=== PATIENT | female | born 1965 | race Caucasian/White ===

== ENCOUNTER 2023-03-30 17:30 | Outpatient (REF) | payer MEDICAID, SELFPAY ==
[2023-03-30 18:18] LABS: Appearance Urine Clear; Color Urine Yellow; Glucose Urine UA Negative (Negative); Leukocyte Esterase Urine Trace (Negative); Nitrite Urine Negative (Negative); PH 6.5 (5.0-9.0); UMIC TRIGGER UACC YES; Urine Blood Negative (Negative); Urine Ketones Negative (Negative); Urine Protein Negative (Neg-Trace)
[2023-03-30 18:23] LABS: Bacteria Urine None Seen (None Seen); Hyaline Casts Urine 0-2 /LPF (0-2); RBC Urine 0-2 /HPF (0-2); Squamous Epithelial Cell Urine 0-2 /HPF (0-2); WBC Urine 0-5 /HPF (0-5)
[2023-03-31 04:33] LABS: CT PCR NOT DETECTED (Not Detect.); NG PCR NOT DETECTED (Not Detect.)
[2023-03-31 15:41] LABS: BV Int Neg Control Negative (Negative); BV Int Pos Control Positive (Positive)
== END 2023-03-30 17:31 | disposition home or self-care (01) ==
LOC: HO.HHCLNP 17:30
PROVIDERS: Visit Provider Family Medicine
DX: R30.0 Dysuria (principal); N76.0 Acute vaginitis
CPT/HCPCS: 0353U; 81001; 87086; 87480; 87510; 87660

== ENCOUNTER 2023-07-07 13:52 | Outpatient (REF) | payer MEDICAID, SELFPAY ==
[2023-07-07 18:42] LABS: CT PCR NOT DETECTED (Not Detect.); NG PCR NOT DETECTED (Not Detect.)
[2023-07-09 14:30] LABS: BV Int Neg Control Negative (Negative); BV Int Pos Control Positive (Positive)
== END 2023-07-07 13:53 | disposition home or self-care (01) ==
LOC: HO.HHCLNP 13:52
PROVIDERS: Visit Provider Family Medicine
DX: N89.8 Other specified noninflammatory disorders of vagina (principal); Z11.3 Encounter for screening for infections with a predominantly sexual mode of transmission
CPT/HCPCS: 0353U; 87480; 87510; 87660

== ENCOUNTER 2023-09-28 17:53 | Outpatient (REF) | payer MEDICAID, SELFPAY ==
[2023-09-28 18:09] LABS: Appearance Urine Cloudy; Color Urine Yellow; Glucose Urine UA Negative (Negative); Leukocyte Esterase Urine Large (3+) (Negative); Nitrite Urine Negative (Negative); Specific Gravity - Urine 1.015 (1.005-1.025); UMIC TRIGGER UACC YES; Urine Blood Negative (Negative); Urine Ketones Negative (Negative); Urine Protein Negative (Neg-Trace)
[2023-09-28 18:15] LABS: Bacteria Urine 2+ (None Seen); Hyaline Casts Urine 0-2 /LPF (0-2); RBC Urine 0-2 /HPF (0-2); UACC Culture Trigger YES; WBC Urine 21-50 /HPF (0-5)
== END 2023-09-28 17:54 | disposition home or self-care (01) ==
LOC: HO.HHCLNP 17:53
PROVIDERS: Visit Provider Student in an Organized Health Care Education/Training Program
DX: R30.9 Painful micturition, unspecified (principal)
CPT/HCPCS: 81001; 87086

== ENCOUNTER 2024-03-28 17:50 | Outpatient (REF) | payer MEDICAID, SELFPAY ==
[2024-03-28 18:13] LABS: Appearance Urine Clear; Color Urine Yellow; Glucose Urine UA 250 mg/dL (Negative); Leukocyte Esterase Urine Small (1+) (Negative); Nitrite Urine Negative (Negative); UMIC TRIGGER UACC YES; Urine Blood Negative (Negative); Urine Ketones Negative (Negative); Urine Protein Negative (Neg-Trace)
[2024-03-28 18:40] LABS: Bacteria Urine Trace (None Seen); Hyaline Casts Urine 0-2 /LPF (0-2); RBC Urine 0-2 /HPF (0-2); UACC Culture Trigger YES; WBC Urine 0-5 /HPF (0-5)
== END 2024-03-28 17:51 | disposition home or self-care (01) ==
LOC: HO.HHCLNP 17:50
PROVIDERS: Visit Provider Student in an Organized Health Care Education/Training Program
DX: R30.0 Dysuria (principal)
CPT/HCPCS: 81001; 87086

== ENCOUNTER 2024-05-23 18:33 | Outpatient (REF) | payer MEDICAID, SELFPAY ==
[2024-05-24 09:19] LABS: Bacterial Vaginosis PCR NEGATIVE (Negative); Candida Group PCR NOT DETECTED (Not Detect); Candida glab krusei PCR NOT DETECTED (Not Detect); Trichomonas vaginalis PCR NOT DETECTED (Not Detect)
== END 2024-05-23 18:34 | disposition home or self-care (01) ==
LOC: HO.HHCLNP 18:33
PROVIDERS: Visit Provider Advanced Practice Midwife
DX: B37.31 Acute candidiasis of vulva and vagina (principal)
CPT/HCPCS: 0352U

== ENCOUNTER 2024-06-15 14:00 | Outpatient (REF) | payer MEDICAID, SELFPAY | END 2024-06-15 14:01 | disposition home or self-care (01) | LOC: HO.HHCLNP 14:00 | PROVIDERS: Visit Provider Family Medicine | DX: R30.0 Dysuria (principal); N30.00 Acute cystitis without hematuria | CPT/HCPCS: 87086; 87147 ==

== ENCOUNTER 2024-07-18 18:20 | Outpatient (REF) | payer MEDICAID, SELFPAY ==
[2024-07-18 18:49] LABS: Appearance Urine Cloudy; Color Urine Yellow; Glucose Urine UA Negative (Negative); Leukocyte Esterase Urine Large (3+) (Negative); Nitrite Urine Negative (Negative); UMIC TRIGGER UACC YES; Urine Blood Negative (Negative); Urine Ketones Negative (Negative); Urine Protein Negative (Neg-Trace)
[2024-07-18 18:54] LABS: Bacteria Urine Trace (None Seen); Hyaline Casts Urine 0-2 /LPF (0-2); RBC Urine 0-2 /HPF (0-2); UACC Culture Trigger YES; WBC Urine 21-50 /HPF (0-5)
[2024-07-19 13:16] LABS: Bacterial Vaginosis PCR NEGATIVE (Negative); Candida Group PCR NOT DETECTED (Not Detect); Candida glab krusei PCR NOT DETECTED (Not Detect); Trichomonas vaginalis PCR NOT DETECTED (Not Detect)
== END 2024-07-18 18:21 | disposition home or self-care (01) ==
LOC: HO.HHCLNP 18:20
PROVIDERS: Visit Provider Family Medicine
DX: B37.31 Acute candidiasis of vulva and vagina (principal)
CPT/HCPCS: 0352U; 81001; 87086; 87147

== ENCOUNTER 2024-08-10 14:13 | Outpatient (REF) | payer MEDICAID, SELFPAY ==
[2024-08-11 08:51] LABS: Adenovirus PCR Not Detected (Not Detect.); Bordetella parapertussis PCR Not Detected (Not Detect.); Bordetella pertussis PCR Not Detected (Not Detect.); Chlamydia pneumoniae PCR Not Detected (Not Detect.); Coronavirus 229E PCR Not Detected (Not Detect.); Coronavirus HKU1 PCR Not Detected (Not Detect.); Coronavirus NL63 PCR Not Detected (Not Detect.); Coronavirus OC43 PCR Not Detected (Not Detect.); Human metapneumovirus PCR Not Detected (Not Detect.); Influenza A PCR Not Detected (Not Detect.); Influenza B PCR Not Detected (Not Detect.); Mycoplasma pneumoniae PCR Not Detected (Not Detect.); Parainfluenza 1 PCR Not Detected (Not Detect.); Parainfluenza 2 PCR Not Detected (Not Detect.); Parainfluenza 3 PCR Not Detected (Not Detect.); Parainfluenza 4 PCR Not Detected (Not Detect.); RSV PCR Not Detected (Not Detect.); Rhino/Enterovirus PCR Not Detected (Not Detect.)
[2024-08-11 09:56] LABS: SARS-CoV-2 PCR Not Detected (Not Detect.)
== END 2024-08-10 14:14 | disposition home or self-care (01) ==
LOC: HO.HHCLNP 14:13
PROVIDERS: Visit Provider Family Medicine
DX: J06.9 Acute upper respiratory infection, unspecified (principal)
CPT/HCPCS: 87633

== ENCOUNTER 2024-09-05 14:32 | Outpatient (REF) | payer MEDICAID, SELFPAY ==
--- OUTSIDE RECORDS SUMMARY | 2024-09-05 18:28 | XMS_ITS | Encounter Summary ---
Author Organization [facility] Address [address] 7t [place] [address] Care Team Providers Care Business Area Manager Name Role Phone Rina Solorio MD Primary Care Provider [phone] Reason for Referral * Imaging (Routine) - Authorized Specialty Diagnoses / Procedures Referred By Contac t Referred To Contact Radiology Diagnoses Breast pain, left Procedures BI US Breast Limited Left Misty Krishna MD [address] [place] [address] Phone: tel: fax: [address] Phone: tel: fax: Referral ID Status Reason Start Date Expiration Date V isits Requested Visits Authorized [id number] Authorized 08/27/2024 08/27/2025 1 1 * Imaging (Routine) - Authorized Specialty Diagnoses / Procedures Referred By Contac t Referred To Contact Radiology Diagnoses Breast pain, left Procedures BI Mammogram Diagnostic Tomosynthesis added left Misty Krishna MD [address] [place] [address] Phone: tel: fax: [address] Phone: tel: fax: Referral ID Status Reason Start Date Expiration Date V isits Requested Visits Authorized [id number] Authorized 08/27/2024 08/27/2025 1 1 Encounter Details Date Type Department Care Team (Late st Contact Info) Description 08/27/2024 2:40 PM EST Office Visit [facility] [address] [place] [address] Misty Krishna MD [address], [place] [phone] Breast pain, left (Primary Dx) Social History Tobacco Use Types Packs/Day Years Used Date Smoking Tobacco: Never Passive Smoke Exposure: Never Smokeless Tobacco: Never Alcohol Use Standard Drinks/Week Comments Never 0 (1 standard drink = 0.6 oz pur e alcohol) Housing Stability Answer Date Recorded What is your housing situation today? I have moy marcum 03/06/[address] you li ve. Do you have problems with any of the following? None of the above 03/06/2024 Food Insecurity Answer Date Recorded Within the past 12 months, y ou worried that your food would run out before you got money to buy more: Never True 03/06/2024 Within the past 12 months,th e food you bought just didn't last and you didn't have enough money to get more: Never True Transportation Answer Date Recorded In the past 12 months, has l ack of transportation kept you from medical appts, meetings, work or from getting things needed for daily living? Yes, it has kept me from medical appointments or getting medications. 03/06/2024 Utilities Answer Date Recorded In the past 12 months, has t he electric, gas, oil or water company threatened to shut off services in your home? No 03/06/2024 Internet Access Answer Date Recorded Internet Access Q1 Yes 2024 Internet Access Q2 Not on file 2024 Comments No Sex and Gender Information Value Date Recorded Sex Assigned at Female 06/06/2022 10:22 AM EDT Legal Sex Female 10:22 AM EDT Gender Identity Female 06/06/2022 10:22 AM EDT Sexual Orientation Choose not to disclose 2021 10:22 AM EDT documented as of this encounter Last Filed Vital Signs Vital Sign Reading Time Taken Comments Blood Pressure 129/74 08/27/2024 2:17 PM EST Pulse 100 08/27/2024 2:17 PM EST Temperature 36.2 ??C (97.1 ??F) 08/27/2024 2:17 PM ES T Respiratory Rate 18 08/27/2024 2:17 PM EST Oxygen Saturation 99% 08/27/2024 2:17 PM EST Inhaled Oxygen Concentration - - Weight 62.6 kg (138 lb) 08/27/2024 2:17 PM EST Height 151.1 cm (4' 11.5 ) 08/27/2024 2:17 PM ES T Body Mass Index 27.41 08/27/2024 2:17 PM EST documented in this encounter Progress Notes * Lamin Zepeda - 08/27/2024 2:40 PM EST Subjective Patient ID: Yobany Lamar is a 59 y.o. female with PMHx of chronic cystitis and suprapubic tenderness who presents to walk in clinic for left arm and breast pain. Mammogram done 04/27/24, BIRADS - 1, negative. Pt had dental quaker done earlier today. No complications. She reports she has had pain across her left upper chest for the past 2 weeks. Pt notes pain is deep in her breast. She denies any associated symptoms, including dizziness, SOB, tingling in upper extremities or palpitations. She notes he is only due for her next mammogram in April 2025 as a routine check. Review of Systems Constitutional: Negative for fever and unexpected weight change. Respiratory: Negative for shortness of breath. Cardiovascular: Negative for chest pain. Gastrointestinal: Negative for abdominal pain. Genitourinary: Negative for difficulty urinating. Objective Visit Vitals BP 129/74 (BP Location: Right arm, Patient Position: Sitting, BP Cuff Size: Adult) Pulse 100 Temp 97.1 ??F (36.2 ??C) (Temporal) Resp 18 Body mass index is 27.41 kg/m??. Physical Exam Constitutional: Appearance: Normal appearance. Cardiovascular: Rate and Rhythm: Normal rate and regular rhythm. Heart sounds: Normal heart sounds. Pulmonary: Effort: Pulmonary effort is normal. Breath sounds: Normal breath sounds. Chest: Chest wall: No mass or tenderness. Breasts: Left: Tenderness present. No swelling, inverted nipple or mass. Abdominal: Tenderness: There is no abdominal tenderness. Musculoskeletal: Cervical back: Normal range of motion and neck supple. Lymphadenopathy: Cervical: No cervical adenopathy. Upper Body: Left upper body: No supraclavicular, axillary or pectoral adenopathy. Neurological: General: No focal deficit present. Mental Status: She is alert. Psychiatric: Behavior: Behavior normal. Problem List Items Addressed This Visit Breast pain, left - Primary Breast pain in left lateral breast x2 weeks. Normal mammogram in 04/2024. -ordered repeat mammogram 08/27/24 -ordered US of left breast tissue 08/27/24 Relevant Orders BI Mammogram Diagnostic Tomosynthesis added left BI US Breast Limited Left -No evidence of acute disease process. Suspect likely costochondritis.. Symptoms mild. -Will order imaging as specified in the plan for further evaluation of breast tissue. -ER precautions discussed. -Seek medical attention for worsening symptoms. I, Lamin Zepeda, am serving as a scribe to document services personally performed by Dr. Post, based on the patient's response to questions by provider and providers statements to me. documented in this encounter Miscellaneous Notes * Assessment & Plan Note - Lamin Zepeda - 08/27/2024 2:36 PM ESTAssociated Problem(s): Breast pain, left Breast pain in left lateral breast x2 weeks. Normal mammogram in 04/2024. -ordered repeat mammogram 08/27/24 -ordered US of left breast tissue 08/27/24 documented in this encounter Plan of Treatment Upcoming Encounters Date Type Department Care Team (Late st Contact Info) Description 09/06/2024 11:30 AM EST Office Visit [facility] [address] [place] [address] Aminta Chicas, JEFF [address] [place] [address] Scheduled Orders Name Type Priority Associated Diagnoses Orde r Schedule BI Mammogram Diagnostic Tomosynthesis added left Imaging Routine Breast pain, left Expected: 08/27/2024, Expires: 10/25/2025 BI US Breast Limited Left Imaging Routine Breast pain, left Expected: 08/27/2024, Expires: 10/25/2025 documented as of this encounter Visit Diagnoses Diagnosis Breast pain, left- Primary documented in this encounter Care Teams Business Area Manager Relationship Specialty Start Date End Date Rina Solorio MD [address] [place] [id number] PCP - General Family Medicine 12/15/15 documented as of this encounter
--- OUTSIDE RECORDS SUMMARY | 2024-09-05 18:28 | XMS_ITS | Encounter Summary ---
Author Organization [facility] Address [address] 7 [place] [address] Care Team Providers Care Veneer Sander Name Role Phone Rina Solorio MD Primary Care Provider [phone] Reason for Visit * Reason Comments Filling Encounter Details Date Type Department Care Team ([facility] Contact Info) Description 08/06/2024 8:00 AM EST Office Visit [facility] [address] [place], [place] [phone] Aminta Chicas DMD [address] [place], [place] [phone] Social History Tobacco Use Types Packs/Day Years [...] t he electric, gas, oil or water [employer] threatened to shut off services in your [...] Sign Reading Time Taken Comments Blood Pressure 120/80 08/06/2024 8:06 AM EST Pulse - - Temperature - - Respiratory Rate - - Oxygen Saturation - - Inhaled Oxygen Concentration - - Weight - - Height - - Body Mass Index - - documented in this encounter Progress Notes * Aminta Chicas DMD - 08/06/2024 8:00 AM EST Dental procedures in this visit [id number] - RESIN-BASED COMPOSITE - 2 SURFACES, POSTERIOR 31 DO (Completed) Service provider: Aminta Chicas DMD Billing provider: Gm Petersen DMD [id number] - CASE PRESENTATION, DETAILED AND EXTENSIVE TREATMENT PLANNING (Completed) Service provider: Aminta Chicas DMD Billing provider: Gm Petersen DMD Patient ID: Yobany Lamar is a 59 y.o. female. Time Out: Date: 08/06/2024 Location: [facility] Tooth: #31 Procedure: Yarsani Verified the above with patient, senior office assistant, and provider. Confirmed via patient's chart, intraorally and by radiographs. Directory Carrier: Yes. Language: German. Directory Carrier's Name: Ani Osman Composite religion done on #[address] Aminta Chicas DMD Risk, benefits, and alternatives discussed with the patient. CONSENT FORM INITIALED & SIGNED BY THE PATIENT AND COUNTERSIGNED BY Dr. Aminta Chicas DMD Medical history: Reviewed in EHR Vitals: Blood pressure 120/80. Allergies: Reviewed in EHR Medications: Reviewed in EHR ASA II - LA: 20% topical benzocaine; local infiltration with 1 carpule 2% lidocaine 1:100,000 epinephrine - Existing religion and recurrent decay removed - Matrix band used as needed - Desensitizer: GLUMA - Etching done using 37% phosphoric acid and rinsed. - revenue field agent applied and light cured. - Composite religion done using Filtek body and flowable composite, shade A3.5 - Anatomy and margins adjusted. - Occlusion checked with articulating paper. - Necessary reductions made. - Yarsani smoothed and polished. - Post op instructions given. - Patient made aware possible post op sensitivity. All patient questions answered. Patient comfortable upon dismissal. NV: Restorations Provider: Dr. Aminta Chicas DMD Repatcher: Ani Osman Supervising Dentist: Dr. Gm Petersen DMD * Gm Petersen DMD - 08/06/2024 8:00 AM EST I have reviewed the documentation and dental procedures made by the rendering provider, Aminta Chicas DMD, and approve their chart entries for this visit. Gm Petersen DMD documented in this encounter Plan of Treatment Upcoming Encounters Date Type Department Care Team (Late st Contact Info) Description 09/06/2024 11:30 AM EST Office Visit [facility] [address] [place] [address] Aminta Chicas DMD [address] [place] [address] documented as of this encounter Procedures Procedure Name Priority Date/Time Associated Diagnosis Comments 31 DO RESTORATIVE - RESIN-BASED COMPOSITE RESTORATIONS - DIRECT - RESIN-BASED COMPOSITE - TWO SURFACES, POSTERIOR Routine 08/06/2024 8:00 AM EST ADJUNCTIVE GENERAL SERVICES - PROFESSIONAL VISITS - CASE PRESENTATION, SUBSEQUENT TO DETAILED AND EXTENSIVE TREATMENT PLANNING Routine 08/06/2024 8:00 AM EST documented in this encounter Visit Diagnoses Not on filedocumented in this encounter Care Teams Veneer Sander Relationship Specialty Start Date End Date Rina Solorio MD [address] [place] [address] PCP - General Family Medicine 12/15/15 documented as of this encounter
--- OUTSIDE RECORDS SUMMARY | 2024-09-05 18:28 | XMS_ITS | Encounter Summary ---
Author Organization [facility] Address [address] 7 [place] [address] Care Team Providers Care Maintenance Planning Clerk Name Role Phone Rina Solorio MD Primary Care Provider [phone] Reason for Visit * Reason Comments Follow-up Dm Encounter Details Date Type Department Care Team ([facility] Contact Info) Description 09/05/2024 9:00 AM EST Office Visit [facility] [address] [place] [address] Rina Solorio MD [address] [place] [address] Atrophic vaginitis (Primary Dx); Type 2 diabetes mellitus without complication, without long-term current use of insulin ([facility]); Dietary counseling; Exercise counseling; Acute vaginitis; Insect sting allergy, current reaction, accidental or unintentional, initial encounter; Breast pain, left Social History Tobacco Use Types Packs/Day Years Used Date Smoking Tobacco: Never Passive Smoke Exposure: Never Smokeless Tobacco: Never Alcohol Use Standard Drinks/Week Comments Never 0 (1 standard drink = 0.6 oz pur e alcohol) Housing Stability Answer Date Recorded What is your housing situation today? I have moywong marcum 03/06/[address] you [...] Sign Reading Time Taken Comments Blood Pressure 130/80 09/05/2024 9:19 AM EST Pulse 92 09/05/2024 9:03 AM EST Temperature 36.4 ??C (97.6 ??F) 09/05/2024 9:03 AM ES T Respiratory Rate 20 09/05/2024 9:03 AM EST Oxygen Saturation 99% 09/05/2024 9:03 AM EST Inhaled Oxygen Concentration - - Weight 62.1 kg (137 lb) 09/05/2024 9:03 AM EST Height 151.1 cm (4' 11.5 ) 09/05/2024 9:03 AM ES T Body Mass Index 27.21 09/05/2024 9:03 AM EST documented in this encounter Progress Notes * Rina Solorio MD - 09/05/2024 9:00 AM EST Subjective Patient ID: Yobany Lamar is a 59 y.o. female who presents for follow-up. Yobany is a 59-year-old postmenopausal patient of mine here for diabetes follow- up. A1c has increased to 6.3 today. Admits her diet has slacked recently. And has gained a few pounds. Complains of occasional discomfort during intercourse with but also admits not using estrogen vaginal cream weekly for atrophic vaginitis. Her SALES PROMOTION OFFICER exam and Pap smear are up-to-date. She was seen recently by Dr. Krishna for left breast pain, breast mammogram and ultrasound were ordered but per patient she has not been called with these appointments yet. History provided by: Patient glazier supervisor used: No Diabetes She presents for her follow-up diabetic visit. She has type 2 diabetes mellitus. There are no hypoglycemic associated symptoms. Pertinent negatives for hypoglycemia include no dizziness, headaches ornervousness/anxiousness. There are no diabetic associated symptoms. Pertinent negatives for diabetes include no chest pain, no polydipsia and no polyuria. Risk factors for coronary artery disease include post-menopausal, obesity and diabetes mellitus. Current diabetic treatment includes diet. She is compliant with treatment most of the time. Review of Systems Constitutional: Negative for activity change, chills, fever and unexpected weight change. Respiratory: Negative for cough, shortness of breath and wheezing. Cardiovascular: Negative for chest pain, palpitations and leg swelling. Gastrointestinal: Negative for abdominal pain and blood in stool. Endocrine: Negative for polydipsia and polyuria. Genitourinary: Negative for decreased urine volume, difficulty urinating, dysuria, hematuria, vaginal discharge and vaginal pain. Musculoskeletal: Negative for arthralgias and gait problem. Skin: Negative for color change and rash. Neurological: Negative for dizziness and headaches. Hematological: Negative for adenopathy. Psychiatric/Behavioral: Negative for dysphoric mood, hallucinations, sleep disturbance and suicidalideas. The patient is not nervous/anxious. Objective BP 130/80 Pulse 92 Temp 97.6 ??F (36.4 ??C) (Oral) Resp 20 Ht 4' 11.5 (1.511 m) Wt 137 lb (62.1 kg) SpO2 99% BMI 27.21 kg/m?? Physical Exam Vitals reviewed. Constitutional: General: She is not in acute distress. Appearance: Normal appearance. She is not ill-appearing. HENT: Head: Normocephalic. Right Ear: Tympanic membrane and ear canal normal. Left Ear: Tympanic membrane and ear canal normal. Nose: Nose normal. Mouth/Throat: Mouth: Mucous membranes are moist. Pharynx: No oropharyngeal exudate or posterior oropharyngeal erythema. Eyes: Extraocular Movements: Extraocular movements intact. Conjunctiva/sclera: Conjunctivae normal. Pupils: Pupils are equal, round, and reactive to light. Cardiovascular: Rate and Rhythm: Normal rate and regular rhythm. Pulses: Normal pulses. Heart sounds: Normal heart sounds. Pulmonary: Effort: Pulmonary effort is normal. No respiratory distress. Breath sounds: Normal breath sounds. Abdominal: Palpations: Abdomen is soft. Musculoskeletal: General: Normal range of motion. Cervical back: Normal range of motion. Skin: General: Skin is warm. Capillary Refill: Capillary refill takes less than 2 seconds. Neurological: General: No focal deficit present. Mental Status: She is alert and oriented to person, place, and time. Psychiatric: Mood and Affect: Mood normal. Behavior: Behavior normal. Thought Content: Thought content normal. Judgment: Judgment normal. Assessment/Plan Diagnoses and all orders for this visit: Atrophic vaginitis Comments: Patient has vaginal estrogen cream at home but admits to not using it with good compliance. UA was negative today vaginitis symptoms for which a swab was done Orders: - Lipid Panel, Standard; Future - Basic Metabolic Panel, Fasting; Future - CBC auto differential; Future - Hepatic Function Panel; Future - Vitamin D, 25-Hydroxy, Total, Immunoassay; Future - TSH W/Reflex to FT4; Future Type 2 diabetes mellitus without complication, without long-term current use of insulin ([facility]) Comments: A1c is increasing since last one now at 6.3.On diet only which has slacked lately.Plans to watch her diet more closely as before and start exercising again. Labs ordered and drawn today, she will be called with results. Return to clinic in 3 months with me. Eye exam is up-to-date. Orders: - POCT A1C - POCT glucose manually resulted - Lipid Panel, Standard; Future - Basic Metabolic Panel, Fasting; Future - CBC auto differential; Future - Hepatic Function Panel; Future - Vitamin D, 25-Hydroxy, Total, Immunoassay; Future - TSH W/Reflex to FT4; Future Dietary counseling - Lipid Panel, Standard; Future - Basic Metabolic Panel, Fasting; Future - CBC auto differential; Future - Hepatic Function Panel; Future - Vitamin D, 25-Hydroxy, Total, Immunoassay; Future - TSH W/Reflex to FT4; Future Exercise counseling - Lipid Panel, Standard; Future - Basic Metabolic Panel, Fasting; Future - CBC auto differential; Future - Hepatic Function Panel; Future - Vitamin D, 25-Hydroxy, Total, Immunoassay; Future - TSH W/Reflex to FT4; Future Acute vaginitis Check for BV and call if if needed treatment. Use of water lubricant prior intercourse recommended,use of estrogen vaginal cream weekly as well. - Lipid Panel, Standard; Future - Basic Metabolic Panel, Fasting; Future - CBC auto differential; Future - Hepatic Function Panel; Future - Vitamin D, 25-Hydroxy, Total, Immunoassay; Future - TSH W/Reflex to FT4; Future - Bacterial Vaginosis Panel - POCT Urinalysis Insect sting allergy, current reaction, accidental or unintentional, initial encounter - EPINEPHrine (EpiPen 2-Kenny) 0.3 MG/0.3ML injection syringe; Inject 0.3 mL (0.3 mg) as directed 1 (one) time if needed for anaphylaxis for up to 1 dose. Inject into upper leg. Call 911 after use. Breast pain, left Comments: Patient was seen by another provider and days ago due to left breast pain. Ultrasound and mammogramwere ordered for her but never scheduled by [facility]. [facility]. Appointments handed to the patient. documented in this encounter Plan of Treatment Upcoming Encounters Date Type Department Care Team (Late st Contact Info) Description 09/06/2024 11:30 AM EST Office Visit [facility] [address] [place] [address] Aminta Chicas, DMD [address] [place] [address] Scheduled Orders Name Type Priority Associated Diagnoses Orde r Schedule Lipid Panel, Standard Lab Routine Type 2 diabetes mellitus without complication, without long-term current use of insulin ([facility]) Dietary counseling Exercise counseling Atrophic vaginitis Acute vaginitis Expected: 09/05/2024 (Approximate), Expires: 09/05/2025 Basic Metabolic Panel, Fasting Lab Routine Type 2 diabetes mellitus without complication, without long-term current use of insulin ([facility]) Dietary counseling Exercise counseling Atrophic vaginitis Acute vaginitis Expected: 09/05/2024 (Approximate), Expires: 09/05/2025 CBC auto differential Lab Routine Type 2 diabetes mellitus without complication, without long-term current use of insulin ([facility]) Dietary counseling Exercise counseling Atrophic vaginitis Acute vaginitis Expected: 09/05/2024 (Approximate), Expires: 09/05/2025 Hepatic Function Panel Lab Routine Type 2 diabetes mellitus without complication, without long-term current use of insulin ([facility]) Dietary counseling Exercise counseling Atrophic vaginitis Acute vaginitis Expected: 09/05/2024 (Approximate), Expires: 09/05/2025 Vitamin D, 25-Hydroxy, Total, Immunoassay Lab Routine Type 2 diabetes mellitus without complication, without long-term current use of insulin ([facility]) Dietary counseling Exercise counseling Atrophic vaginitis Acute vaginitis Expected: 09/05/2024 (Approximate), Expires: 09/05/2025 TSH W/Reflex to FT4 Lab Routine Type 2 diabetes mellitus without complication, without long-term current use of insulin ([facility]) Dietary counseling Exercise counseling Atrophic vaginitis Acute vaginitis Expected: 09/05/2024 (Approximate), Expires: 09/05/2025 Bacterial Vaginosis Panel Microbiology Routine Acute vaginitis Ordered: 09/05/2024 documented as of this encounter Procedures Procedure Name Priority Date/Time Associated Diagnosis Comments POCT GLYCATED HEMOGLOBIN, TOTAL Routine 09/05/2024 10:12 AM EST Type 2 diabetes mellitus without complication, without long-term current use of insulin ([facility]) POCT URINALYSIS DIPSTICK Routine 09/05/2024 10:11 AM EST Acute vaginitis POCT GLUCOSE Routine 09/05/2024 9:04 AM EST Type 2 diabetes mellitus without complication, without long-term current use of insulin ([facility]) documented in this encounter Results * (ABNORMAL) POCT A1C (09/05/2024 10:12 AM EST) Hemoglobin A1C 6.3(A) 4.0 - 6.0 % QC Media Lot # [id number] Lot# Expiration Date 8,126 Blood 09/05/2024 10:1 2 AM EST Rina Solorio MD POINT OF CARE TEST ENTER/EDIT ORDERABLES Final Result * POCT Urinalysis (09/05/2024 10:11 AM EST) Color, UA Yellow Clarity, UA Clear Glucose, UA Negative Bilirubin, UA Negative Ketones, UA Negative Spec Grav, UA 1.015 Blood, UA Negative Negative, None Detected pH, UA 7.0 Protein, UA Negative Urobilinogen, UA 0.2 Leukocytes, UA Trace Negative, Rare, Trace Comment:small Nitrite, UA Negative Negative, None Detected Appearance, UA clear QC Media Lot # [id number] Lot# Expiration Date 33,125 Urine 09/05/2024 10:1 1 AM EST Result [facility] Rina Solorio MD POINT OF CARE TEST ENTER/EDIT ORDERABLES Final Result * POCT glucose manually resulted (09/05/2024 9:04 AM EST) Glucose Blood, POC 121 60 - 200 mg/dL QC Media Lot # Comment:[id number] Lot# Expiration Date Comment:11/12/2024 Blood Capillary blood specimen / Unknown 09/05/2024 9:04 AM EST Result [facility] Rina Solorio MD POINT OF CARE TEST ENTER/EDIT ORDERABLES Final Result documented in this encounter Visit Diagnoses Diagnosis Atrophic vaginitis- Primary Postmenopausal atrophic vaginitis Type 2 diabetes mellitus without complication, without long-term current use of insulin ([facility]) Dietary counseling Dietary surveillance and counseling Exercise counseling Acute vaginitis Unspecified vaginitis and vulvovaginitis Insect sting allergy, current reaction, accidental or unintentional, initial encounter Breast pain, left documented in this encounter Care Teams Maintenance Planning Clerk Relationship Specialty Start Date End Date Rina Solorio MD [address] [place] [address] PCP - General Family Medicine 12/15/15 documented as of this encounter
--- OUTSIDE RECORDS SUMMARY | 2024-09-05 18:28 | XMS_ITS | Encounter Summary ---
Author Organization [employer] Address 75 [facility] 7 [place] [address] Care Team Providers Care Mash Preparatory Operator Name Role Phone Rina Solorio MD Primary Care Provider [phone] Reason for Visit * Reason Onset Date Comments Chart Prep 09/04/2024 Encounter Details Date Type Department Care Team ([facility] Contact Info) Description 09/04/2024 Telephone [facility] CHC MED & PEDS [address] [place], [place] [phone] Rina Solorio MD [address] [place] [address] Chart Prep Social History Tobacco Use Types Packs/Day Years Used Date Smoking Tobacco: Never Passive Smoke Exposure: Never Smokeless Tobacco: Never Alcohol Use Standard Drinks/Week Comments Never 0 (1 standard drink = 0.6 oz pur e alcohol) Housing Stability Answer Date Recorded What is your housing situation today? I have moy [place] 03/06/[address] you li [...] AM EDT documented as of this encounter Miscellaneous Notes * Telephone Encounter - Kiki Rubio [place] - 09/04/2024 10:31 AM EST Chart Prep Labs: done Images: pending Vaccines due: yes Referrals: pending appt Screenings: eye exam , Foot Exam, STI screening Overdue care gaps: A1C, Glucose documented in this encounter Plan of Treatment Upcoming Encounters Date Type Department Care Team (Late st Contact Info) Description 09/06/2024 11:30 AM EST Office Visit [facility] CHC ADULT DENTAL [address] [place] [address] Aminta Chicas, JEFF [address] [place] [address] documented as of this encounter Visit Diagnoses Not on filedocumented in this encounter Care Teams Mash Preparatory Operator Relationship Specialty Start Date End Date Rina Solorio MD [address] [place] [address] PCP - General Family Medicine 12/15/15 documented as of this encounter
--- OUTSIDE RECORDS SUMMARY | 2024-09-05 18:28 | XMS_ITS | Encounter Summary ---
Author Organization [employer] Address 75 [facility] 7t [place] [address] Care Team Providers Care Receiving Dock Checker Name Role Phone Rina Solorio MD Primary Care Provider [phone] Encounter Details Date Type Department Care Team (Late st Contact Info) Description 08/10/2024 12:20 PM EST Office Visit [facility] [address] [place] [phone] Modesto Adrian MD [address] [place] [address] [phone] Viral URI Social History Tobacco Use Types Packs/Day Years [...] Sign Reading Time Taken Comments Blood Pressure 128/90 08/10/2024 10:36 AM EST Pulse 83 08/10/2024 10:36 AM EST Temperature 36.7 ??C (98.1 ??F) 08/10/2024 10:[address] Respiratory Rate 20 08/10/2024 10:36 AM EST Oxygen Saturation 99% 08/10/2024 10:36 AM EST Inhaled Oxygen Concentration - - Weight 62.6 kg (138 lb) 08/10/2024 10:36 AM EST Height 151.1 cm (4' 11.5 ) 08/10/2024 10:[address] Body Mass Index 27.41 08/10/2024 10:36 AM EST documented in this encounter Progress Notes * Modesto Adrian MD - 08/10/2024 12:20 PM EST Subjective History was provided by the patient. Yobany Lamar is a 59 y.o. female who presents for evaluation of symptoms of a URI. Symptoms include fever, runny nose, chills, congestion, sore throat, and headache . Onset of symptoms was 3days ago, unchanged since that time. Associated negative symptoms include nausea, vomiting, diarrhea, ear pain, and rash. Evaluation to date: none. Treatment to date: none Daughter here with similar symptoms. Objective Vitals: 08/10/24 1036 BP: 128/90 BP Location: Left arm Patient Position: Sitting BP Cuff Size: Adult Pulse: 83 Resp: 20 Temp: 98.1 ??F (36.7 ??C) TempSrc: Oral SpO2: 99% Weight: 138 lb (62.6 kg) Height: 4' 11.5 (1.511 m) Physical Exam Vitals reviewed. Constitutional: Appearance: Normal appearance. She is normal weight. HENT: Head: Normocephalic and atraumatic. Right Ear: Tympanic membrane, ear canal and external ear normal. Left Ear: Tympanic membrane, ear canal and external ear normal. Nose: Nose normal. No congestion or rhinorrhea. Mouth/Throat: Mouth: Mucous membranes are moist. Pharynx: Oropharynx is clear. Posterior oropharyngeal erythema present. No oropharyngeal exudate. Eyes: Extraocular Movements: Extraocular movements intact. Conjunctiva/sclera: Conjunctivae normal. Pupils: Pupils are equal, round, and reactive to light. Cardiovascular: Rate and Rhythm: Normal rate and regular rhythm. Heart sounds: Normal heart sounds. Pulmonary: Effort: Pulmonary effort is normal. Breath sounds: Normal breath sounds. Musculoskeletal: General: Normal range of motion. Cervical back: Normal range of motion and neck supple. Lymphadenopathy: Cervical: No cervical adenopathy. Skin: General: Skin is warm and dry. Neurological: General: No focal deficit present. Mental Status: She is alert and oriented to person, place, and time. Mental status is at baseline. Psychiatric: Mood and Affect: Mood normal. Behavior: Behavior normal. Thought Content: Thought content normal. Judgment: Judgment normal. Diagnoses and all orders for this visit: Viral URI - POCT Rapid Influenza B ANDERSON ID NOW - POCT Rapid Strep A ANDERSON ID NOW - POCT Rapid Influenza A ANDERSON ID NOW - POCT Rapid Covid-19 ANDERSON ID NOW - Respiratory Viral Panel PCR; Future Patient with a clinical presentation of viral URI Normal pulmonary exam and no respiratory distress O2 sat reassuring Rapid COVID-19, Influenza A/B, and Strep tests all negative Check Respiratory Panel send out Discussed supportive care with ample hydration, sleep position and rest OTC supportive medications reviewed Droplet precautions discussed Advised to contact the clinic if no improvement of symptoms Indications for UC/ER use reviewed documented in this encounter Plan of Treatment Upcoming Encounters Date Type Department Care Team ([facility] st Contact Info) Description 09/06/2024 11:30 AM EST Office Visit [facility] ADULT DENTAL [address] [place] [address] Aminta Chicas DMD [address] [place] [address] documented as of this encounter Procedures Procedure Name Priority Date/Time Associated Diagnosis Comments POCT COVID-19 AG ANDERSON ID NOW Routine 08/10/2024 10:50 AM EST Viral URI POCT INFLUENZA A (ID NOW RAPID MOLECULAR) Routine 08/10/2024 10:49 AM EST Viral URI POC ANDERSON ID NOW STREP A Routine 08/10/2024 10:49 AM EST Viral URI POCT INFLUENZA B (ID NOW RAPID MOLECULAR) Routine 08/10/2024 10:48 AM EST Viral URI RESPIRATORY VIRAL PANEL PCR Routine 08/10/2024 10:00 AM EST Viral URI documented in this encounter Results * POCT Rapid Covid-19 ANDERSON ID NOW (08/10/2024 10:50 AM EST) Coronavirus Antigen PCR Negative Negative, Indeterminate, None Detected, Invalid, Specimen unsatisfactory for evaluation, Weakly Positive QC Media Lot # [id number] Lot# Expiration Date Swab 08/10/2024 10:5 0 AM EST us Modesto Adrian MD POINT OF CARE TEST ENTER/EDIT OR DERABLES Final Result * POCT Rapid Influenza A ANDERSON ID NOW (08/10/2024 10:49 AM EST) Influenza A Negative Negative, Indeterminate [facility] QC Media Lot # [id number] [facility] Lot# Expiration Date [facility] Swab 08/10/2024 10:4 9 AM EST us Modesto Adrian MD POINT OF CARE TEST ENTER/EDIT OR DERABLES Final Result [facility] [address] [place] [phone] * POCT Rapid Strep A ANDERSON ID NOW (08/10/2024 10:49 AM EST) [facility] Rapid Strep A Screen Negative Negative, None Detected QC Media Lot # [id number] Lot# Expiration Date 9141,026 Swab 08/10/2024 10:4 9 AM EST Modesto Adrian MD POINT OF CARE TEST ENTER/EDIT OR DERABLES Final Result * POCT Rapid Influenza B ANDERSON ID NOW (08/10/2024 10:48 AM EST) [facility] Influenza B Negative Negative, Indeterminate [facility] QC Media Lot # [id number] [facility] Lot# Expiration Date , [facility] Swab 08/10/2024 10:4 8 AM EST Modesto Adrian MD POINT OF CARE TEST ENTER/EDIT OR DERABLES Final Result [facility] [address] [place] [phone] * Respiratory Viral Panel PCR (08/10/2024 10:00 AM EST) [facility] Adenovirus PCR Not Detected Not Detect. [facility] Bordetella pertussis PCR Not Detected Not Detect. [facility] Comment:Interpret results wi th caution. If B. pertussis isspecifically suspected, additional testing using analternate method is recommended. Bordetella parapertussis PCR Not Detected Not Detect. [facility] Chlamydia pneumoniae PCR Not Detected Not Detect. [facility] Coronavirus 229E PCR Not Detected Not Detect. [facility] Coronavirus HKU1 PCR Not Detected Not Detect. [facility] Coronavirus NL63 PCR Not Detected Not Detect. [facility] Coronavirus OC43 PCR Not Detected Not Detect. [facility] SARS-CoV-2 PCR Not Detected Not Detect. [facility] Comment:SARS-CoV-2 not detec eun by real-time RT-PCR.Note: If clinical suspicion for Sars-CoV-2 is high, continueto maintain precautions and consider repeat testing.Test results should be interpreted in the context ofclinical findings and other laboratory data.Rare polymorphisms exist that could lead to false-negativeor false-positive results. If results do not match theclinical findings, additional testing should be considered.Results reported to MARISSA TRISTAN.This test has been authorized by the FDA under the EmergencyUse Authorization (EUA) for use by authorized laboratories. Influenza A PCR Not Detected Not Detect. [facility] Influenza B PCR Not Detected Not Detect. [facility] Human metapneumovirus PCR Not Detected Not Detect. [facility] Rhino/Enterovirus PCR Not Detected Not Detect. [facility] Mycoplasma pneumoniae PCR Not Detected Not Detect. [facility] Parainfluenza 1 PCR Not Detected Not Detect. [facility] Parainfluenza 2 PCR Not Detected Not Detect. [facility] Parainfluenza 3 PCR Not Detected Not Detect. [facility] Parainfluenza 4 PCR Not Detected Not Detect. [facility] RSV PCR Not Detected Not Detect. [facility] Resp Panel NA Note See Note [facility] Comment:All results must be correlated with clinical findings.Negative results should not be used as the sole basis fordiagnosis, treatment, or other management decisions.A negative result does not exclude the possibility of viralor bacterial infection. Negative results may occur from thepresence of sequence variants in the region targeted by theassay, the presence of inhibitors, an infection caused by anorganism not detected by the panel, or lower respiratorytract infections that are not detected by a nasopharyngealswab specimen. Test results may also be affected byconcurrent antiviral/antibacterial therapy or levels oforganism in the specimen that are below the limit ofdetection for this test.This assay is performed by Multiplexed PCR, utilizing [employer]. 08/10/2024 10:0 0 AM EST 08/10/2024 2:14 PM EST us Modesto Adrian MD LAB BLOOD ORDERABLES Final Resul t [facility] [address] [place] [phone] [phone] documented in this encounter Visit Diagnoses Diagnosis Viral URI Acute upper respiratory infections of unspecified site documented in this encounter Care Teams Receiving Dock Checker Relationship Specialty Start Date End Date Rina Solorio MD [address] [place] [phone] PCP - General Family Medicine 12/15/15 documented as of this encounter
--- OUTSIDE RECORDS SUMMARY | 2024-09-05 18:28 | XMS_ITS | Encounter Summary ---
Author Organization [employer] Address 75 [facility] 7t [place] [address] Care Team Providers Care Textile Conversion Manager Name Role Phone Rina Solorio MD Primary Care Provider [phone] Encounter Details Date Type Department Care Team (Latest Contact Info) Description 09/05/2024 Travel Social History Tobacco Use Types Packs/Day Years [...] AM EDT documented as of this encounter Plan of Treatment Upcoming Encounters Date Type Department Care Team ([facility] st Contact Info) Description 09/06/2024 11:30 AM EST Office Visit [facility] ADULT DENTAL [address] [place] [address] Aminta Chicas, DMD [address] [place] [address] documented as of this encounter Visit Diagnoses Not on filedocumented in this encounter Care Teams Textile Conversion Manager Relationship Specialty Start Date End Date Rina Solorio MD [address] [place] [address] PCP - General Family Medicine 12/15/15 documented as of this encounter
--- OUTSIDE RECORDS SUMMARY | 2024-09-05 18:28 | XMS_ITS | Encounter Summary ---
Author Organization [employer] Address 75 [facility] 7 [place] [address] Care Team Providers Care Metal Moulder'S Assistant Name Role Phone Rina Solorio MD Primary Care Provider [phone] Reason for Visit * Reason Comments Filling Encounter Details Date Type Department Care Team ([facility] st Contact Info) Description 08/27/2024 9:00 AM EST Office Visit [facility] ADULT DENTAL [address] [place], [place] [phone] Aminta Chicas DMD [address] [place], [place] [phone] Social History Tobacco Use Types Packs/Day Years [...] t he electric, gas, oil or water [employer] threatened to shut off services in your [...] AM EDT documented as of this encounter Progress Notes * Aminta Chicas DMD - 08/27/2024 9:00 AM EST Dental procedures in this visit D2392 - RESTORATIVE - RESIN-BASED COMPOSITE RESTORATIONS - DIRECT - RESIN-BASED COMPOSITE - TWO SURFACES, POSTERIOR 2 DO (Completed) Service provider: Aminta Chicas DMD Billing provider: Ailyn Rodriguez DDS [id number] - ADJUNCTIVE GENERAL SERVICES - PROFESSIONAL VISITS - CASE PRESENTATION, SUBSEQUENT TO DETAILED AND EXTENSIVE TREATMENT PLANNING (Completed) Service provider: Aminta Chicas DMD Billing provider: Ailyn Rodriguez DDS Patient ID: Yobany Lamar is a 59 y.o. female. Time Out: Date: 08/27/2024 Location: [facility] Tooth: #2 Procedure: Orthodox Verified the above with patient, office assistant receptionist, and provider. Confirmed via patient's chart, intraorally and by radiographs. Soil Engineer: Yes. Language: Swiss. Soil Engineer's Name: Ani Osman Composite episcopal done on #[address] Aminta Chicas DMD Risk, benefits, and alternatives discussed with the patient. CONSENT FORM INITIALED & SIGNED BY THE PATIENT AND COUNTERSIGNED BY Dr. Aminta Chicas DMD Medical history: Reviewed in EHR Vitals: There were no vitals taken for this visit. Allergies: Reviewed in EHR Medications: Reviewed in EHR ASA II - LA: 20% topical benzocaine; local infiltration with 1 carpule 2% lidocaine 1:100,000 epinephrine - Existing episcopal and recurrent decay removed - Matrix band and wedge used as needed - Desensitizer: GLUMA - Etching done using 37% phosphoric acid and rinsed. - dramatic agent applied and light cured. - Composite episcopal done using Ionofill and Filtek body and flowable composite, shade A3.5 - Anatomy and margins adjusted. - Proximal contact confirmed with floss. - Occlusion checked with articulating paper. - Necessary reductions made. - Orthodox smoothed and polished. - Post op instructions given. - Patient made aware possible post op sensitivity. - Post op BW taken. Explained to patient the importance of flossing between those teeth. Due to the bone loss in that area and supraeruption of tooth #2 recommended use of interproximal brushes to clean between teeth. Patient interested in lower RPD to replace missing mandibular teeth. Patient states she had one in the past but has not had one for some time now. All patient questions answered. Patient comfortable upon dismissal. NV: RPD Impressions Provider: Dr. Aminta Chicas DMD Cdc Associate: Ani Osman Supervising Dentist: Dr. Ailyn Rodriguez DDS * Ailyn Rodriguez DDS - 08/27/2024 9:00 AM EST I have reviewed the documentation and dental procedures completed by the rendering provider, Aminta Chicas DMD, and approve their chart entries for this visit. LOPEZ Woodson DDS documented in this encounter Plan of Treatment Upcoming Encounters Date Type Department Care Team (Late st Contact Info) Description 09/06/2024 11:30 AM EST Office Visit [facility] ADULT DENTAL [address] [place] [address] Aminta Chicas DMD [address] [place] [address] Scheduled Orders Name Type Priority Associated Diagnoses Orde r Schedule 30,19,18 30,19,18 MANDIBULAR PARTIAL DENTURE - RESIN BASE (INCLUDING, RETENTIVE/CLASPING MATERIALS, RESTS, AND TEETH) Dental Routine [address] arting 08/27/2024 DENTURE IMPRESSION Dental Routine 1 Occu rrences starting 08/27/2024 documented as of this encounter Procedures Procedure Name Priority Date/Time Associated Diagnosis Comments 2 DO RESTORATIVE - RESIN-BASED COMPOSITE RESTORATIONS - DIRECT - RESIN-BASED COMPOSITE - TWO SURFACES, POSTERIOR Routine 08/27/2024 9:00 AM EST ADJUNCTIVE GENERAL SERVICES - PROFESSIONAL VISITS - CASE PRESENTATION, SUBSEQUENT TO DETAILED AND EXTENSIVE TREATMENT PLANNING Routine 08/27/2024 9:00 AM EST BITEWING - SINGLE RADIOGRAPHIC IMAGE Routine 08/27/2024 9:00 AM EST documented in this encounter Visit Diagnoses Not on filedocumented in this encounter Care Teams Metal Moulder'S Assistant Relationship Specialty Start Date End Date Rina Solorio MD [address] [place] [address] PCP - General Family Medicine 12/15/15 documented as of this encounter
--- OUTSIDE RECORDS SUMMARY | 2024-09-05 18:29 | XMS_ITS | Encounter Summary ---
Author Organization [facility] Address 75 [facility] 7 [place] [address] Care Team Providers Care Paleontology Teacher Name Role Phone Rina Solorio MD Primary Care Provider [phone] Encounter Details Date Type Department Care Team (Latest Contact Info) Description 12/28/2021 Abstract [facility] CONVERSIONS Dental, Provider, DDS Social History Tobacco Use Types Packs/Day Years Used Date Smoking Tobacco: Never Assessed Comments Unknown Sex and Gender Information Value Date Recorded [...] Description 09/06/2024 11:30 AM EST Office Visit [facility] ADULT DENTAL [address] [place] [address] Aminta Chicas DMD [address] [place] [address] documented as of this encounter Visit Diagnoses Not on filedocumented in this encounter Care Teams Paleontology Teacher Relationship Specialty Start Date End Date Rina Solorio MD [address] [place] [address] PCP - General Family Medicine 12/15/15 documented as of this encounter
--- OUTSIDE RECORDS SUMMARY | 2024-09-05 18:29 | XMS_ITS | Encounter Summary ---
Author Organization [employer] Address 75 [facility] 7 [place] [address] Care Team Providers Care Comic Book Designer Name Role Phone Rina Solorio MD Primary Care Provider [phone] Reason for Visit * Reason Onset Date Comments Appointment Request 08/30/2022 Encounter Details Date Type Department Care Team ([facility] st Contact Info) Description 08/30/2022 Telephone [facility] CHC MED & PEDS [address] [place], [place] [phone] Rina Solorio MD [address] [place] [address] Appointment Request Social History Tobacco Use Types Packs/Day Years Used Date Smoking Tobacco: Never Passive Smoke Exposure: Never Smokeless Tobacco: Never Alcohol Use Standard Drinks/Week Comments Never 0 (1 standard drink = 0.6 oz pur e alcohol) Comments Unknown Sex and Gender Information Value Date Recorded Sex Assigned at Female 06/06/2022 10:22 AM EDT Legal Sex Female 10:22 AM EDT Gender Identity Female 06/06/2022 10:22 AM EDT Sexual Orientation Choose not to disclose 2021 10:22 AM EDT COVID-19 Exposure Response Date Recorded In the last 10 days, have yo u been in contact with someone who was confirmed or suspected to have Coronavirus/COVID-19? No / Unsure 08/25/2022 1:27 PM EST documented as of this encounter Miscellaneous Notes * Telephone Encounter - Peter Perez RN - 08/30/2022 11:32 AM EST Please see message below and follow up with pt. Thank you. * Telephone Encounter - Evgeny Mattson - 08/30/2022 10:36 AM EST Tc from pt requesting a status on the appt for her BI Mammogram Diagnostic Bilateral and BI US Breast Complete Left If any concerns please contact [phone] Croatian Speaker documented in this encounter Plan of Treatment Upcoming Encounters Date Type Department Care Team (Late st Contact Info) Description 09/06/2024 11:30 AM EST Office Visit [facility] ADULT DENTAL [address] [place], [place] [phone] Aminta Chicas DMD [address] [place] [address] documented as of this encounter Visit Diagnoses Not on filedocumented in this encounter Care Teams Comic Book Designer Relationship Specialty Start Date End Date Rina Solorio MD [address] [place] [address] PCP - General Family Medicine 12/15/15 documented as of this encounter
--- OUTSIDE RECORDS SUMMARY | 2024-09-05 18:29 | XMS_ITS | Clinical Summary ---
Author Organization [facility] it Address [address] [place] [id number] Care Team Providers Care Medicinal Chemist Name Role Phone Jadiel Daly MD Primary Care Provider [phone] Surgical History Surgery Date Site/Laterality Comments SECTION PROCEDURE: [place] DELIVERY ONLY; COMMENT: x 5 OTHER SURGICAL HISTORY PROCEDURE: [place] UNLISTED LAPAROSCOPY PROCEDURE UTERUS Medical History Medical History Date Comments Pap smear abnormality of cervix 08/26/2014 DX:Pap smear abnormality of cervix Family History Medical History Relation Name Comments Diabetes Father Diabetes Sister 1 Relation Name Status Comments Brother 1 Alive Brother 2 Alive Brother 3 Alive Daughter 1 Tara Alive Daughter 2 Coralise Alive Daughter 3 Isarereles Alive Father (Age 63) Maternal Grandfather Maternal Grandmother Mother (Age 73) Brain canc er Paternal Grandfather Paternal Grandmother Alive Sister 1 Sister 2 Alive Sister 3 Alive Son Charanjit Alive Social History Tobacco Use Types Packs/Day Years Used Date Smoking Tobacco: Never Smokeless Tobacco: Never Alcohol Use Standard Drinks/Week Comments No 0 (1 standard drink = 0.6 oz pur e alcohol) Sex and Gender Information Value Date Recorded Sex Assigned at Not on file Gender Identity Not on file Sexual Orientation Not on file Obstetrics History Last Filed Vital Signs Vital Sign Reading Time Taken Comments Blood Pressure 110/60 05/09/2023 1:05 PM EDT Sit ting L Arm Pulse 68 05/09/2023 1:05 PM EDT Temperature - - Respiratory Rate - - Oxygen Saturation - - Inhaled Oxygen Concentration - - Weight 63 kg (139 lb) 05/09/2023 1:05 PM EDT Height 149.9 cm (4' 11 ) 05/09/2023 1:05 PM EDT Body Mass Index 28.07 05/09/2023 1:05 PM EDT Plan of Treatment Upcoming Encounters Date Type Department Care Team (Late st Contact Info) Description 09/20/2024 1:00 PM EST Appointment [facility] Ultrasound [address] [place] [address] Health Maintenance Due Date Last Done Comments Hepatitis B Vaccines (1 of 3 - 19+ 3-dose series) 1984 Cervical Cancer Screening: HPV 1986 Zoster Vaccines (1 of 2) 2015 Colorectal Cancer Screening: Colonoscopy 07/10/2022 Depression Screening 07/10/2022 HIV Screening 07/10/2022 Hepatitis C Screening 07/10/2022 Social Influencers of Health Screening 07/10/2022 COVID-19 Vaccine ( - season) 2024 Influenza Vaccine (#1) 2024 10/14/2016, 2006 DTaP,Tdap,and Td Vaccines (2 - Td or Tdap) 08/26/2024 08/26/2014 Breast Cancer Screening 04/29/2026 04/29/20 24, 04/24/2023, 04/20/2022, Additional history exists RSV Immunization Patients 60+ Years Old (1 - 1-dose 75+ series) 2040 HIB Vaccines Aged Out No longer eligi ble based on patient's age to complete this topic HPV Vaccines Aged Out No longer eligi ble based on patient's age to complete this topic Hepatitis A Vaccines Aged Out No long er eligible based on patient's age to complete this topic IPV Vaccines Aged Out No longer eligi ble based on patient's age to complete this topic MMR Vaccines Aged Out No longer eligi ble based on patient's age to complete this topic Meningococcal ACWY Vaccine Aged Out N o longer eligible based on patient's age to complete this topic Pneumococcal Vaccine: Pediatrics (0 to 5 Years) and At-Risk Patients (6 to 64 Years) Aged Out No longer eligible based on patient's age to complete this topic RSV Immunization Patients Under 20 months Aged Out No longer eligible based on patient's age to complete this topic Varicella Vaccines Aged Out No longer eligible based on patient's age to complete this topic Procedures Procedure Name Priority Date/Time Associated Diagnosis Comments LEXY SCREENING DIGITAL Routine 04/29/2024 9:43 AM EDT Encounter for screening mammogram for malignant neoplasm of breast from Last 3 Months or Most Recently Relevant to Health Maintenance Results * [facility] SCREENING DIGITAL (04/29/2024 9:43 AM EDT) Anatomical Region Laterality Modality Mammography 04/25/2024 1:25 PM EDT Narrative 04/29/2024 9:43 AM EDT [facility] Diagnostic Imaging Department [address] [place] [id number] Patient: ??YOBANY AUSTIN ?/Age/Sex: 1965 - 59 - F Unit#: ??[id number] ? Location/Status: ??SPDIMAM/REG CLI ? Mnemonic/Ordering Site: ??DIGSC/SPMAM Ordering Physician: ??ALEISHA SOLORIO [facility] Screening Digital - 04/27/[address]20 Report Status:Signed EXAM: [facility] Screening Digital EXAM DATE AND TIME: 04/27/2024 9:22 AM HISTORY: ??Screening. COMPARISON: ??04/24/23, 04/20/22, 04/14/21 TECHNIQUE: Bilateral digital breast tomosynthesis was performed in the CC and MLO projections. Computer aided detection with iCAD Vaimicom 3D 3.1 was employed. TISSUE DENSITY: b. There are scattered areas of fibroglandular density. FINDINGS: No suspicious masses, grouped microcalcifications, or areas of architectural distortion are seen. The skin and vascularity are unremarkable. IMPRESSION: Stable mammographic appearance of the breasts. ??No evidence of malignancy is seen. A negative mammogram in the presence of a clinically suspicious palpable abnormality does not preclude the possibility of malignancy or alter the indications for biopsy. BI-RADS: ??Category 1: Negative RECOMMENDATION(S): 1: Routine screening mammogram BILATERAL in 1 year. M[facility] performed at [facility] [address] [place] [address] Dictating Physician: ??ERYN GRAJEDA MD Electronically Signed by: ??ERYN GRAJEDA MD Dic Date/Time: ??04/29/24941 Sign date/Time: ??04/29/24942 Procedure Note Eryn Grajeda MD - 05/22/2024 [facility] Diagnostic Imaging Department [address] [place] [address] Patient: YOBANY AUSTIN./Age/Sex: 1965 - 59 - F Unit#: [id number] [facility]: [facility] Mnemonic/Ordering Site: [facility] Ordering Physician: ALEISHA SOLORIO [facility] Screening Digital - 04/27/24 - 920 Report Status:Signed EXAM: [facility] Screening Digital EXAM DATE AND TIME: 04/27/2024 9:22 AM HISTORY: Screening. COMPARISON: 04/24/23, 04/20/22, 04/14/21 TECHNIQUE: Bilateral digital breast tomosynthesis was performed in the CCand MLO projections. Computer aided detection with iCAD Vaimicom 3D 3.1was employed. TISSUE DENSITY: b. There are scattered areas of fibroglandular density. FINDINGS: No suspicious masses, grouped microcalcifications, or areas ofarchitectural distortion are seen. The skin and vascularity are unremarkable. IMPRESSION: Stable mammographic appearance of the breasts. No evidence of malignancyis seen. A negative mammogram in the presence of a clinically suspicious palpable abnormality does not preclude the possibility of malignancy or alter the indications for biopsy. BI-RADS: Category 1: Negative RECOMMENDATION(S): 1: Routine screening mammogram BILATERAL in 1 year. Mammogram performed at [facility] [place] [address] Dictating Physician: ERYN GRAJEDA MD Electronically Signed by: ERYN GRAJEDA MD Dic Date/Time: 04/29/24941 Sign date/Time: 04/29/24942 Aleisha Solorio MD IMG BI PROCEDURES from Last 3 Months or Most Recently Relevant to Health Maintenance Advance Directives Documents on File Type Date Recorded Patient District Loss Prevention Manager Expl anation Health Care Decision (hx) 02/27/2013 AD BRAND DIRECTIVE Health Care Decision (hx) 02/27/2013 AD BRAND DIRECTIVE Health Care Decision (hx) 02/27/2013 AD BRAND DIRECTIVE Health Care Decision (hx) 02/27/2013 AD BRAND DIRECTIVE Health Care Decision (hx) 02/27/2013 AD BRAND DIRECTIVE Health Care Decision (hx) 02/27/2013 AD BRAND DIRECTIVE Health Care Decision (hx) 02/27/2013 AD BARND DIRECTIVE Health Care Decision (hx) 02/27/2013 AD BRAND DIRECTIVE Health Care Decision (hx) 02/27/2013 AD BRAND DIRECTIVE Health Care Decision (hx) 02/27/2013 AD BRAND DIRECTIVE Health Care Decision (hx) 02/27/2013 AD BRAND DIRECTIVE Health Care Decision (hx) 02/27/2013 AD BRAND DIRECTIVE Health Care Decision (hx) 02/20/2013 AD BRAND DIRECTIVE Health Care Decision (hx) 02/20/2013 AD BRAND DIRECTIVE Health Care Decision (hx) 02/20/2013 AD BRAND DIRECTIVE Health Care Decision (hx) 02/20/2013 AD BRAND DIRECTIVE Health Care Decision (hx) 02/20/2013 AD BRAND DIRECTIVE Health Care Decision (hx) 02/20/2013 AD BRAND DIRECTIVE Health Care Decision (hx) 02/20/2013 AD BRAND DIRECTIVE Health Care Decision (hx) 02/20/2013 AD BRAND DIRECTIVE Health Care Decision (hx) 02/20/2013 AD BRAND DIRECTIVE Health Care Decision (hx) 02/20/2013 AD BRAND DIRECTIVE Health Care Decision (hx) 02/20/2013 AD BRAND DIRECTIVE Health Care Decision (hx) 02/20/2013 AD BRAND DIRECTIVE Care Teams Medicinal Chemist Relationship Specialty Start Date End Date Jadiel Daly MD [address] [place] [address] PCP - General Internal Medicine 03/09/13
--- OUTSIDE RECORDS SUMMARY | 2024-09-05 18:29 | XMS_ITS | Encounter Summary ---
Author Organization [id number] [facility] Address [address] [facility] [address] [place] [address] Care Team Providers Care Veterinary Assistant Name Role Phone Rina Solorio MD Primary Care Provider [phone] Reason for Visit * Reason Comments Med Refill Encounter Details Date Type Department Care Team ([facility] Contact Info) Description 12/06/2022 Refill [facility] [address], [place] [phone] Rina Solorio MD [address] [place] [address] Social History Tobacco Use Types Packs/Day Years [...] Encounters Date Type Department Care Team (Late Contact Info) Description 09/06/2024 11:30 AM EST Office Visit [facility] ADULT DENTAL [address], [place] [phone] Aminta Chicas DMD [address] [place] [address] documented as of this encounter Visit Diagnoses Not on filedocumented in this encounter Care Teams Veterinary Assistant Relationship Specialty Start Date End Date Rina Solorio MD [address] [place] [id number] PCP - General Family Medicine 12/15/15 documented as of this encounter
--- OUTSIDE RECORDS SUMMARY | 2024-09-05 18:29 | XMS_ITS | Encounter Summary ---
Author Organization [employer] [facility] Address [address] [facility] [address] [address] [place] [address] Care Team Providers Care Software Engineering Supervisor Name Role Phone Rina Solorio MD Primary Care Provider [phone] Encounter Details Date Type Department Care Team (Late Contact Info) Description 12/06/2022 Orders Only [facility] [address] [place] [address] Izabella Anaya LPN Social History Tobacco Use Types Packs/Day Years [...] Visit [facility] [address] [place] [address] Aminta Chicas DMD [address] [place] [address] documented as of this encounter Visit Diagnoses Not on filedocumented in this encounter Care Teams Software Engineering Supervisor Relationship Specialty Start Date End Date Rina Solorio MD [address] [place] [address] PCP - General Family Medicine 12/15/15 documented as of this encounter
--- OUTSIDE RECORDS SUMMARY | 2024-09-05 18:29 | XMS_ITS | Clinical Summary ---
Author Organization [employer] Address [address] [place] [address] Care Team Providers Care Crumb Packer Name Role Phone Rina Solorio MD Primary Care Provider [phone] Allergies Active Allergy Reactions Criticality Noted Date Comments Ondansetron Hives 10/19/2016 Piperacillin 01/05/2013 Hx that pt took cephalosporin in the past with no problem Piperacillin-Tazobactam In Dex 02/02/2023 Other reaction(s): throat swelling Shellfish Allergy Itching Low 07/27/2022 Other reaction(s): throat swells Medications Alcohol Swabs (SM Alcohol Prep) 70 % pads USE EVERY DAY 06/17/20 22 Active lidocaine-pril ocaine (Emla) 2.5-2.5 % cream Apply topically at bed time. 07/10/20 20 Active simethicone (Mylicon,Gas-X ) 180 MG capsule take one capsule up to every 6 hours PRN 04/07/20 22 Active FREESTYLE LITE test strip TEST BLOOD SUGAR TWICE DAILY 50 strip 11 12/07/19 23 Active TRUEplus Lancets 33G misc TEST BLOOD SUGAR TWICE DAILY 100 each 11 12/07/19 23 Active TRUEplus Lancets 33G misc TEST BLOOD SUGAR TWICE DAILY 11/12/19 23 Active metFORMIN, OSM, (Fortamet) 500 MG 24 hr tablet Take 1 tablet (500 mg) by mouth with evening meal. Do not crush, chew, or split. 30 tablet 3 05/01/20 23 Active cholecalcifero l (Vitamin D-3) 50 MCG (2000 UT) tablet Take 2,000 Units by mouth in the morning. 90 tablet 5 05/01/20 23 Active estradiol (Estrace) 0.1 MG/GM vaginal cream insert 1 g vaginally twice a week 42.5 g 3 05/23/20 23 Active Ferrous Sulfate (iron) 325 (65 Fe) MG tabletIndicati ons:Vitamin D deficiency,Iro n deficiency anemia due to chronic blood loss TAKE ONE TABLET TWICE DAILY 60 tablet 5 12/29/19 24 Active Ascorbic Acid (vitamin C) 250 MG tabletIndicati ons:Vitamin D deficiency,Iro n deficiency anemia due to chronic blood loss TAKE ONE TABLET DAILY 30 tablet 5 12/29/19 24 Active cetirizine (ZyrTEC) 5 MG tablet Take 5 mg by mouth Once per day. Active ibuprofen 400 MG tablet TAKE 1 TO 2 TABLETS BY MOUTH EVERY 8 HOURS WITH FOOD NEEDED FOR SORE THROAT 01/08/20 24 Active fluconazole (Diflucan) 150 MG tablet TAKE 1 TABLET BY MOUTH ONCE FOR 1 DOSE. MAY REPEAT IN 3 DAYS IF NEEDED 05/23/20 24 Active neomycin-polym yxin-dexAMETHa sone (Maxitrol) 3.5-91712-7.1 ophthalmic suspension INSTILL 1 DROP IN THE LEFT EYE THREE TIMES DAILY FOR ONE WEEK, THEN STOP. 06/24/20 24 Active clotrimazole (Lotrimin) 1 % vaginal creamIndicatio ns:Vulvovagina l Candidiasis Insert one applicator per vagina at bedtime for 7 nights 45 g 07/18/20 24 Active Additional Information Patient not taking.Reported on 07/22/2024 EPINEPHrine (EpiPen 2-Kenny) 0.3 MG/0.3ML injection syringeIndicat ions:Insect sting allergy, current reaction, accidental or unintentional, initial encounter Inject 0.3 mL (0.3 mg) as directed 1 (one) time if needed for anaphylaxis for up to 1 dose. Inject into upper leg. Call 911 after use. 1 each 09/05/19 25 Active EPINEPHrine (EpiPen 2-Kenny) 0.3 MG/0.3ML injection syringeIndicat ions:Insect bite of forearm, unspecified laterality, initial encounter,Inse ct sting allergy, current reaction, accidental or unintentional, initial encounter Inject 0.3 mL (0.3 mg) as directed 1 (one) time if needed for anaphylaxis for up to 1 dose. Inject into upper leg. Call 911 after use. 1 each 10/06/19 23 025 Discontinued(R eorder (will not trigger notification to Pharmacy)) Active Problems Problem Noted Date Diagnosed Date Breast pain, left 08/27/2024 Assessment & Plan (08/27/2024 2:36 PM EST): Breast pain in left lateral breast x2 weeks. Normal mammogram in 04/2024. -ordered repeat mammogram 08/27/24 -ordered US of left breast tissue 08/27/24 Vaginal candidiasis 07/18/2024 Assessment & Plan (07/18/2024 9:33 AM EST): -Wet prep with DAVID significant for budding yeast. -Candidiasis prevention discussed. -Sent UA and culture. -Sent BV panel. -ER precautions discussed. -prescribed Clortrimazole cream. Glaucoma suspect 03/06/2024 Musculoskeletal pain 01/08/2024 Assessment & Plan (01/08/2024 10:55 AM EDT): -likely muscle strain -start cyclobenzaprine 5 mg TID and ibuprofen 600 mg QID as needed -advised gentle massage with bengay and daily stretching -follow-up PCP if symptoms worsen or no improvement despite intervention Preseptal cellulitis 12/07/2023 Assessment & Plan (12/07/2023 4:16 PM EDT): There is concern for possible preseptal cellulitis, no concern for orbital infection. Hx of zozyn allergy ? But took cephalosporins in the past w no problems -px today cefuroxime 500 mg BID and Doxy x 7 days -warm compresses in eye ,states using cold in eye but not helping -alarm signs and symptoms discussed w pt and if no improvement in 72 h to return to [facility] or ED Elevated blood pressure reading 12/07/2023 Assessment & Plan (12/07/2023 4:16 PM EDT): Noted mild elevated BP today ,possible reactive to current infection -f BP w PCP in 6 weeks Gastroesophageal reflux disease 03/30/2023 Pelvic pain in female 03/30/2023 Straining during bowel movements 03/30/2023 Epigastric pain 03/30/2023 Dysuria 07/29/2022 Assessment & Plan (09/30/2023 8:10 PM EST): Urine dipstick today LE large nitrates neg Will hold using nitrofurantoin, med used mx times in recent months -UA w reflex to cx -px cephalexin 500 mg Q 12 h x 5 days ( pt has PNC allergy hx but confirmed today w her px that took in the past cephalosporins,pt denies problems w ATB ) -alarm signs and symptoms -tylenol -holding pyriudm w possible reaction w zosyn allergy per interaction message in system -if Ucx is neg may need to be consider for urologist eval for recurrent symptoms of dysuria to eval for non infectious cystitis -has apt w PCP this month Assessment & Plan (07/29/2022 8:56 AM EST): + suprapubic pain and symptoms, will treat w/ nitrofuratoin and f/u culture results Acute vaginitis 07/27/2022 Assessment & Plan (03/30/2023 9:13 AM EDT): Acute on chronic symptoms. Evidence of atrophy on exam. There are a few budding yeast on wet mount. Pt is pre-diabetic. Will treat with clotrimazole. Restart vaginal estrogen. Will send UA, BV swabs, and GC chlamydia. Assessment & Plan (07/29/2022 8:56 AM EST): Patient reports she has a lot of itchiness similar to past episodes of fungal infection, will send treatment per her request, but followup with sureswab results. Cystitis 07/27/2022 Assessment & Plan (03/28/2024 9:46 AM EDT): Seems likely symptoms are are associated to possible interstitial cystitis as mx neg ucx in the past -hb1AC 02/2024 5.9 -Ucx 09/2023 > 100,000 Urine Culture Mixed bacterial jesus characteristic of Urine Culture urogenital contamination. -mx neg urine cx in the past -Urine dipstick today : Gl 250, nitrates neg, LE trace -holding pyriudm w possible reaction w zosyn allergy per interaction message in system -send for UA w reflex cx -will call pt w results -tylenol prn -hydration -Advised pt to use E2 cream, D mannose 500 mg cap daily and vit C --to get D mannose at [employer] or [employer] -confirmed w px they dont have it ,if no better advised pt to f up w urologist for chronic cystitis Increased frequency of urination 07/27/2022 Knee pain 01/09/2018 Moderate anxiety 10/19/2016 Vitamin D deficiency 03/14/2016 Encounters Date Type Department Care Team Description 09/05/2024 9:00 AM EST Office Visit [facility] [address] [place] [address] Rina Solorio MD Atrophic vaginitis (Primary Dx); Type 2 diabetes mellitus without complication, without long-term current use of insulin ([facility]); Dietary counseling; Exercise counseling; Acute vaginitis; Insect sting allergy, current reaction, accidental or unintentional, initial encounter; Breast pain, left 09/05/2024 Travel 09/04/2024 Telephone [facility] [address] [place] [address] Rina Solorio MD Chart Prep 08/27/2024 2:40 PM EST Office Visit [facility] [address] [place] [phone] Misty Krishna MD Breast pain, left (Primary Dx) 08/27/2024 9:00 AM EST Office Visit [facility] [address] [place] [address] Aminta Chicas, JEFF 08/10/2024 12:20 PM EST Office Visit [facility] [address] [place] [phone] Modesto Adrian MD Viral URI 08/06/2024 8:00 AM EST Office Visit [facility] [address] [place] [address] Aminta Chicas, JEFF 07/22/2024 8:00 AM EST Office Visit [facility] [address] [place] [address] Kayley Ortiz 07/19/2024 Telephone [facility] [address] [place] [phone] Delmi Villa RN Results 07/19/2024 Orders Only [facility] [address] [place] [phone] Misty Krishna MD Dysuria (Primary Dx) 07/18/2024 8:40 AM EST Office Visit [facility] [address] [place] [phone] Misty Krishna MD Vaginal candidiasis (Primary Dx) 07/18/2024 Orders Only [facility] [address] [place] [phone] Misty Krishna MD 07/01/2024 8:40 AM EST Office Visit [facility] [address] [address] Marilu Farmer MD Preseptal cellulitis of left eye (Primary Dx) 06/15/2024 11:20 AM EST Office Visit [facility] [address] [address] Modesto Adrian MD Acute cystitis without hematuria from Last 3 Months Immunizations Name Administration Dates Next Due Influenza injectable quadriv alent IIV4 with preservative 05/09/2018 Influenza injectable quadriv alent preservative free 06/17/2021,06/17/2021,05/14/2020 Influenza, IIV3, injectable 07/17/2007 Influenza, seasonal, injecta ble, preservative free 10/14/2016 Moderna Covid-19 Vaccine 12+ 10/19/2020 Tdap 08/26/2014 Zoster, Recombinant 06/02/2020,04/02/2020 Family History Medical History Relation Name Comments Throat cancer Mother's Sister Relation Name Status Comments Mother's Sister Social History Tobacco Use Types Packs/Day Years Used Date Smoking Tobacco: Never Passive Smoke Exposure: Never Smokeless Tobacco: Never Tobacco Cessation:Counseling Given: Not Answered Alcohol Use Standard Drinks/Week Comments Never 0 [...] not to disclose 2021 10:22 AM EDT Last Filed Vital Signs Vital Sign Reading [...] Mass Index 27.21 09/05/2024 9:03 AM EST Plan of Treatment Upcoming Encounters Date Type Department Care Team (Late st Contact Info) Description 09/06/2024 11:30 AM EST Office Visit [facility] [address] [place], [place] [phone] Aminta Chicas, DMD [address] [facility] [place] [address] Health Maintenance Due Date Last Done Comments CT Colonography 1965 Depression Screening 1965 FIT DNA/Cologuard 1965 FIT 1965 FOBT 1965 Sigmoidoscopy 1965 Diabetes: Foot Exam 1975 Eye Exam 1975 Alcohol/Substance Use Screening 1977 Hepatitis B Vaccines (1 of 3 - 19+ 3-dose series) 1984 Pneumococcal Vaccine: 50+ Years (1 of 2 - PCV) 1984 Diabetes: Urine Protein Screening 04/02/2021 04/02/2020, 10/03/2019 Lipid Panel 08/11/2021 08/11/2020, 10/0 04/2020, 04/02/2020 COVID-19 Vaccine ( season) 2024 11/17/2021, 06/17/2021, 11/16/2020, Additional history exists Influenza Vaccine (#1) 2024 , 06/17/2021, 05/14/2020, Additional history exists DTaP/Tdap/Td Vaccines (2 - Td or Tdap) 08/26/2024 08/26/2014 Dental Oral Exam 01/21/2025 07/22/2024, , 09/11/2018, Additional history exists Dental Prophylaxis 01/21/2025 07/22/2024, 0 12/28/2021, 04/18/2019, Additional history exists Pap Smear 03/01/2025 03/01/2022 Diabetes: Hemoglobin A1C 03/05/2025 025, 03/06/2024, 10/05/2023, Additional history exists SDOH Screening 03/06/2025 03/06/2024 Tobacco Screening 08/27/2025 08/27/2024 Dental X-Ray: Bitewings 08/28/2025 08/27/19 25, 07/22/2024, 12/28/2021, Additional history exists Colonoscopy 12/16/2025 12/17/2015 Colorectal Cancer Screening 12/16/2025 Mammogram 04/27/2026 04/27/2024 Cervical Cancer Screening 03/01/2027 HPV/Cotest 03/01/2027 03/01/2022 Dental X-Ray: Full Mouth 07/23/2027 024, 09/11/2018, 06/10/2015 RSV Patients and Patients Aged 60 years or older (1 - 1-dose 75+ series) 2040 HIV Screening Completed 10/03/2019 Hepatitis C Screening Completed 10/03/2019 Zoster Vaccines Completed 06/02/2020, 04/02/2020 HIB Vaccines Aged Out No longer eligi [...] patient's age to complete this topic Meningococcal Vaccine Aged Out No valentino roland eligible based on patient's age to complete this topic RSV under 20 months Aged Out No longe r eligible based on patient's age to complete this topic Rotavirus Vaccines Aged Out No longer eligible based on patient's age to complete this topic Procedures Procedure Name Priority Date/Time Associated Diagnosis Comments POCT GLYCATED HEMOGLOBIN, TOTAL Routine 09/05/2024 10:12 AM EST Type 2 diabetes mellitus without complication, without long-term current use of insulin (CMS/HCC) POCT URINALYSIS DIPSTICK Routine 09/05/2024 10:11 AM EST Acute vaginitis POCT GLUCOSE Routine 09/05/2024 9:04 AM EST Type 2 diabetes mellitus without complication, without long-term current use of insulin (CMS/HCC) BITEWING - SINGLE RADIOGRAPHIC IMAGE Routine 08/27/2024 9:00 AM EST ADJUNCTIVE GENERAL SERVICES - PROFESSIONAL VISITS - CASE PRESENTATION, SUBSEQUENT TO DETAILED AND EXTENSIVE TREATMENT PLANNING Routine 08/27/2024 9:00 AM EST 2 DO RESTORATIVE - RESIN-BASED COMPOSITE RESTORATIONS - DIRECT - RESIN-BASED COMPOSITE - TWO SURFACES, POSTERIOR Routine 08/27/2024 9:00 AM EST POCT COVID-19 AG ANDERSON ID NOW Routine [...] Routine 08/10/2024 10:00 AM EST Viral URI ADJUNCTIVE GENERAL SERVICES - PROFESSIONAL VISITS - CASE PRESENTATION, SUBSEQUENT TO DETAILED AND EXTENSIVE TREATMENT PLANNING Routine 08/06/2024 8:00 AM EST 31 DO RESTORATIVE - RESIN-BASED COMPOSITE RESTORATIONS - DIRECT - RESIN-BASED COMPOSITE - TWO SURFACES, POSTERIOR Routine 08/06/2024 8:00 AM EST COMPREHENSIVE ORAL EVALUATION - NEW OR ESTABLISHED PATIENT Routine 07/22/2024 8:00 AM EST DIAGNOSTIC - DIAGNOSTIC IMAGING - INTRAORAL - COMPREHENSIVE SERIES OF RADIOGRAPHIC IMAGES Routine 07/22/2024 8:00 AM EST ORAL HYGIENE INSTRUCTIONS Routine 07/22/2024 8:00 AM EST ADJUNCTIVE GENERAL SERVICES - PROFESSIONAL VISITS - CASE PRESENTATION, SUBSEQUENT TO DETAILED AND EXTENSIVE TREATMENT PLANNING Routine 07/22/2024 8:00 AM EST PROPHYLAXIS - ADULT Routine 07/22/2024 8 :00 AM EST POCT URINALYSIS DIPSTICK Routine 07/18/2024 9:47 AM EST Vaginal candidiasis URINALYSIS, COMPLETE, WITH REFLEX TO CULTURE Routine 07/18/2024 9:33 AM EST Vaginal candidiasis CULTURE, URINE, ROUTINE Routine 07/18/2024 9:33 AM EST BACTERIAL VAGINOSIS PANEL Routine 07/18/2024 9:33 AM EST Vaginal candidiasis POCT URINALYSIS DIPSTICK Routine 06/15/2024 10:38 AM EST Acute cystitis without hematuria CULTURE, URINE, ROUTINE Routine 06/15/2024 12:00 AM EST Acute cystitis without hematuria MAMMOGRAPHY Routine 04/27/2024 4:21 PM EDT THINPREP IMAGING PAP AND HPV MRNA E6/E7 WITH REFLEX TO HPV 16,18/45 Routine 03/01/2022 11:03 AM EDT LIPID PANEL, STANDARD Routine 08/11/2020 8:07 AM EST ALBUMIN, RANDOM URINE W/CREATININE Routine 04/02/2020 8:42 AM EDT [facility] HISTORICAL HEPATITIS C ANTIBODY RFLX Routine 10/03/2019 10:32 AM EST [facility] HISTORICAL HIV AB/AG Routine 10/03/2019 10:32 AM EST COLONOSCOPY Routine 12/17/2015 from Last 3 Months or Most Recently Relevant to Health Maintenance Results * (ABNORMAL) POCT A1C (09/05/2024 10:12 AM EST) Hemoglobin A1C 6.3(A) 4.0 - 6.0 % QC Media Lot # [id number] Lot# Expiration Date [id number] Blood 09/05/2024 10:1 2 AM EST Rina Solorio MD POINT OF CARE TEST ENTER/EDIT ORDERABLES Final Result * POCT Urinalysis (09/05/2024 10:11 AM EST) Only the most recent of3 resultswithin the time period is included. Color, UA Yellow Clarity, UA Clear Glucose, [...] 33,125 Urine 09/05/2024 10:1 1 AM EST Rina Solorio MD POINT OF CARE TEST ENTER/EDIT ORDERABLES Final Result * POCT glucose manually resulted (09/05/2024 9:04 AM EST) Glucose Blood, POC 121 60 - 200 mg/dL QC Media Lot # Comment:[id number] Lot# Expiration Date Comment:11/12/2024 Blood Capillary blood specimen / Unknown 09/05/2024 9:04 AM EST Rina Solorio MD POINT OF CARE TEST ENTER/EDIT ORDERABLES Final Result * POCT Rapid Covid-19 ANDERSON ID NOW (08/10/2024 10:50 AM EST) Coronavirus Antigen PCR Negative Negative, Indeterminate, None Detected, Invalid, Specimen unsatisfactory for evaluation, Weakly Positive QC Media Lot # [id number] Lot# Expiration Date [id number] Swab 08/10/2024 10:5 0 AM EST Modesto Adrian MD POINT OF CARE TEST ENTER/EDIT OR DERABLES Final Result * POCT Rapid Influenza A ANDERSON ID NOW (08/10/2024 10:49 AM EST) Influenza A Negative Negative, Indeterminate [facility] QC Media Lot # [id number] [facility] Lot# Expiration Date [id number] [facility] Swab 08/10/2024 10:4 9 AM EST Modesto Adrian MD POINT OF CARE TEST ENTER/EDIT OR DERABLES Final Result [facility] [address] [place] [phone] * POCT Rapid Strep A ANDERSON ID NOW (08/10/2024 10:49 AM EST) [facility] Rapid Strep A Screen Negative Negative, None Detected QC Media Lot # [id number] Lot# Expiration Date ,026 Swab 08/10/2024 10:4 9 AM EST Modesto Adrian MD POINT OF CARE TEST ENTER/EDIT OR DERABLES Final Result * POCT Rapid Influenza B ANDERSON ID NOW (08/10/2024 10:48 AM EST) [facility] Influenza B Negative Negative, Indeterminate [facility] QC Media Lot # [id number] [facility] Lot# Expiration Date , [facility] Swab 08/10/2024 10:4 8 AM EST Modesto Adrian MD POINT OF CARE TEST ENTER/EDIT OR DERABLES Final Result [facility] [address] [place] [phone] * Respiratory Viral Panel PCR (08/10/2024 10:00 AM EST) [facility] Adenovirus PCR Not Detected Not Detect. [facility] Bordetella pertussis PCR Not Detected Not Detect. [facility] Comment:Interpret results wi th caution. If B. pertussis isspecifically suspected, additional testing using analternate method is recommended. Bordetella parapertussis PCR Not Detected Not Detect. [facility] Chlamydia pneumoniae PCR Not Detected Not Detect. [facility] Coronavirus 229E PCR Not Detected Not Detect. [facility] Coronavirus HKU1 PCR Not Detected Not Detect. [facility] Coronavirus NL63 PCR Not Detected Not Detect. [facility] Coronavirus OC43 PCR Not Detected Not Detect. [facility] SARS-CoV-2 PCR Not Detected Not Detect. [facility] Comment:SARS-CoV-2 not detec eun by real-time RT-PCR.Note: If clinical suspicion for Sars-CoV-2 is high, continueto maintain precautions and consider repeat testing.Test results should be interpreted in the context ofclinical findings and other laboratory data.Rare polymorphisms exist that could lead to false-negativeor false-positive results. If results do not match theclinical findings, additional testing should be considered.Results reported to [facility].This test has been authorized by the FDA under the EmergencyUse Authorization (EUA) for use by authorized laboratories. Influenza A PCR Not Detected Not Detect. [facility] Influenza B PCR Not Detected Not Detect. [facility] Human metapneumovirus PCR Not Detected Not Detect. [facility] Rhino/Enterovirus PCR Not Detected Not Detect. [facility] Mycoplasma pneumoniae PCR Not Detected Not Detect. [facility] Parainfluenza 1 PCR Not Detected Not Detect. [facility] Parainfluenza 2 PCR Not Detected Not Detect. [facility] Parainfluenza 3 PCR Not Detected Not Detect. [facility] Parainfluenza 4 PCR Not Detected Not Detect. [facility] RSV PCR Not Detected Not Detect. [facility] Resp Panel NA Note See Note H [facility] Comment:All results must be correlated [...] assay is performed by Multiplexed PCR, utilizing [employer] Film Array. 08/10/2024 10:0 0 AM EST 08/10/2024 2:14 PM EST Modesto Adrian MD LAB BLOOD ORDERABLES Final Resul t Performing Organization Address City/[facility]/ZIP Co de Phone Number [facility] [address] [place] [phone] [phone] * Bacterial Vaginosis Panel (07/18/2024 9:33 AM EST) TRICHOMONAS VAGINALIS DETECTION BY PCR NOT DETECTED Not Detect [facility] BACTERIAL VAGINOSIS DETECTION BY PCR NEGATIVE Negative [facility] Comment:The BV organism targ ets of the Xpert Xpress MVP test can becommensal in women; Xpert Xpress MVP positive results forbacterial vaginosis should be considered in conjunction withother clinical and patient information to determine thedisease status. Organisms that are not detected by the XpertXpress MVP test have also been reported to be associatedwith BV and aerobic vaginitis.The Xpert Xpress MVP test performance has not been evaluatedin patients under the age of 14. MAYDA GROUP DETECTION BY PCR NOT DETECTED Not Detect [facility] Mayda glab krusei PCR NOT DETECTED Not Detect [facility] Swab Vaginal structure / Unknown 07/18/2024 9:33 AM EST 07/18/2024 6:21 PM EST Misty Krishna MD LAB MICROBIOLOGY - GENERAL ORDERABLES Final Result Performing Organization Address City/[facility]/ZIP Co de Phone Number [facility] [address] [place] [address] [phone] * (ABNORMAL) Urinalysis, Complete, with Reflex to Culture (07/18/2024 9:33 AM EST) Color Urine Yellow [facility] Appearance Urine Cloudy [facility] PH 6.0 5.0 - 9.0 [facility] Glucose Urine UA Negative Negative mg/dL [facility] Urine Blood Negative Negative [facility] Specific [place] - Urine 1.010 1.005 - 1.025 [facility] Urine Protein Negative Neg-Trace mg/dL [facility] Urine Ketones Negative Negative mg/dL [facility] Nitrite Urine Negative Negative [facility] Leukocyte Esterase Urine Large (3+)(A) Negative [facility] RBC Urine 0-2 0 - 2 /HPF [facility] Urine WBC 21-50(A) 0 - 5 /HPF [facility] Urine Squamous Epithelial Cell 6-10 0 - 2 /HPF [facility] Urine Bacteria Trace None Seen [facility] Hyaline Casts, Urine 0-2 0 - 2 /LPF [facility] Urine 07/18/2024 9:33 AM EST 07/18/2024 6:21 PM EST Narrative [facility] - 07/18/2024 7:07 PM EST Urine, Clean Catch Misty Krishna MD LAB URINE ORDERABLES Final Result Performing Organization Address [facility] Co de Phone Number [facility] [address] [place] [phone] * Culture, Urine, Routine (07/18/2024 9:33 AM EST) Only the most recent of2 resultswithin the time period is included. Urine Urine specimen obtained by clean catch procedure / Unknown 07/18/2024 9:33 AM EST 07/18/2024 7:08 PM EST Comment:UACC Narrative [facility] - 07/19/2024 3:25 PM EST Strep agalactiae (Grp B) Quant > 100,000 cfu/mL Susc N/A Susceptibility not routinely performed on this isolate. Specimen Source: Urine clean catch Misty Krishna MD LAB MICROBIOLOGY - GENERAL ORDERABLES Final Result Performing Organization Address [facility] Co de Phone Number [facility] [address] [place] [phone] * Hm Mammography (04/27/2024 4:21 PM EDT) Anatomical Region Laterality Modality Other Historical Provider HEALTH MAINTENANCE Final Result * THINPREP TIS PAP AND HPV mRNA E6/E7 WITH REFLEX TO HPV 16,18/45 (03/01/2022 11:03 AM EDT) Clinical Information: Postmenopausal [facility] COMMENT SEE COMMENT [facility] Comment: EXPLANATORY NOTE: ? The Pap is a screening test for cervical cancer. It is ?? not a diagnostic test and is subject to false negative ?? and false positive results. It is most reliable when a ?? satisfactory sample, regularly obtained, is submitted ?? with relevant clinical findings and history, and when ?? the Pap result is evaluated along with historic and ?? current clinical information. ?? COMMENT: This Pap test has been evaluated with computer assisted technology. [facility] Cytotechnologis t: SEE COMMENT [facility] Comment: CMG, CT(ASCP) CT screening location: [address] ??[address] HPV nRNA E6/E7 Not Detected Not Detected [facility] Comment: Methodology: Gel Coat Sprayer-Mediated Amplification This assay detects E6/E7 viral messenger RNA (mRNA) from 14 high-risk HPV types (16,18,31,33,35,39,45,51,52,56,58,59,66,68). ? Cervical sources are required for HPV testing. If a vaginal source from a patient who has had a total hysterectomy with removal of cervix was ?? submitted, please contact the testing laboratory for alternative testing options. ?? For additional information, please refer to http://education.Offsite Care Resources/faq/CHD559q7 (This link if provided for information/ educational purposes only.) Interpretation/ Result: Negative for intraepithelial lesion or malignancy. [facility] LMP: PM [facility] Prev. BX: NONE [facility] Prev. PAP: NONE [facility] SOURCE: Cervix [facility] Statement Of Adequacy: SEE COMMENT [facility] Comment: Satisfactory for evaluation. Endocervical/transformation zone component present. 03/01/2022 11:0 3 AM EDT us Hannah Leyva CNM LAB PATHOLOGY ORDERABLES Final Result [facility] [address] * (ABNORMAL) LIPID PANEL, STANDARD (08/11/2020 8:07 AM EST) Chol/HDLC Ratio 3.6 <5.0 (calc) [facility] Cholesterol, Total 166 <200 mg/dL [facility] HDL Cholesterol 46(L) > OR = 50 mg/dL [facility] LDL Cholesterol 101(H) mg/dL (calc) [facility] Comment: Reference range: <100 ?? Desirable range <100 mg/dL for primary prevention; ?? <70 mg/dL for patients with CHD or diabetic patients ?? with > or = 2 CHD risk factors. ?? LDL-C is now calculated using the Sebastien-Foreman ?? calculation, which is a validated novel method providing ?? better accuracy than the Friedewald equation in the ?? estimation of LDL-C. ?? Sebastien PATEL et al. SCARLETT. 2013;310(19): 5168-2209 ?? (http://education.C3Nano/faq/OPS853) Non-HDL Cholesterol 120 <130 mg/dL (calc) [facility] Comment: For patients with diabetes plus 1 major ASCVD risk ?? factor, treating to a non-HDL-C goal of <100 mg/dL ?? (LDL-C of <70 mg/dL) is considered a therapeutic ?? option. Triglycerides 95 <150 mg/dL [facility] 08/11/2020 8:07 AM EST Rina Solorio MD LAB BLOOD ORDERABLES Final Re sult [facility] [address] [place] [address], * ALBUMIN, RANDOM URINE W/CREATININE (04/02/2020 8:42 AM EDT) Microalbumin Urine 0.5 See Note: mg/dL [facility] Comment: Reference Range: ?? Reference Range Not established Microalb/Creat Ratio 6 <30 mcg/mg creat [facility] Comment: ?? The ADA defines abnormalities in albumin excretion as follows: ?? Category ? Result (mcg/mg creatinine) ?? Normal ?<30 Microalbuminuria ? 30-299 ?? Clinical albuminuria ?? > OR = 300 ?? The ADA recommends that at least two of three specimens collected within a 3-6 month period be abnormal before considering a patient to be within a diagnostic category. Creatinine, Urine 84 20 - 275 mg/dL [facility] 04/02/2020 8:4 2 AM EDT Rina Solorio MD LAB URINE ORDERABLES Final Re sult Performing Organization Address [facility] Phone Number [facility] * HEPATITIS C ANTIBODY RFLX (10/03/2019 10:32 AM EST) HEPATITIS C ANTIBODY NONREACTIVE NONREACTIVE [facility] Comment: Antibodies to HCV not detected; does not exclude early acute HCV infection. 10/03/2019 10:3 2 AM EST Historical Provider HISTORICAL/NON ORDERABLE LABS Final Result Performing Organization Address [facility] [address] * HIV AB/AG (10/03/2019 10:32 AM EST) HIV AG/AB NONREACTIVE NR [facility] Comment: HIV-1 p24 Ag and/or HIV-1/HIV-2 Ab not detected. ?? A test result that is nonreactive does not exclude the possibility of exposure to or infection with HIV-1 and/or HIV-2. Nonreactive results in this assay for individuals with prior exposure to HIV-1 and/or HIV-2 may be due to antigen and antibody levels that are below the limit of detection of this assay. ?? The [employer] [facility] [employer] HIV Ag/Ab Combo assay result and supplemental assay results should be interpreted in conjunction with the patient's clinical presentation, history and other laboratory results. ??If the results are inconsistent with clinical evidence, additional testing is suggested to confirm the result. 10/03/2019 10:3 2 AM EST Historical Provider HISTORICAL/NON ORDERABLE LABS Final Result [facility] [address] * Colonoscopy (12/17/2015) Colonoscopy Normal Normal Narrative Kendal Hollins - 12/17/2015 Recommended 10 year follow up us Historical Provider HEALTH MAINTENANCE Final Result from Last 3 Months or Most Recently Relevant to Health Maintenance Insurance [id number] MEDICAID STAND ADULT Care Teams Crumb Packer Relationship Specialty Start Date End Date Rina Solorio MD [address] [place] [id number] PCP - General Family Medicine 12/15/15
--- OUTSIDE RECORDS SUMMARY | 2024-09-05 18:29 | XMS_ITS | Encounter Summary ---
Author Organization [employer] [facility] Address [address] [place] [address] Care Team Providers Care Communications Administrator Name Role Phone Rina Solorio MD Primary Care Provider [phone] Encounter Details Date Type Department Care Team (Late Contact Info) Description 06/13/2023 Abstract [facility] MEDICINE [address] [place], [place] [id number] Kendal Hollins Social History Tobacco Use Types Packs/Day Years Used Date Smoking Tobacco: Never Passive Smoke Exposure: Never Smokeless Tobacco: Never Alcohol Use Standard Drinks/Week Comments Never 0 (1 standard drink = 0.6 oz pur e alcohol) Comments No Sex and Gender Information Value [...] Description 09/06/2024 11:30 AM EST Office Visit [facility] ADULT DENTAL [address] [place], [place] [phone] Aminta Chicas, JEFF [address] [place], [place] [phone] documented as of this encounter Procedures Procedure Name Priority Date/Time Associated Diagnosis Comments COLONOSCOPY Routine 12/17/2015 documented in this encounter Results * Colonoscopy (12/17/2015) Colonoscopy Normal Normal Narrative Kendal Hollins - 12/17/2015 Recommended 10 year follow up us Historical Provider HEALTH MAINTENANCE Final Result documented in this encounter Visit Diagnoses Not on filedocumented in this encounter Care Teams Communications Administrator Relationship Specialty Start Date End Date Rina Solorio MD [address] [place] [id number] PCP - General Family Medicine 12/15/15 documented as of this encounter
[2024-09-06 10:46] LABS: Bacterial Vaginosis PCR NEGATIVE (Negative); Candida Group PCR NOT DETECTED (Not Detect); Candida glab krusei PCR NOT DETECTED (Not Detect); Trichomonas vaginalis PCR NOT DETECTED (Not Detect)
== END 2024-09-05 14:33 | disposition home or self-care (01) ==
LOC: HO.CHCLNP 14:32
PROVIDERS: Visit Provider Pediatrics
DX: N76.0 Acute vaginitis (principal)
CPT/HCPCS: 81515

== ENCOUNTER 2024-09-06 08:06 | Outpatient (REF) | payer MEDICAID, SELFPAY ==
--- OUTSIDE RECORDS SUMMARY | 2024-09-06 08:10 | XMS_ITS | Encounter Summary ---
Author Organization [employer] Address [address] [facility] [address] [place] [address] Care Team Providers Care Gis Scientist Name Role Phone Rina Solorio MD Primary Care Provider [phone] Reason for Visit * Reason Comments Filling Encounter Details Date Type Department Care Team ([facility] Contact Info) Description 08/06/2024 8:00 AM EST Office Visit [facility] ADULT DENTAL [address] [place], [place] [phone] Aminta Chicas DMD [address] [place], [place] [phone] Social History Tobacco Use Types Packs/Day Years [...] t he electric, gas, oil or water [employer] threatened to shut off services in your [...] y.o. female. Time Out: Date: 08/06/2024 Location: [facility] Tooth: #31 Procedure: [facility] Verified the above with patient, dyer assistant, and provider. Confirmed via patient's chart, intraorally and by radiographs. Light Armored Vehicle Officer: Yes. Language: Dutch. Light Armored Vehicle Officer's Name: Ani Osman Composite yazdanism done on #[address] Aminta [...] carpule 2% lidocaine 1:100,000 epinephrine - Existing yazdanism and recurrent decay removed - Matrix band used as needed - Desensitizer: GLUMA - Etching done using 37% phosphoric acid and rinsed. - airline customer service agent applied and light cured. - Composite yazdanism done using Filtek body and flowable composite, shade A3.5 - Anatomy and margins adjusted. - Occlusion checked with articulating paper. - Necessary reductions made. - [facility] smoothed and polished. - Post op instructions given. - Patient made aware possible post op sensitivity. All patient questions answered. Patient comfortable upon dismissal. NV: Restorations Provider: Dr. Aminta Chicas DMD Counsel: Ani Osman Supervising Dentist: Dr. Gm Petersen [...] 09/06/2024 11:30 AM EST Office Visit [facility] ADULT DENTAL [address] [place] [address] Aminta Chicas DMD [address] [place] [address] documented as of this encounter Procedures Procedure [...] on filedocumented in this encounter Care Teams Gis Scientist Relationship Specialty Start Date End Date Rina Solorio MD [address] [place] [address] PCP - General Family Medicine 12/15/15 documented as of this encounter
--- OUTSIDE RECORDS SUMMARY | 2024-09-06 08:10 | XMS_ITS | Encounter Summary ---
Author Organization [employer] Address [address] [facility] [address] [place] [address] Care Team Providers Care Barrel Rifler Button Name Role Phone Rina Solroio MD Primary Care Provider [phone] Encounter Details Date Type Department Care Team [...] Upcoming Encounters Date Type Department Care Team ([facility] st Contact Info) Description 09/06/2024 11:30 AM EST Office Visit [facility] ADULT DENTAL [address] [place] [address] Aminta Chicas, DMD [address] [place] [address] documented as of this encounter Visit Diagnoses Not on filedocumented in this encounter Care Teams Barrel Rifler Button Relationship Specialty Start Date End Date Rina Solorio MD [address] [place] [address] PCP - General Family Medicine 12/15/15 documented as of this encounter
--- OUTSIDE RECORDS SUMMARY | 2024-09-06 08:10 | XMS_ITS | Encounter Summary ---
Author Organization [employer] Address [address] [facility] [address] [place] [address] Care Team Providers Care Turning Sander Tender Name Role Phone Rina Solorio MD Primary Care Provider [phone] Reason for Visit * Reason Onset Date Comments Chart Prep 09/04/2024 Encounter Details Date Type Department Care Team ([facility] Contact Info) Description 09/04/2024 Telephone [facility] CH[facility] MED & PEDS [address] [place], [place] [phone] Rina Solorio MD [address] [place] [address] Chart Prep Social History Tobacco Use Types [...] Description 09/06/2024 11:30 AM EST Office Visit [facility] CHC ADULT DENTAL [address] [place] [address] Aminta Chicas, JEFF [address] [place] [address] documented as of this encounter Visit Diagnoses Not on filedocumented in this encounter Care Teams Turning Sander Tender Relationship Specialty Start Date End Date Rina Solorio MD [address] [place] [address] PCP - General Family Medicine 12/15/15 documented as of this encounter
--- OUTSIDE RECORDS SUMMARY | 2024-09-06 08:10 | XMS_ITS | Clinical Summary ---
Author Organization [employer] Address 75 [facility] 7t [place] [address] Care Team Providers Care Geographic Area Intelligence Officer Name Role Phone Rina Solorio MD Primary Care Provider [phone] Allergies Active Allergy Reactions Criticality Noted Date [...] 05/23/20 24 Active neomycin-polym yxin-dexAMETHa sone (Maxitrol) 3.5-71221-2.1 ophthalmic suspension INSTILL 1 DROP IN THE [...] vit C --to get D mannose at [facility] or [employer] -confirmed w px they dont have it ,if no better advised pt to f up w urologist for chronic cystitis Increased frequency of urination 07/27/2022 Knee pain 01/09/2018 Moderate anxiety 10/19/2016 Vitamin D deficiency 03/14/2016 Encounters Date Type Department Care Team Description 09/05/2024 9:00 AM EST Office Visit [facility] [address] [place] [address] Rina Solorio MD Atrophic vaginitis (Primary Dx); Type 2 diabetes mellitus without complication, without long-term current use of insulin ([facility]); Dietary counseling; Exercise counseling; Acute vaginitis; Insect sting allergy, current reaction, accidental or unintentional, initial encounter; Breast pain, left 09/05/2024 Travel 09/04/2024 Telephone [facility] [address] [place] [address] Rina Solorio MD Chart Prep 08/27/2024 2:40 PM EST Office Visit [facility] [address] [place] [address] Misty Krishna MD Breast pain, left (Primary Dx) 08/27/2024 9:00 AM EST Office Visit [facility] [address] [place] [address] Aminta Chicas, JEFF 08/10/2024 12:20 PM EST Office Visit [facility] [address] [place] [address] Modesto Adrian MD Viral URI 08/06/2024 8:00 AM EST Office Visit [facility] [address] [place] [address] Aminta Chicas, JEFF 07/22/2024 8:00 AM EST Office Visit [facility] [address] [place] [address] Kayley Ortiz 07/19/[address] [facility] [address] [place] [address] Delmi Villa RN Results 07/19/2024 Orders Only [facility] [address] [place] [address] Misty Krishna MD Dysuria (Primary Dx) 07/18/2024 8:40 AM EST Office Visit [facility] [address] [place] [address] Misty Krishna MD Vaginal candidiasis (Primary Dx) 07/18/2024 Orders Only [facility] [address] [place] [address] Misty Krishna MD 07/01/2024 8:40 AM EST Office Visit [facility] [address] [address] Marilu Farmer MD Preseptal cellulitis of left eye (Primary Dx) 06/15/2024 11:20 AM EST [facility] [address] [address] Modesto Adrian MD Acute cystitis without hematuria [...] Description 09/06/2024 11:30 AM EST Office Visit [facility] [address] [place], [place] [phone] Aminta Chicas, DMD [address] [facility] MARISSA MICHAUD [address] Health Maintenance Due Date Last Done Comments [...] URINE W/CREATININE Routine 04/02/2020 8:42 AM EDT [facility] HISTORICAL HEPATITIS C ANTIBODY RFLX Routine 10/03/2019 10:32 AM EST [facility] HISTORICAL HIV AB/AG Routine 10/03/2019 10:32 AM [...] - 200 mg/dL QC Media Lot # Comment:[id number] Lot# Expiration Date Comment:11/12/2024 Blood Capillary blood specimen / Unknown 09/05/2024 9:04 AM EST Rina Solorio MD POINT OF CARE TEST ENTER/EDIT ORDERABLES Final Result * POCT Rapid Covid-19 ANDERSON ID NOW (08/10/2024 10:50 AM EST) Coronavirus Antigen PCR Negative Negative, Indeterminate, None Detected, Invalid, Specimen unsatisfactory for evaluation, Weakly Positive QC Media Lot # [id number] Lot# Expiration Date [id number] Swab 08/10/2024 10:5 0 AM EST Modesto Adrian MD POINT OF CARE TEST ENTER/EDIT OR DERABLES Final Result * POCT Rapid Influenza A ANDERSON ID NOW (08/10/2024 10:49 AM EST) Influenza A Negative Negative, Indeterminate [facility] QC Media Lot # [id number] [facility] Lot# Expiration Date [id number] [facility] Swab 08/10/2024 10:4 9 AM EST Modesto Adrian MD POINT OF CARE TEST ENTER/EDIT OR DERABLES Final Result [facility] [address] [place] [phone] * POCT Rapid Strep A ANDERSON ID NOW (08/10/2024 10:49 AM EST) [facility] Rapid Strep A Screen Negative Negative, None Detected QC Media Lot # [id number] Lot# Expiration Date ,026 Swab 08/10/2024 10:4 9 AM EST Modesto Adrian MD POINT OF CARE TEST ENTER/EDIT OR DERABLES Final Result * POCT Rapid Influenza B ANDERSON ID NOW (08/10/2024 10:48 AM EST) [facility] Influenza B Negative Negative, Indeterminate [facility] QC Media Lot # [id number] [facility] Lot# Expiration Date , [facility] Swab 08/10/2024 10:4 8 AM EST Modesto Adrian MD POINT OF CARE TEST ENTER/EDIT OR DERABLES Final Result [facility] [address] [place] [phone] * Respiratory Viral Panel PCR (08/10/2024 10:00 AM EST) [facility] Adenovirus PCR Not Detected Not Detect. [facility] Bordetella pertussis PCR Not Detected Not Detect. [facility] Comment:Interpret results wi th caution. If B. pertussis isspecifically suspected, additional testing using analternate method is recommended. Bordetella parapertussis PCR Not Detected Not Detect. [facility] Chlamydia pneumoniae PCR Not Detected Not Detect. [facility] Coronavirus 229E PCR Not Detected Not Detect. [facility] Coronavirus HKU1 PCR Not Detected Not Detect. [facility] Coronavirus NL63 PCR Not Detected Not Detect. [facility] Coronavirus OC43 PCR Not Detected Not Detect. [facility] SARS-CoV-2 PCR Not Detected Not Detect. [facility] Comment:SARS-CoV-2 not detec eun by real-time RT-PCR.Note: If clinical suspicion for Sars-CoV-2 is high, continueto maintain precautions and consider repeat testing.Test results should be interpreted in the context ofclinical findings and other laboratory data.Rare polymorphisms exist that could lead to false-negativeor false-positive results. If results do not match theclinical findings, additional testing should be considered.Results reported to [facility].This test has been authorized by the FDA under the EmergencyUse Authorization (EUA) for use by authorized laboratories. Influenza A PCR Not Detected Not Detect. [facility] Influenza B PCR Not Detected Not Detect. [facility] Human metapneumovirus PCR Not Detected Not Detect. [facility] Rhino/Enterovirus PCR Not Detected Not Detect. [facility] Mycoplasma pneumoniae PCR Not Detected Not Detect. [facility] Parainfluenza 1 PCR Not Detected Not Detect. [facility] Parainfluenza 2 PCR Not Detected Not Detect. [facility] Parainfluenza 3 PCR Not Detected Not Detect. [facility] Parainfluenza 4 PCR Not Detected Not Detect. [facility] RSV PCR Not Detected Not Detect. [facility] Resp Panel NA Note See Note [facility] Comment:All results must be correlated with [...] assay is performed by Multiplexed PCR, utilizing Instilling Values Film Array. 08/10/2024 10:0 0 AM EST 08/10/2024 2:14 PM EST Modesto Adrian MD LAB BLOOD ORDERABLES Final Resul t Performing Organization Address City/[facility]/ZIP Co de Phone Number [facility] [address] [place] [phone] * Bacterial Vaginosis Panel (07/18/2024 9:33 AM EST) TRICHOMONAS VAGINALIS DETECTION BY PCR NOT DETECTED Not Detect [facility] BACTERIAL VAGINOSIS DETECTION BY PCR NEGATIVE Negative [facility] Comment:The BV organism targ ets [...] DETECTION BY PCR NOT DETECTED Not Detect [facility] Mayda glab krusei PCR NOT DETECTED Not Detect [facility] Swab Vaginal structure / Unknown 07/18/2024 9:33 AM EST 07/18/2024 6:21 PM EST Misty Krishna MD LAB MICROBIOLOGY - GENERAL ORDERABLES Final Result Performing Organization Address City/[facility]/ZIP Co de Phone Number [facility] [address] [place] [phone] * (ABNORMAL) Urinalysis, Complete, with Reflex to Culture (07/18/2024 9:33 AM EST) Color Urine Yellow [facility] Appearance Urine Cloudy [facility] PH 6.0 5.0 - 9.0 [facility] Glucose Urine UA Negative Negative mg/dL [facility] Urine Blood Negative Negative [facility] Specific [place] - Urine 1.010 1.005 - 1.025 [facility] Urine Protein Negative Neg-Trace mg/dL [facility] Urine Ketones Negative Negative mg/dL [facility] Nitrite Urine Negative Negative [facility] Leukocyte Esterase Urine Large (3+)(A) Negative [facility] RBC Urine 0-2 0 - 2 /HPF [facility] Urine WBC 21-50(A) 0 - 5 /HPF [facility] Urine Squamous Epithelial Cell 6-10 0 - 2 /HPF [facility] Urine Bacteria Trace None Seen [facility] Hyaline Casts, Urine 0-2 0 - 2 /LPF [facility] Urine 07/18/2024 9:33 AM EST 07/18/2024 6:21 PM EST Narrative [facility] - 07/18/2024 7:07 PM EST Urine, Clean Catch Misty Krishna MD LAB URINE ORDERABLES Final Result Performing Organization Address [facility] Co de Phone Number [facility] [address] [place] [phone] * Culture, Urine, Routine (07/18/2024 9:33 AM EST) Only the most recent of2 resultswithin the time period is included. Urine Urine specimen obtained by clean catch procedure / Unknown 07/18/2024 9:33 AM EST 07/18/2024 7:08 PM EST Comment:UACC Narrative [facility] - 07/19/2024 3:25 PM EST Strep agalactiae (Grp B) Quant > 100,000 cfu/mL Susc N/A Susceptibility not routinely performed on this isolate. Specimen Source: Urine clean catch Misty Krishna MD LAB MICROBIOLOGY - GENERAL ORDERABLES Final Result Performing Organization Address [facility] Co de Phone Number [facility] [address] [place] [phone] * Hm Mammography (04/27/2024 4:21 PM [...] has been evaluated with computer assisted technology. [facility] Cytotechnologis t: SEE COMMENT [facility] Comment: CMG, CT(ASCP) CT screening location: [address] ??[phone] HPV nRNA E6/E7 Not Detected Not Detected [facility] Comment: Methodology: Campus Interviews Intern-Mediated Amplification This assay detects E6/E7 viral messenger RNA (mRNA) from 14 high-risk HPV types (16,18,31,33,35,39,45,51,52,56,58,59,66,68). ? Cervical sources are required for HPV testing. If a vaginal source from a patient who has had a total hysterectomy with removal of cervix was ?? submitted, please contact the testing laboratory for alternative testing options. ?? For additional information, please refer to http://education.Vozeeme/faq/VSW638i5 (This link if provided for information/ educational purposes only.) Interpretation/ Result: Negative for intraepithelial lesion or malignancy. [facility] LMP: PM [facility] Prev. BX: NONE [facility] Prev. PAP: NONE [facility] SOURCE: Cervix [facility] Statement Of Adequacy: SEE COMMENT [facility] Comment: Satisfactory for evaluation. Endocervical/transformation zone component present. 03/01/2022 11:0 3 AM EDT us Hannah Leyva CNM LAB PATHOLOGY ORDERABLES Final Result [facility] [address] * (ABNORMAL) LIPID PANEL, STANDARD (08/11/2020 [...] ?? Sebastien PATEL et al. SCARLETT. 2013;310(19): 8010-6540 ?? (http://education.Optherion/faq/BDH160) Non-HDL Cholesterol 120 <130 mg/dL (calc) [facility] Comment: For patients with diabetes plus 1 major ASCVD risk ?? factor, treating to a non-HDL-C goal of <100 mg/dL ?? (LDL-C of <70 mg/dL) is considered a therapeutic ?? option. Triglycerides 95 <150 mg/dL [facility] 08/11/2020 8:07 AM EST Rina Solorio MD LAB BLOOD ORDERABLES Final Re sult [facility] [address] [place] [address], * ALBUMIN, RANDOM URINE W/CREATININE (04/02/2020 8:42 AM EDT) Microalbumin Urine 0.5 See Note: mg/dL [facility] Comment: Reference Range: ?? Reference [...] Urine 84 20 - 275 mg/dL [facility] 04/02/2020 8:4 2 AM EDT Rina Solorio MD LAB URINE ORDERABLES Final Re sult Performing Organization Address [facility] Phone Number [facility] [address] * HEPATITIS C ANTIBODY RFLX (10/03/2019 10:32 AM EST) HEPATITIS C ANTIBODY NONREACTIVE NONREACTIVE [facility] Comment: Antibodies to HCV not detected; does not exclude early acute HCV infection. 10/03/2019 10:3 2 AM EST Historical Provider HISTORICAL/NON ORDERABLE LABS Final Result Performing Organization Address [facility] [address] * HIV AB/AG (10/03/2019 10:32 AM [...] detection of this assay. ?? The [employer] HIV Ag/Ab Combo assay result and supplemental assay results should be interpreted in conjunction with the patient's clinical presentation, history and other laboratory results. ??If the results are inconsistent with clinical evidence, additional testing is suggested to confirm the result. 10/03/2019 10:3 2 AM EST Historical Provider HISTORICAL/NON ORDERABLE LABS Final Result [facility] [address] * Colonoscopy (12/17/2015) Colonoscopy Normal Normal Narrative Kendal Hollins - 12/17/2015 Recommended 10 year follow up us Historical Provider HEALTH MAINTENANCE Final Result from Last 3 Months or Most Recently Relevant to Health Maintenance Insurance [id number] DENTAL-[facility] MEDICAID STAND ADULT Care Teams Geographic Area Intelligence Officer Relationship Specialty Start Date End Date Rina Solorio MD [address] [place] [phone] PCP - General Family Medicine 12/15/15
--- OUTSIDE RECORDS SUMMARY | 2024-09-06 08:10 | XMS_ITS | Encounter Summary ---
Author Organization [employer] [facility] Address [address] [facility] 7t [place] [address] Care Team Providers Care Gmat Tutor Name Role Phone Rina Solorio MD Primary Care Provider [phone] Encounter Details Date Type Department Care Team (Late Contact Info) Description 06/13/2023 Abstract [facility] [address] [place], [place] [phone] Kendal Hollins Social History Tobacco Use Types [...] Description 09/06/2024 11:30 AM EST Office Visit [facility] [address] [place], [place] [phone] Aminta Chicas, JEFF [address] [place], [place] [phone] documented as of this encounter Procedures Procedure Name Priority Date/Time Associated Diagnosis Comments COLONOSCOPY Routine 12/17/2015 documented in this encounter Results * Colonoscopy (12/17/2015) Colonoscopy Normal Normal Narrative Kendal Hollins - 12/17/2015 Recommended 10 year follow up us Historical Provider HEALTH MAINTENANCE Final Result documented in this encounter Visit Diagnoses Not on filedocumented in this encounter Care Teams Gmat Tutor Relationship Specialty Start Date End Date Rina Solorio MD [address] [place] [phone] PCP - General Family Medicine 12/15/15 documented as of this encounter
--- OUTSIDE RECORDS SUMMARY | 2024-09-06 08:10 | XMS_ITS | Encounter Summary ---
Author Organization [employer] Address [address] [facility] 7 [place] [address] Care Team Providers Care Weigh Boss Name Role Phone Rina Solorio MD Primary Care Provider [phone] Reason for Visit * Reason Comments Follow-up Dm Encounter Details Date Type Department Care Team ([facility] Contact Info) Description 09/05/2024 9:00 AM EST Office Visit [facility] [address] [place] [address] Rina Solorio MD [address] [place] [address] Atrophic vaginitis (Primary Dx); Type 2 diabetes mellitus without complication, without long-term current use of insulin ([facility]); Dietary counseling; Exercise counseling; Acute vaginitis; [...] vaginal cream weekly for atrophic vaginitis. Her BUSINESS SYSTEMS ADVISOR exam and Pap smear are up-to-date. She was seen recently by Dr. Krishna for left breast pain, breast mammogram and ultrasound were ordered but per patient she has not been called with these appointments yet. History provided by: Patient parts back counter man used: No Diabetes She presents for her [...] complication, without long-term current use of insulin ([facility]) Comments: A1c is increasing since last [...] ordered for her but never scheduled by [facility]. hair or beauty salon [facility]. Appointments handed to the patient. documented in this encounter Plan of Treatment Upcoming Encounters Date Type Department Care Team (Late st Contact Info) Description 09/06/2024 11:30 AM EST Office Visit [facility] [address] [place] [address] Aminta Chicas, DMD [address] [place] [address] Scheduled Orders Name Type Priority Associated Diagnoses Orde r Schedule Lipid Panel, Standard Lab Routine Type 2 diabetes mellitus without complication, without long-term current use of insulin ([facility]) Dietary counseling Exercise counseling Atrophic vaginitis Acute vaginitis Expected: 09/05/2024 (Approximate), Expires: 09/05/2025 Basic Metabolic Panel, Fasting Lab Routine Type 2 diabetes mellitus without complication, without long-term current use of insulin ([facility]) Dietary counseling Exercise counseling Atrophic vaginitis Acute vaginitis Expected: 09/05/2024 (Approximate), Expires: 09/05/2025 CBC auto differential Lab Routine Type 2 diabetes mellitus without complication, without long-term current use of insulin ([facility]) Dietary counseling Exercise counseling Atrophic vaginitis Acute vaginitis Expected: 09/05/2024 (Approximate), Expires: 09/05/2025 Hepatic Function Panel Lab Routine Type 2 diabetes mellitus without complication, without long-term current use of insulin ([facility] Dietary counseling Exercise counseling Atrophic vaginitis Acute vaginitis Expected: 09/05/2024 (Approximate), Expires: 09/05/2025 Vitamin D, 25-Hydroxy, Total, Immunoassay Lab Routine Type 2 diabetes mellitus without complication, without long-term current use of insulin ([facility] Dietary counseling Exercise counseling Atrophic vaginitis Acute vaginitis Expected: 09/05/2024 (Approximate), Expires: 09/05/2025 TSH W/Reflex to FT4 Lab Routine Type 2 diabetes mellitus without complication, without long-term current use of insulin ([facility] Dietary counseling Exercise counseling Atrophic vaginitis Acute vaginitis Expected: 09/05/2024 (Approximate), Expires: 09/05/2025 Bacterial Vaginosis Panel Microbiology Routine Acute vaginitis Ordered: 09/05/2024 documented as of this encounter Procedures Procedure Name Priority Date/Time Associated Diagnosis Comments POCT GLYCATED HEMOGLOBIN, TOTAL Routine 09/05/2024 10:12 AM EST Type 2 diabetes mellitus without complication, without long-term current use of insulin ([facility] POCT URINALYSIS DIPSTICK Routine 09/05/2024 10:11 AM EST Acute vaginitis POCT GLUCOSE Routine 09/05/2024 9:04 AM EST Type 2 diabetes mellitus without complication, without long-term current use of insulin ([facility] documented in this encounter Results * (ABNORMAL) [...] Urine 09/05/2024 10:1 1 AM EST Result [facility] Rina Solorio MD POINT OF CARE TEST ENTER/EDIT ORDERABLES Final Result * POCT glucose manually resulted (09/05/2024 9:04 AM EST) Glucose Blood, POC 121 60 - 200 mg/dL QC Media Lot # Comment:[id number] Lot# Expiration Date Comment:11/12/2024 Blood Capillary blood specimen / Unknown 09/05/2024 9:04 AM EST Result [facility] Rina Solorio MD POINT OF CARE TEST ENTER/EDIT ORDERABLES Final Result documented in this encounter Visit Diagnoses Diagnosis Atrophic vaginitis- Primary Postmenopausal atrophic vaginitis Type 2 diabetes mellitus without complication, without long-term current use of insulin ([facility]) Dietary counseling Dietary surveillance and counseling Exercise counseling Acute vaginitis Unspecified vaginitis and vulvovaginitis Insect sting allergy, current reaction, accidental or unintentional, initial encounter Breast pain, left documented in this encounter Care Teams Weigh Boss Relationship Specialty Start Date End Date Rina Solorio MD [address] [place] [address] PCP - General Family Medicine 12/15/15 documented as of this encounter
--- OUTSIDE RECORDS SUMMARY | 2024-09-06 08:10 | XMS_ITS | Encounter Summary ---
Author Organization [facility] Address 75 [facility] 7 [place] [address] Care Team Providers Care Tax Form Preparer Name Role Phone Rina Solorio MD Primary Care Provider [phone] Encounter Details Date Type Department Care Team (Latest Contact Info) Description 12/28/2021 Abstract [facility] CONVERSIONS Dental, Provider, DDS Social History Tobacco [...] Description 09/06/2024 11:30 AM EST Office Visit [facility] [address] [place] [address] Aminta Chicas DMD [address] [place] [address] documented as of this encounter Visit Diagnoses Not on filedocumented in this encounter Care Teams Tax Form Preparer Relationship Specialty Start Date End Date Rina Solorio MD [address] [place] [address] PCP - General Family Medicine 12/15/15 documented as of this encounter
--- OUTSIDE RECORDS SUMMARY | 2024-09-06 08:10 | XMS_ITS | Encounter Summary ---
Author Organization [employer] [facility] Address [address] [facility] 7 [place] [address] Care Team Providers Care Shorthand Reporter Name Role Phone Rina Solorio MD Primary Care Provider [phone] Encounter Details Date Type Department Care Team (Late Contact Info) Description 12/06/2022 Orders Only [facility] MED & PEDS [address] [place] [address] Izabella Anaya LPN Social History Tobacco Use [...] 11:30 AM EST Office Visit [facility] ADULT DENTAL [address] [place] [address] Aminta Chicas DMD 505 [place] [address] documented as of this encounter Visit Diagnoses Not on filedocumented in this encounter Care Teams Shorthand Reporter Relationship Specialty Start Date End Date Rina Solorio MD [address] [place] [address] PCP - General Family Medicine 12/15/15 documented as of this encounter
--- OUTSIDE RECORDS SUMMARY | 2024-09-06 08:10 | XMS_ITS | Encounter Summary ---
Author Organization [employer] Address [address] [facility] 7t [place] [address] Care Team Providers Care Check Pilot Name Role Phone Rina Solorio MD Primary Care Provider [phone] Encounter Details Date Type Department Care Team (Late st Contact Info) Description 08/10/2024 12:20 PM EST Office Visit [facility] [address] [place] [address] [phone] Modesto Adrian MD [address] [place] [address] [phone] Viral URI Social History Tobacco Use Types [...] Upcoming Encounters Date Type Department Care Team ([facility] st Contact Info) Description 09/06/2024 11:30 AM EST Office Visit [facility] ADULT DENTAL [address] [place] [address] Aminta Chicas DMD [address] [place] [address] documented as of this encounter Procedures Procedure [...] evaluation, Weakly Positive QC Media Lot # [id number] Lot# Expiration Date Swab 08/10/2024 10:5 0 AM EST us Modesto Adrian MD POINT OF CARE TEST ENTER/EDIT OR DERABLES Final Result * POCT Rapid Influenza A ANDERSON ID NOW (08/10/2024 10:49 AM EST) Influenza A Negative Negative, Indeterminate [facility] QC Media Lot # [id number] [facility] Lot# Expiration Date [facility] Swab 08/10/2024 10:4 9 AM EST us Modesto Adrian MD POINT OF CARE TEST ENTER/EDIT OR DERABLES Final Result [facility] [address] [place] [phone] * POCT Rapid Strep A ANDERSON ID NOW (08/10/2024 10:49 AM EST) [facility] Rapid Strep A Screen Negative Negative, None Detected QC Media Lot # [id number] Lot# Expiration Date [id number] Swab 08/10/2024 10:4 9 AM EST Modesto Adrian MD POINT OF CARE TEST ENTER/EDIT OR DERABLES Final Result * POCT Rapid Influenza B ANDERSON ID NOW (08/10/2024 10:48 AM EST) [facility] Influenza B Negative Negative, Indeterminate [facility] QC Media Lot # [id number] [facility] Lot# Expiration Date , [facility] Swab 08/10/2024 10:4 8 AM EST Modesto Adrian MD POINT OF CARE TEST ENTER/EDIT OR DERABLES Final Result [facility] [address] [place] [phone] * Respiratory Viral Panel PCR (08/10/2024 10:00 AM EST) [facility] Adenovirus PCR Not Detected Not Detect. [facility] Bordetella pertussis PCR Not Detected Not Detect. [facility] Comment:Interpret results wi th caution. If B. pertussis isspecifically suspected, additional testing using analternate method is recommended. Bordetella parapertussis PCR Not Detected Not Detect. [facility] Chlamydia pneumoniae PCR Not Detected Not Detect. [facility] Coronavirus 229E PCR Not Detected Not Detect. [facility] Coronavirus HKU1 PCR Not Detected Not Detect. [facility] Coronavirus NL63 PCR Not Detected Not Detect. [facility] Coronavirus OC43 PCR Not Detected Not Detect. [facility] SARS-CoV-2 PCR Not Detected Not Detect. [facility] Comment:SARS-CoV-2 not detec eun by [...] Influenza A PCR Not Detected Not Detect. [facility] Influenza B PCR Not Detected Not Detect. [facility] Human metapneumovirus PCR Not Detected Not Detect. [facility] Rhino/Enterovirus PCR Not Detected Not Detect. [facility] Mycoplasma pneumoniae PCR Not Detected Not Detect. [facility] Parainfluenza 1 PCR Not Detected Not Detect. [facility] Parainfluenza 2 PCR Not Detected Not Detect. [facility] Parainfluenza 3 PCR Not Detected Not Detect. [facility] Parainfluenza 4 PCR Not Detected Not Detect. [facility] RSV PCR Not Detected Not Detect. [facility] Resp Panel NA Note See Note [facility] Comment:All results must be correlated [...] assay is performed by Multiplexed PCR, utilizing [employer] Array. 08/10/2024 10:0 0 AM EST 08/10/2024 2:14 PM EST us Modesto Adrian MD LAB BLOOD ORDERABLES Final Resul t [facility] [address] [place] [phone] documented in this encounter Visit Diagnoses Diagnosis Viral URI Acute upper respiratory infections of unspecified site documented in this encounter Care Teams Check Pilot Relationship Specialty Start Date End Date Rina Solorio MD [address] [place] [address] PCP - General Family Medicine 12/15/15 documented as of this encounter
--- OUTSIDE RECORDS SUMMARY | 2024-09-06 08:10 | XMS_ITS | Encounter Summary ---
Author Organization [employer] Address [address] [facility] 7 [place] [address] Care Team Providers Care Plastic Cutter Name Role Phone Rina Solorio MD Primary Care Provider [phone] Reason for Visit * Reason Comments Filling Encounter Details Date Type Department Care Team ([facility] st Contact Info) Description 08/27/2024 9:00 AM EST Office Visit [facility] ADULT DENTAL [address] [place], [place] [phone] Aminta Chicas DMD [address] [place], [place] [phone] Social History Tobacco Use Types Packs/Day Years [...] t he electric, gas, oil or water Rue[employer] threatened to shut off services in your [...] y.o. female. Time Out: Date: 08/27/2024 Location: [facility] Tooth: #2 Procedure: Jain Verified the above with patient, medical records assistant, and provider. Confirmed via patient's chart, intraorally and by radiographs. Regional Wildlife Agent: Yes. Language: Hong Konger. Regional Wildlife Agent's Name: Ani Osman Composite jew done on #[address] Aminta [...] carpule 2% lidocaine 1:100,000 epinephrine - Existing jew and recurrent decay removed - Matrix band and wedge used as needed - Desensitizer: GLUMA - Etching done using 37% phosphoric acid and rinsed. - special agent applied and light cured. - Composite jew done using Ionofill and Filtek body and flowable composite, shade A3.5 - Anatomy and margins adjusted. - Proximal contact confirmed with floss. - Occlusion checked with articulating paper. - Necessary reductions made. - Jain smoothed and polished. - Post op instructions [...] RPD Impressions Provider: Dr. Aminta Chicas DMD Trial Manager: Ani Osman Supervising Dentist: Dr. Ailyn Rodriguez [...] Description 09/06/2024 11:30 AM EST Office Visit [facility] ADULT DENTAL [address] [place] [address] Aminta Chicas DMD [address] [place] [address] Scheduled Orders Name Type Priority Associated Diagnoses [...] on filedocumented in this encounter Care Teams Plastic Cutter Relationship Specialty Start Date End Date Rina Solorio MD [address] [place] [address] PCP - General Family Medicine 12/15/15 documented as of this encounter
--- OUTSIDE RECORDS SUMMARY | 2024-09-06 08:10 | XMS_ITS | Encounter Summary ---
Author Organization [employer] Address [address] [facility] 7 [place] [address] Care Team Providers Care Vfx Artist Name Role Phone Rina Solorio MD Primary Care Provider [phone] Reason for Visit * Reason Onset Date Comments Appointment Request 08/30/2022 Encounter Details Date Type Department Care Team ([facility] st Contact Info) Description 08/30/2022 Telephone [facility] MED & PEDS [address] [place], [place] [phone] Rina Solorio MD [address] [place] [address] Appointment Request Social History Tobacco Use Types [...] Complete Left If any concerns please contact [phone] Croatian Speaker documented in this encounter Plan of Treatment Upcoming Encounters Date Type Department Care Team (Late st Contact Info) Description 09/06/2024 11:30 AM EST Office Visit [facility] ADULT DENTAL [address] [place], [place] [phone] Aminta Chicas DMD [address] [place] [address] documented as of this encounter Visit Diagnoses Not on filedocumented in this encounter Care Teams Vfx Artist Relationship Specialty Start Date End Date Rina Solorio MD [address] [place] [address] PCP - General Family Medicine 12/15/15 documented as of this encounter
--- OUTSIDE RECORDS SUMMARY | 2024-09-06 08:10 | XMS_ITS | Encounter Summary ---
Author Organization [facility] Address [address] [facility] 7t [place] [address] Care Team Providers Care Green Marketer Name Role Phone Rina Solorio MD Primary Care Provider [phone] Reason for Referral * Imaging (Routine) - Authorized Specialty Diagnoses / Procedures Referred By Contac t Referred To Contact Radiology Diagnoses Breast pain, left Procedures BI US Breast Limited Left Misty Krishna MD [address] [place] [address] Phone: tel: fax: [address] Phone: tel: fax: Referral ID Status Reason Start Date Expiration Date V isits Requested Visits Authorized [id number] Authorized 08/27/2024 08/27/2025 1 1 * Imaging (Routine) - Authorized Specialty Diagnoses / Procedures Referred By Contac t Referred To Contact Radiology Diagnoses Breast pain, left Procedures BI Mammogram Diagnostic Tomosynthesis added left Misty Krishna MD [address] [place] [address] Phone: tel: fax: [address] Phone: tel: fax: Referral ID Status Reason Start Date Expiration Date V isits Requested Visits Authorized [id number] Authorized 08/27/2024 08/27/2025 1 1 Encounter Details Date Type Department Care Team (Late st Contact Info) Description 08/27/2024 2:40 PM EST Office Visit [facility] WALK[facility]IN [facility] [address] [place] [address] Misty Krishna MD [address] [place], [place] [phone] Breast pain, left (Primary Dx) Social History [...] BIRADS - 1, negative. Pt had dental yarsanism done earlier today. No complications. She reports [...] Description 09/06/2024 11:30 AM EST Office Visit [facility] ADULT DENTAL [address] [place] [address] Aminta Chicas, JEFF [address] [place] [address] Scheduled Orders Name Type Priority Associated Diagnoses Orde r Schedule BI Mammogram Diagnostic Tomosynthesis added left Imaging Routine Breast pain, left Expected: 08/27/2024, Expires: 10/25/2025 BI US Breast Limited Left Imaging Routine Breast pain, left Expected: 08/27/2024, Expires: 10/25/2025 documented as of this encounter Visit Diagnoses Diagnosis Breast pain, left- Primary documented in this encounter Care Teams Green Marketer Relationship Specialty Start Date End Date Rina Solorio MD [address] [place] [address] PCP - General Family Medicine 12/15/15 documented as of this encounter
--- OUTSIDE RECORDS SUMMARY | 2024-09-06 08:10 | XMS_ITS | Encounter Summary ---
Author Organization [employer] [facility] Address [address] [facility] 7t [place] [address] Care Team Providers Care Ferryboat Operator Name Role Phone Rina Solorio MD Primary Care Provider [phone] Reason for Visit * Reason Comments Med Refill Encounter Details Date Type Department Care Team ([facility] Contact Info) Description 12/06/2022 Refill [facility] MED & PEDS [address] [place], [place] [phone] Rina Solorio MD [address] [place] [address] Social History Tobacco Use Types Packs/Day Years [...] Description 09/06/2024 11:30 AM EST Office Visit [facility] ADULT DENTAL [address] [place], [place] [phone] Aminta Chicas DMD [address] [place] [address] documented as of this encounter Visit Diagnoses Not on filedocumented in this encounter Care Teams Ferryboat Operator Relationship Specialty Start Date End Date Rina Solorio MD [address] [place] [address] PCP - General Family Medicine 12/15/15 documented as of this encounter
--- OUTSIDE RECORDS SUMMARY | 2024-09-06 08:10 | XMS_ITS | Clinical Summary ---
Author Organization [facility] it Address [address] [place] [phone] Care Team Providers Care Telehealth Director Name Role Phone Jadiel Daly MD Primary Care Provider [phone] Surgical History Surgery Date Site/Laterality Comments SECTION PROCEDURE: CA DELIVERY ONLY; COMMENT: x 5 OTHER SURGICAL HISTORY PROCEDURE: CA UNLISTED LAPAROSCOPY PROCEDURE UTERUS Medical History Medical History Date Comments Pap smear abnormality of cervix 08/26/2014 DX:Pap smear abnormality of cervix Family History Medical History Relation Name Comments Diabetes Father Diabetes Sister 1 Relation Name Status Comments Brother 1 Alive Brother 2 Alive Brother 3 Alive Daughter 1 Atra Alive Daughter 2 Coralise Alive Daughter 3 [...] Info) Description 09/20/2024 1:00 PM EST Appointment [facility] Ultrasound [address] [place] [address] Health Maintenance Due Date Last [...] Recently Relevant to Health Maintenance Results * [facility] SCREENING DIGITAL (04/29/2024 9:43 AM EDT) Anatomical Region Laterality Modality Mammography 04/25/2024 1:25 PM EDT Narrative 04/29/2024 9:43 AM EDT [facility] Diagnostic Imaging Department [address] [place] [address] Patient: ??YOBANY AUSTIN ?/Age/Sex: 1965 - 59 - F Unit#: ??[id number] ? Location/Status: ??SPDIMAM/REG CLI ? Mnemonic/Ordering Site: ??DIGSC/SPMAM Ordering Physician: ??ALEISHA SOLORIO [facility] Screening Digital - 04/27/24920 Report Status:Signed EXAM: [facility] Screening Digital EXAM DATE AND TIME: 04/27/2024 9:22 AM HISTORY: ??Screening. COMPARISON: ??04/24/23, 04/20/22, 04/14/21 TECHNIQUE: Bilateral digital breast tomosynthesis was performed in the CC and MLO projections. Computer aided detection with iCAD [employer] 3D 3.1 was employed. TISSUE DENSITY: b. [...] Mammogram performed at [facility] [address] [place] [address] Dictating Physician: ??ERYN GRAJEDA MD Electronically Signed by: ??ERYN GRAJEDA MD Dic Date/Time: ??04/29/24941 Sign date/Time: ??04/29/24942 Procedure Note Eryn Grajeda MD - 05/22/2024 [facility] Diagnostic Imaging Department [address] [place] [address] Patient: YOBANY AUSTIN./Age/Sex: 1965 - 59 - F Unit#: [id number] [facility]Ordering Site[facility] Ordering Physician: ALEISHA SOLORIO [facility] Screening Digital - 04/27/24 - 920 Report Status:Signed EXAM: [facility] Screening Digital EXAM DATE AND TIME: 04/27/2024 9:22 AM HISTORY: Screening. COMPARISON: 04/24/23, 04/20/22, 04/14/21 TECHNIQUE: Bilateral digital breast tomosynthesis was performed in the CCand MLO projections. Computer aided detection with iCAD [employer] 3D 3.1was employed. TISSUE DENSITY: b. There [...] Mammogram performed at [facility] [place] [address] Dictating Physician: ERYN GRAJEDA MD Electronically Signed by: ERYN GRAJEDA MD Dic Date/Time: 04/29/24941 Sign date/Time: 04/29/24942 Aleisha Solorio MD IMG BI PROCEDURES from Last 3 Months or Most Recently Relevant to Health Maintenance Advance Directives Documents on File Type Date Recorded Patient Manager Building Expl anation Health Care Decision (hx) 02/27/2013 [...] (hx) 02/20/2013 AD BRAND DIRECTIVE Care Teams Telehealth Director Relationship Specialty Start Date End Date Jadiel Daly MD [address] [place] [address] PCP - General Internal Medicine 03/09/13
[2024-09-06 11:48] LABS: MANUAL DIFF FLAG NO
[2024-09-06 11:56] LABS: Basophils Percent Auto 0.6 % (0-2); Eosinophils Absolute Auto 0.1 X10*3/uL (0.0-0.4); Eosinophils Percent Auto 1.5 % (0-4); Hematocrit 34.7 % (37.0-47.0); Hemoglobin 11.6 g/dl (12.0-16.0); Imm Gran Abs Auto 0.02 X10*3/uL (0.00-0.03); Imm Gran Pct Auto 0.4 % (0.0-0.4); Lymphocytes Absolute Auto 1.5 X10*3/uL (1.2-4.9); Lymphocytes Percent Auto 28.2 % (20-40); Mean Corpuscular HGB Conc 33.4 g/dl (31.0-35.0); Mean Corpuscular Hemoglobin 27.8 pg (27.0-33.0); Mean Corpuscular Volume 83.2 fL (80.0-98.0); Mean Platelet Volume 10.1 fL (9.4-12.3); Monocytes Absolute Auto 0.2 X10*3/uL (0.1-1.2); Monocytes Percent Auto 3.6 % (2-11); Neutrophils Absolute Auto 3.5 x10*3/uL (2.0-8.3); Neutrophils Percent Auto 65.7 % (45-73); Platelet Count 297 X10*3/uL (160-400); Red Blood Count 4.17 X10*6/uL (4.20-5.50); Red Cell Distribution Width 13.5 % (11.0-16.0); White Blood Count 5.4 X10*3/uL (4.8-10.8)
[2024-09-06 12:50] LABS: Alanine Aminotransferase 26 U/L (0-31); Albumin Level 4.6 g/dL (3.5-5.0); Alkaline Phosphatase 91 U/L (39-117); Anion Gap 12 (12-20); Aspartate Amino Transferase 31 U/L (5-31); Bilirubin Direct 0.2 mg/dL (0.0-0.5); Bilirubin Total 0.5 mg/dL (0.0-1.0); Blood Urea Nitrogen 17 mg/dL (9-16); Calcium 10.1 mg/dL (8.4-10.2); Carbon Dioxide 27 mmol/L (22-29); Chloride 108 mmol/L (96-108); Cholesterol 159 mg/dL (<200); Estimated Glomerular Filt Rate > 60; Glucose Fasting 100 mg/dL (60-99); HDL Cholesterol 40 mg/dL (>40); LDL Cholesterol Calculated 102 mg/dL (<100); Potassium 4.6 mmol/L (3.3-5.1); Sodium 142 mmol/L (135-145); Total Protein 8.4 g/dL (6.5-8.0); Triglycerides 89 mg/dL (<150)
[2024-09-06 13:21] LABS: TSH reflex Free T4 1.31 uIU/mL (0.32-4.0); Vitamin D 25-OH Total 55.1 ng/mL (>30)
== END 2024-09-06 08:07 | disposition home or self-care (01) ==
LOC: HO.CHCLDS 08:06
PROVIDERS: Visit Provider Pediatrics
DX: N95.2 Postmenopausal atrophic vaginitis (principal); E11.9 Type 2 diabetes mellitus without complications; Z71.3 Dietary counseling and surveillance; Z71.82 Exercise counseling; N76.0 Acute vaginitis
CPT/HCPCS: 36415; 80048; 80061; 80076; 82306; 84443; 85025

== ENCOUNTER 2024-12-12 09:38 | Outpatient (REF) | payer MEDICAID, SELFPAY ==
--- OUTSIDE RECORDS SUMMARY | 2024-12-12 10:22 | XMS_ITS | Encounter Summary ---
Author Organization [employer] [facility] Address [address] [facility] 7 [place] [address] Care Team Providers Care Shoe Reconditioner Name Role Phone Rina Solorio MD Primary Care Provider Encounter Details Date Type Department Care Team (Latest Contact Info) Description 12/28/2021 Abstract [facility] CONVERSIONS Dental, Provider, DDS Social [...] Care Team (Late st Contact Info) Description 03/14/2025 9:00 AM EDT Office Visit [facility] CHC MED & PEDS [address] [place] [address] Rina Solorio MD [address] [place] [address] 05/01/2025 8:00 AM EDT Office Visit [facility] ADULT DENTAL [address] [place] [address] Ca, Carina [address] [place] [address] documented as of this encounter Visit Diagnoses Not on filedocumented in this encounter Care Teams Shoe Reconditioner Relationship Specialty Start Date End Date Rina Solorio MD [address] [place] [address] PCP - General Family Medicine 12/15/15 documented as of this encounter
--- OUTSIDE RECORDS SUMMARY | 2024-12-12 10:22 | XMS_ITS | Encounter Summary ---
Author Organization [employer] Address [address] [place] [address] 7 [place] [address] Care Team Providers Care Non Destructive Evaluation Technician Name Role Phone Rina Solorio MD Primary Care Provider [phone] Encounter Details Date Type Department Care Team ([facility] Contact Info) Description 12/06/2022 Orders Only [facility] MED & PEDS [address] [place] [address] Izabella Anaya LPN Social History Tobacco Use [...] Department Care Team (Late Contact Info) Description 03/14/2025 9:00 AM EDT Office Visit [facility] MED & PEDS [address] [place] [address] Rina Solorio MD [address] [place] [address] 05/01/2025 8:00 AM EDT Office Visit [facility] ADULT DENTAL [address] [place] [address] Carina Penaloza [address] [place] [address] documented as of this encounter Visit Diagnoses Not on filedocumented in this encounter Care Teams Non Destructive Evaluation Technician Relationship Specialty Start Date End Date Rina Solorio MD [address] [place] [address] PCP - General Family Medicine 12/15/15 documented as of this encounter
--- OUTSIDE RECORDS SUMMARY | 2024-12-12 10:22 | XMS_ITS | Encounter Summary ---
Author Organization [email or web address] Address [address] [facility] 7t [place] [address] Care Team Providers Care Glove Boarder Name Role Phone Rina Solorio MD Primary Care Provider [phone] Reason for Visit * Reason Comments Earache Fever Sore Throat Encounter Details Date Type Department Care Team ([facility] st Contact Info) Description 12/09/2024 8:40 AM EDT Office Visit [facility] [address] [place], [place] [id number] Yaw Jones MD [address] [place] [address] Influenza-like symptoms (Primary Dx); Acute URI Social History Tobacco Use Types Packs/Day [...] Sign Reading Time Taken Comments Blood Pressure 139/90 12/09/2024 8:42 AM EDT Pulse 90 12/09/2024 8:42 AM EDT Temperature 36.9 ??C (98.5 ??F) 12/09/2024 8:42 AM ED T Respiratory Rate 17 12/09/2024 8:42 AM EDT Oxygen Saturation 97% 12/09/2024 8:42 AM EDT Inhaled Oxygen Concentration - - Weight 65.4 kg (144 lb 3.2 oz) 12/09/2024 8:42 A M EDT Height - - Body Mass Index 28.64 09/05/2024 9:03 AM EST documented in this encounter Progress Notes * Yaw Jones MD - 12/09/2024 8:40 AM EDT Subjective Patient ID: Yobany Lamar is a 59 y.o. female. HPI Yobany has 4 day h/o sore throat, bilat ear pain, occasional dry cough. ?tactile fever. No SOB, n/v/d. Taking po well. Has not tried any pain meds. Lives with , daughter, grandson. Grandson is coughing. Not employed. Never smoked. Patient Active Problem List Diagnosis Acute vaginitis Cystitis Increased frequency of urination Knee pain Moderate anxiety Vitamin D deficiency Dysuria Gastroesophageal reflux disease Pelvic pain in female Straining during bowel movements Epigastric pain Preseptal cellulitis Elevated blood pressure reading Musculoskeletal pain Glaucoma suspect Vaginal candidiasis Breast pain, left The following portions of the chart were reviewed this encounter and updated as appropriate: Review of Systems Constitutional: Positive for fever. HENT: Positive for ear pain and sore throat. Respiratory: Positive for cough. Negative for shortness of breath. Cardiovascular: Negative for chest pain. Gastrointestinal: Negative for abdominal pain. Skin: Negative for rash. Neurological: Negative for headaches. Objective Physical Exam Constitutional: Appearance: Normal appearance. HENT: Right Ear: Tympanic membrane, ear canal and external ear normal. Left Ear: Tympanic membrane, ear canal and external ear normal. Nose: Nose normal. Mouth/Throat: Mouth: Mucous membranes are moist. Pharynx: Oropharynx is clear. Eyes: Conjunctiva/sclera: Conjunctivae normal. Pupils: Pupils are equal, round, and reactive to light. Cardiovascular: Rate and Rhythm: Normal rate and regular rhythm. Heart sounds: No murmur heard. Pulmonary: Effort: Pulmonary effort is normal. Breath sounds: Normal breath sounds. Musculoskeletal: General: Normal range of motion. Cervical back: No tenderness. Skin: Findings: No rash. Neurological: Mental Status: She is alert. Gait: Gait is intact. Psychiatric: Mood and Affect: Mood normal. Behavior: Behavior normal. Procedures Assessment/Plan Diagnoses and all orders for this visit: Influenza-like symptoms Negative rapid Covid and Influenza tests. Rapid Strep test negative. Prescribed acetaminophen. She has ibuprofen at home. Rest, lots of liquids. rtc if not improving. - POCT Rapid COVID Ag - POCT rapid strep A manually resulted - Influenza A (ID NOW Rapid Molecular) - Influenza B (ID NOW Rapid Molecular) Other orders - acetaminophen (Tylenol) 500 MG tablet; Take 2 tablets (1,000 mg) by mouth every 6 (six) hours if needed for moderate pain or fever for up to 25 doses. documented in this encounter Plan of Treatment Upcoming Encounters Date Type Department Care Team ([facility] st Contact Info) Description 03/14/2025 9:00 AM EDT Office Visit [facility] [address] [place] [address] Rina Solorio MD [address] [place] [address] 05/01/2025 8:00 AM EDT Office Visit [facility] [address] [place] [address] Ca Carina [address] [place] [address] documented as of this encounter Procedures Procedure Name Priority Date/Time Associated Diagnosis Comments POCT INFLUENZA B (ID NOW RAPID MOLECULAR) Routine 12/09/2024 8:52 AM EDT Acute URI POCT INFLUENZA A (ID NOW RAPID MOLECULAR) Routine 12/09/2024 8:52 AM EDT Acute URI POCT RAPID COVID ANTIGEN Routine 12/09/2024 8:52 AM EDT Acute URI POCT RAPID STREP A Routine 12/09/2024 8: 52 AM EDT Acute URI documented in this encounter Results * Influenza B (ID NOW Rapid Molecular) (12/09/2024 8:52 AM EDT) Influenza B Negative Negative, Indeterminate [facility] Swab 12/09/2024 8:52 AM EDT us Yaw Jones MD POINT OF CARE TEST ENTER/EDIT OR DERABLES Final Result Performing Organization Address [facility]/ZIP Co de Phone Number [facility] [address] [place] [phone] * Influenza A (ID NOW Rapid Molecular) (12/09/2024 8:52 AM EDT) Influenza A Negative Negative, Indeterminate [facility] Swab 12/09/2024 8:52 AM EDT us Yaw Jones MD POINT OF CARE TEST ENTER/EDIT OR DERABLES Final Result Performing Organization Address [facility]/ZIP Co de Phone Number [facility] [address] [place] [phone] * POCT rapid strep A manually resulted (12/09/2024 8:52 AM EDT) Rapid Strep A Screen Negative Negative, None Detected [facility] Swab 12/09/2024 8:52 AM EDT us Yaw Jones MD POINT OF CARE TEST ENTER/EDIT OR DERABLES Final Result Performing Organization Address [facility] de Phone Number [facility] [address] [place] [address] [phone] * POCT Rapid COVID Ag (12/09/2024 8:52 AM EDT) Rapid COVID Ag Negative [facility] Swab 12/09/2024 8:52 AM EDT us Yaw Jones MD POINT OF CARE TEST ENTER/EDIT OR DERABLES Final Result Performing Organization Address [facility] Phone Number [facility] [address] [place] [phone] documented in this encounter Visit Diagnoses Diagnosis Influenza-like symptoms- Primary Other general symptoms Acute URI Acute upper respiratory infections of unspecified site documented in this encounter Care Teams Glove Boarder Relationship Specialty Start Date End Date Rina Solorio MD [address] [place] [address] PCP - General Family Medicine 12/15/15 documented as of this encounter
--- OUTSIDE RECORDS SUMMARY | 2024-12-12 10:22 | XMS_ITS | Encounter Summary ---
Author Organization [employer] Address [address] [facility] [address] [place] [address] Care Team Providers Care Beach Expert Name Role Phone Rina Solorio MD Primary Care Provider [phone] Encounter Details Date Type Department Care Team (Latest Contact Info) Description 12/09/2024 Travel Social History Tobacco Use Types Packs/Day [...] Description 03/14/2025 9:00 AM EDT Office Visit [facility] [address] [place] [address] Rina Solorio MD [address] [place] [address] 05/01/2025 8:00 AM EDT Office Visit [facility] [address] [place] [address] Ca, Carina [address] [place] [address] documented as of this encounter Visit Diagnoses Not on filedocumented in this encounter Care Teams Beach Expert Relationship Specialty Start Date End Date Rina Solorio MD [address] [place] [address] PCP - General Family Medicine 12/15/15 documented as of this encounter
--- OUTSIDE RECORDS SUMMARY | 2024-12-12 10:22 | XMS_ITS | Encounter Summary ---
Author Organization [employer] Address [address] [facility] 7[address] [place] [address] Care Team Providers Care Transcribing Machine Operator Name Role Phone Rina Solorio MD Primary Care Provider [phone] Encounter Details Date Type Department Care Team (Latest Contact Info) Description 12/12/2024 Travel Social History Tobacco Use Types Packs/Day [...] Description 03/14/2025 9:00 AM EDT Office Visit [facility] [address] [place] [address] Rina Solorio MD [address] [place] [address] 05/01/2025 8:00 AM EDT Office Visit [facility] [address] [place] [address] Ca, Carina [address] [place] [address] documented as of this encounter Visit Diagnoses Not on filedocumented in this encounter Care Teams Transcribing Machine Operator Relationship Specialty Start Date End Date Rina Solorio MD [address] [place] [address] PCP - General Family Medicine 12/15/15 documented as of this encounter
--- OUTSIDE RECORDS SUMMARY | 2024-12-12 10:22 | XMS_ITS | Encounter Summary ---
Author Organization [employer] Address [address] [facility] 7 [place] [address] Care Team Providers Care Machine Shop Helper Name Role Phone Rina Solorio MD Primary Care Provider [phone] Reason for Visit * Reason Comments Follow-up Dm Encounter Details Date Type Department Care Team ([facility] st Contact Info) Description 12/12/2024 9:00 AM EDT Office Visit [facility] PED[facility] [address] [place], [place] [phone] Rina Solorio MD [address] [place] [address] Iron deficiency anemia, unspecified iron deficiency anemia type (Primary Dx); Type 2 diabetes mellitus without complication, without long-term current use of insulin ([facility]) Social History Tobacco Use Types Packs/Day Years [...] Reading Time Taken Comments Blood Pressure 120/80 12/12/2024 9:28 AM EDT Pulse 92 12/12/2024 9:09 AM EDT Temperature 36.6 ??C (97.8 ??F) 12/12/2024 9:09 AM ED T Respiratory Rate 16 12/12/2024 9:09 AM EDT Oxygen Saturation 99% 12/12/2024 9:09 AM EDT Inhaled Oxygen Concentration - - Weight 64 kg (141 lb) 12/12/2024 9:09 AM EDT Height 151.1 cm (4' 11.5 ) 12/12/2024 9:09 AM ED T Body Mass Index 28 12/12/2024 9:09 AM EDT documented in this encounter Progress Notes * Rina Solorio MD - 12/12/2024 9:00 AM EDT Subjective Patient ID: Yobany Lamar is a 59 y.o. female who presents for Follow-up (Dm ). Yobany is a 59-year-old postmenopausal patient of mine here for type II DM follow-up. Last seen 3 months ago. Has lost 3 pounds since her last visit. Has been on several trips since her last visit for which her diet has slacked. She has also not been very compliant with exercise activity. She does do a lot of house chores and walks mostly. No complaints today except needs refills on estrogen vaginal cream and allergy meds. She is currently not on any meds for diabetes. Her A1c increased from 6.3-6.5 today. Her fasting labs, colonoscopy, mammogram, Pap smear and vaccines are up-to-date. She just had her eye exam done as well as an eye surgery performed at eye and [facility]. Review of Systems Constitutional: Negative for activity change, chills, fever and unexpected weight change. Respiratory: Negative for cough, shortness of breath and wheezing. Cardiovascular: Negative for chest pain, palpitations and leg swelling. Gastrointestinal: Negative for abdominal pain and blood in stool. Endocrine: Negative for polydipsia and polyuria. Genitourinary: Negative for decreased urine volume, difficulty urinating, dysuria and hematuria. Musculoskeletal: Negative for arthralgias and gait problem. Skin: Negative for color change and rash. Neurological: Negative for dizziness and headaches. Hematological: Negative for adenopathy. Psychiatric/Behavioral: Negative for dysphoric mood, hallucinations, sleep disturbance and suicidalideas. The patient is not nervous/anxious. Objective BP 120/80 Pulse 92 Temp 97.8 ??F (36.6 ??C) (Oral) Resp 16 Ht 4' 11.5 (1.511 m) Wt 141 lb (64 kg) SpO2 99% BMI 28.00 kg/m?? Physical Exam Constitutional: General: She is not in acute [...] Diagnoses and all orders for this visit: Iron deficiency anemia, unspecified iron deficiency anemia type Comments: Recheck CBC today. She takes her iron tablets almost every day. Not very compliant with them. Colonoscopy up-to-date and due in 2025. Orders: - CBC auto differential; Future - Iron And Total Iron Binding Capacity; Future - Ferritin; Future Type 2 diabetes mellitus without complication, without long-term current use of insulin ([facility]) Comments: Yobany will be started on extended release 500 mg metformin daily. Will increase her steps per day to a goal of 10,000 steps return to clinic in 3 months . Orders: - POCT A1C - POCT glucose manually resulted Other orders - estradiol (Estrace) 0.1 MG/GM vaginal cream; insert 1 g vaginally twice a week - cetirizine (ZyrTEC) 10 MG tablet; Take 1 tablet (10 mg) by mouth Once per day. - metFORMIN, OSM, (Fortamet) 500 MG 24 hr tablet; Take 1 tablet (500 mg) by mouth with evening meal. documented in this encounter Plan of Treatment Upcoming Encounters Date Type Department Care Team ([facility] st Contact Info) Description 03/14/2025 9:00 AM EDT Office Visit [facility] [address] [place] [address] Rina Solorio MD [address] [place] [address] 05/01/2025 8:00 AM EDT Office Visit [facility] [address] [place] [address] Ca Carina [address] [place] [address] Scheduled Orders Name Type Priority Associated Diagnoses Orde r Schedule CBC auto differential Lab Routine Iron deficiency anemia, unspecified iron deficiency anemia type Expected: 12/12/2024 (Approximate), Expires: 12/12/2025 Iron And Total Iron Binding Capacity Lab Routine Iron deficiency anemia, unspecified iron deficiency anemia type Expected: 12/12/2024, Expires: 12/12/2025 Ferritin Lab Routine Iron deficiency anemia, unspecified iron deficiency anemia type Expected: 12/12/2024, Expires: 12/12/2025 documented as of this encounter Procedures Procedure Name Priority Date/Time Associated Diagnosis Comments POCT GLYCATED HEMOGLOBIN, TOTAL Routine 12/12/2024 9:11 AM EDT Type 2 diabetes mellitus without complication, without long-term current use of insulin ([facility]) POCT GLUCOSE Routine 12/12/2024 9:11 AM EDT Type 2 diabetes mellitus without complication, without long-term current use of insulin ([facility]) documented in this encounter Results * POCT glucose manually resulted (12/12/2024 9:11 AM EDT) Glucose Blood, POC 135 60 - 200 mg/dL QC Media Lot # Comment:[id number] Lot# Expiration Date Comment:02/06/2025 Blood Capillary blood specimen / Unknown 12/12/2024 9:11 AM EDT us Rina Solorio MD POINT OF CARE TEST ENTER/EDIT ORDERABLES Final Result * (ABNORMAL) POCT A1C (12/12/2024 9:11 AM EDT) Hemoglobin A1C 6.5(A) 4.0 - 6.0 % QC Media Lot # Comment:[id number] Lot# Expiration Date Comment:08/08/2026 Blood 12/12/2024 9:11 AM EDT us Rina Solorio MD POINT OF CARE TEST ENTER/EDIT ORDERABLES Final Result documented in this encounter Visit Diagnoses Diagnosis Iron deficiency anemia, unspecified iron deficiency anemia type- Primary Type 2 diabetes mellitus without complication, without long-term current use of insulin ([facility]) documented in this encounter Care Teams Machine Shop Helper Relationship Specialty Start Date End Date Rina Solorio MD [address] [place] [address] PCP - General Family Medicine 12/15/15 documented as of this encounter
--- OUTSIDE RECORDS SUMMARY | 2024-12-12 10:22 | XMS_ITS | Encounter Summary ---
Author Organization [employer] Address [address] [facility] 7t [place] [address] Care Team Providers Care Surgical Processor Name Role Phone Rina Solorio MD Primary Care Provider [phone] Reason for Visit * Reason Comments Med Refill Encounter Details Date Type Department Care Team ([facility] Contact Info) Description 12/06/2022 Refill [facility] [address] [place] [address] Rina Solorio MD [address] [place] [address] Social History Tobacco Use Types Packs/Day Years [...] Upcoming Encounters Date Type Department Care Team ([facility] Contact Info) Description 03/14/2025 9:00 AM EDT Office Visit [facility] MED & PEDS [address] [place] [address] Rina Solorio MD [address] [place] [address] 05/01/2025 8:00 AM EDT Office Visit [facility] ADULT DENT[facility] [address] [place] [address] Carina Penaloza [address] [place] [address] documented as of this encounter Visit Diagnoses Not on filedocumented in this encounter Care Teams Surgical Processor Relationship Specialty Start Date End Date Rina Solorio MD [address] [place] [phone] PCP - General Family Medicine 12/15/15 documented as of this encounter
--- OUTSIDE RECORDS SUMMARY | 2024-12-12 10:23 | XMS_ITS | Encounter Summary ---
Author Organization [employer] Address [address] [facility] 7t [place] [address] Care Team Providers Care Contractor Buyer Name Role Phone Rina Solorio MD Primary Care Provider [phone] Reason for Visit * Reason Onset Date Comments Appointment Request 08/30/2022 Encounter Details Date Type Department Care Team ([facility] st Contact Info) Description 08/30/2022 Telephone [facility]S [address] [place], [place] [phone] Rina Solorio MD [address] [place] [address] Appointment Request Social History Tobacco Use Types [...] Complete Left If any concerns please contact [phone] Ukrainian Speaker documented in this encounter Plan of Treatment Upcoming Encounters Date Type Department Care Team (Late st Contact Info) Description 03/14/2025 9:00 AM EDT Office Visit [facility] [address] [place] [address] Rina Solorio MD [address] [place] [address] 05/01/2025 8:00 AM EDT Office Visit [facility] ADULT [facility] [address] [place] [address] Ca, Carina [address] [place] [address] documented as of this encounter Visit Diagnoses Not on filedocumented in this encounter Care Teams Contractor Buyer Relationship Specialty Start Date End Date Rina Solorio MD [address] [place] [address] PCP - General Family Medicine 12/15/15 documented as of this encounter
--- OUTSIDE RECORDS SUMMARY | 2024-12-12 10:23 | XMS_ITS | Clinical Summary ---
Author Organization [employer] Address [address] [place] [address] 7t [place] [address] Care Team Providers Care Cultured Marble Products Maker Name Role Phone Rina Solorio MD Primary Care Provider [phone] Allergies Active Allergy Reactions Criticality Noted Date [...] BLOOD SUGAR TWICE DAILY 11/12/19 23 Active cholecalcifero l (Vitamin D-3) 50 MCG (1999 UT) tablet Take 2,000 Units by mouth in the morning. 90 tablet 5 05/01/20 23 Active EPINEPHrine (EpiPen 2-Kenny) 0.3 MG/0.3ML injection syringeIndicat ions:Insect sting allergy, current reaction, accidental or unintentional, initial encounter Inject 0.3 mL (0.3 mg) as directed 1 (one) time if needed for anaphylaxis for up to 1 dose. Inject into upper leg. Call 911 after use. 1 each 09/05/19 25 Active ibuprofen 400 MG tablet Take 1 tablet (400 mg) by mouth every 6 (six) hours if needed for moderate pain, fever or headaches. 30 tablet 09/24/19 25 Active prednisoLONE acetate (Pred-Forte) 1 % ophthalmic suspension INSTILL 1 DROP IN THE LEFT EYE FOUR TIMES DAILY FOR 4 DAYS AFTER LASER THEN STOP 09/04/19 25 Active cyclobenzaprin e (Flexeril) 10 MG tablet Take 1 tablet (10 mg) by mouth 3 times daily for 5 days. 15 tablet 10/12/19 25 Active Ascorbic Acid (vitamin C) 250 MG tabletIndicati ons:Vitamin D deficiency,Iro n deficiency anemia due to chronic blood loss TAKE ONE TABLET EVERY DAY 30 tablet 2 12/04/19 25 Active Ferrous Sulfate (iron) 325 (65 Fe) MG tabletIndicati ons:Vitamin D deficiency,Iro n deficiency anemia due to chronic blood loss TAKE ONE TABLET TWICE DAILY 60 tablet 2 12/04/19 25 Active acetaminophen (Tylenol) 500 MG tablet Take 2 tablets (1,000 mg) by mouth every 6 (six) hours if needed for moderate pain or fever for up to 25 doses. 30 tablet 12/10/19 25 Active estradiol (Estrace) 0.1 MG/GM vaginal cream insert 1 g vaginally twice a week 42.5 g 3 12/13/19 25 Active cetirizine (ZyrTEC) 10 MG tablet Take 1 tablet (10 mg) by mouth Once per day. 90 tablet 3 12/13/19 25 026 Active metFORMIN, OSM, (Fortamet) 500 MG 24 hr tablet Take 1 tablet (500 mg) by mouth with evening meal. 30 tablet 3 12/13/19 25 026 Active metFORMIN, OSM, (Fortamet) 500 MG 24 hr tablet Take 1 tablet (500 mg) by mouth with evening meal. Do not crush, chew, or split. 30 tablet 3 05/01/20 23 025 Discontinued(R eorder (will not trigger notification to Pharmacy)) estradiol (Estrace) 0.1 MG/GM vaginal cream insert 1 g vaginally twice a week 42.5 g 3 05/23/20 025 Discontinued(R eorder (will not trigger notification to Pharmacy)) Ferrous Sulfate (iron) 325 (65 Fe) MG tabletIndicati ons:Vitamin D deficiency,Iro n deficiency anemia due to chronic blood loss TAKE ONE TABLET TWICE DAILY 60 tablet 5 12/29/19 24 025 Discontinued Ascorbic Acid (vitamin C) 250 MG tabletIndicati ons:Vitamin D deficiency,Iro n deficiency anemia due to chronic blood loss TAKE ONE TABLET DAILY 30 tablet 5 12/29/19 24 025 Discontinued cetirizine (ZyrTEC) 5 MG tablet Take 5 mg by mouth Once per day. 025 Discontinued(T herapy completed) fluconazole (Diflucan) 150 MG tablet TAKE 1 TABLET BY MOUTH ONCE FOR 1 DOSE. MAY REPEAT IN 3 DAYS IF NEEDED 05/23/20 025 Discontinued(T herapy completed) neomycin-polym yxin-dexAMETHa sone (Maxitrol) 3.5-59318-7.1 ophthalmic suspension INSTILL 1 DROP IN THE LEFT EYE THREE TIMES DAILY FOR ONE WEEK, THEN STOP. 06/24/20 025 Discontinued(T herapy completed) clotrimazole (Lotrimin) 1 % vaginal creamIndicatio ns:Vulvovagina l Candidiasis Insert one applicator per vagina at bedtime for 7 nights 45 g 07/18/20 025 Discontinued(T herapy completed) chlorhexidine (Peridex) 0.12 % solution Swish 15 mL morning and night for 1 minute. Spit, do not swallow. Do not eat or drink for 30 minutes following use. 473 mL 09/06/19 025 Discontinued(T herapy completed) Active Problems Problem Noted Date Diagnosed Date [...] improvement in [address] [facility] or ED Elevated blood pressure reading 12/07/2023 [...] vit C --to get [facility] -confirmed w px they dont have it ,if no better advised pt to f up w urologist for chronic cystitis Increased frequency of urination 07/27/2022 Knee pain 01/09/2018 Moderate anxiety 10/19/2016 Vitamin D deficiency 03/14/2016 Encounters Date Type Department Care Team Description 12/12/2024 9:00 AM EDT Office Visit [facility] MED & PEDS [address] [place] [address] Rina Solorio MD Iron deficiency anemia, unspecified iron deficiency anemia type (Primary Dx); Type 2 diabetes mellitus without complication, without long-term current use of insulin ([facility]) 12/12/2024 Travel 12/09/2024 8:40 AM EDT Office Visit [facility] [address] [place] [address] Yaw Jones MD Influenza-like symptoms (Primary Dx); Acute URI 12/09/2024 Travel 12/06/2024 11:00 AM EDT Office Visit [facility] ADULT DENTAL [address] [place] [address] Troy Walton DDS 11/30/2024 Refill [facility] MED & PEDS [address] [place] [address] Rina Solorio MD Vitamin D deficiency; Iron deficiency anemia due to chronic blood loss 11/12/2024 9:45 AM EDT Office Visit [facility] [address] [place] [address] Troy Walton DDS 10/25/2024 9:00 AM EDT Office Visit [facility] [address] [place] [address] Troy Walton DDBoyd 10/18/2024 Population Health Risk Score [facility] () Department [address] [place] [phone] Provider, Population Health Generic 10/11/2024 9:00 AM EST Office Visit [facility] [address] [place] [address] Troy Walton DDS 10/01/2024 9:00 AM EST Office Visit [facility] [address] [place] [address] Troy Walton DDS 09/24/2024 9:00 AM EST Office Visit [facility] [address] [address] Yaw Jones MD Left facial pain (Primary Dx) from Last 3 Months Immunizations Name Administration [...] Mass Index 28 12/12/2024 9:09 AM EDT Plan of Treatment Upcoming Encounters Date Type Department Care Team (Late st Contact Info) Description 03/14/2025 9:00 AM EDT Office Visit [facility] MED & PEDS [address] [place] [address] Rina Solorio MD [address] [place] [address] 05/01/2025 8:00 AM EDT Office Visit [facility] ADULT DENT[facility] [address] [place] [address] Ca, Carina [address] [place] [address] Health Maintenance Due Date Last Done Comments CT Colonography 1965 Depression Screening 1965 FIT DNA/Cologuard 1965 FIT 1965 FOBT 1965 Sigmoidoscopy 1965 Diabetes: Foot Exam 1975 Eye Exam 1975 Alcohol/Substance Use Screening 1977 Hepatitis B Vaccines (1 of 3 - 19+ 3-dose series) 1984 Pneumococcal Vaccine: 50+ Years (1 of 2 - PCV) 1984 Diabetes: Urine Protein Screening 04/02/2021 04/02/2020, 10/03/2019 COVID-19 Vaccine ( season) 2024 11/17/2021, 06/17/2021, 11/16/2020, Additional history exists Influenza Vaccine (#1) 2024 , 06/17/2021, 05/14/2020, Additional history exists DTaP/Tdap/Td Vaccines (2 - Td or Tdap) 08/26/2024 08/26/2014 Dental Oral Exam 01/21/2025 07/22/2024, , 09/11/2018, Additional history exists Dental Prophylaxis 01/21/2025 07/22/2024, 0 12/28/2021, 04/18/2019, Additional history exists Pap Smear 03/01/2025 03/01/2022 SDOH Screening 03/06/2025 03/06/2024 Diabetes: Hemoglobin A1C 06/14/2025 025, 09/05/2024, 03/06/2024, Additional history exists Lipid Panel 09/06/2025 09/06/2024, 01/0 12/2020, 05/15/2020, Additional history exists Dental X-Ray: Bitewings 09/07/2025 09/06/19, 08/27/2024, 07/22/2024, Additional history exists Tobacco Screening 12/09/2025 12/09/2024 Colonoscopy 12/16/2025 12/17/2015 Colorectal Cancer Screening 12/16/2025 Mammogram 09/10/2026 09/10/2024, 02/0 11/2024, 09/10/2024, Additional history exists Cervical Cancer Screening 03/01/2027 HPV/Cotest 03/01/2027 03/01/2022 Dental X-Ray: Full Mouth 10/02/2027 025, 07/22/2024, 09/11/2018, Additional history exists RSV Patients and Patients Aged 60 years [...] Name Priority Date/Time Associated Diagnosis Comments POCT GLUCOSE Routine 12/12/2024 9:11 AM EDT Type 2 diabetes mellitus without complication, without long-term current use of insulin ([facility]) POCT GLYCATED HEMOGLOBIN, TOTAL Routine 12/12/2024 9:11 AM EDT Type 2 diabetes mellitus without complication, without long-term current use of insulin ([facility]) POCT INFLUENZA B (ID NOW RAPID MOLECULAR) Routine 12/09/2024 8:52 AM EDT Acute URI POCT INFLUENZA A (ID NOW RAPID MOLECULAR) Routine 12/09/2024 8:52 AM EDT Acute URI POCT RAPID STREP A Routine 12/09/2024 8: 52 AM EDT Acute URI POCT RAPID COVID ANTIGEN Routine 12/09/2024 8:52 AM EDT Acute URI CASE PRESENTATION, DETAILED AND EXTENSIVE TREATMENT PLANNING Routine 12/06/2024 11:00 AM EDT 30,19,18 MANDIBULAR PARTIAL DENTURE - RESIN BASE (INCLUDING, RETENTIVE/CLASPING MATERIALS, RESTS, AND TEETH) Routine 12/06/2024 11:00 AM EDT WAX TRY IN Routine 11/12/2024 9:45 AM EDT BITE REGISTRATION Routine 10/25/2024 9:0 0 AM EDT NO CHARGE VISIT Routine 10/11/2024 9:00 AM EST CASE PRESENTATION, DETAILED AND EXTENSIVE TREATMENT PLANNING Routine 10/01/2024 9:00 AM EST PANORAMIC RADIOGRAPHIC IMAGE Routine 10/01/2024 9:00 AM EST LIMITED ORAL EVALUATION - PROBLEM FOCUSED Routine 10/01/2024 9:00 AM EST BI US BREAST LIMITED LEFT Routine 09/10/2024 Breast pain, left BITEWING - SINGLE RADIOGRAPHIC IMAGE Routine 09/06/2024 11:30 AM EST LIPID PANEL, STANDARD Routine 09/06/2024 8:08 AM EST Type 2 diabetes mellitus without complication, without long-term current use of insulin ([facility]) Dietary counseling Exercise counseling Atrophic vaginitis Acute vaginitis PROPHYLAXIS - ADULT Routine 07/22/2024 8 :00 AM EST COMPREHENSIVE ORAL EVALUATION - NEW OR ESTABLISHED PATIENT Routine 07/22/2024 8:00 AM EST THINPREP IMAGING PAP AND HPV MRNA E6/E7 WITH REFLEX TO HPV 16,18/45 Routine 03/01/2022 11:03 AM EDT ALBUMIN, RANDOM URINE W/CREATININE Routine 04/02/2020 8:42 AM EDT ZZZ HISTORICAL HEPATITIS C ANTIBODY RFLX Routine 10/03/2019 10:32 AM EST ZZZ HISTORICAL HIV AB/AG Routine 10/03/2019 10:32 AM EST COLONOSCOPY Routine 12/17/2015 from Last 3 Months or Most Recently Relevant to Health Maintenance Results * (ABNORMAL) POCT A1C (12/12/2024 9:11 AM EDT) Hemoglobin A1C 6.5(A) 4.0 - 6.0 % QC Media Lot # Comment:[id number] Lot# Expiration Date Comment:08/08/2026 Blood 12/12/2024 9:11 AM EDT Rina Solorio MD POINT OF CARE TEST ENTER/EDIT ORDERABLES Final Result * POCT glucose manually resulted (12/12/2024 9:11 AM EDT) [facility] Glucose Blood, POC 135 60 - 200 mg/dL QC Media Lot # Comment:[id number] Lot# Expiration Date Comment:02/06/2025 Blood Capillary blood specimen / Unknown 12/12/2024 9:11 AM EDT Rina Solorio MD POINT OF CARE TEST ENTER/EDIT ORDERABLES Final Result * Influenza B (ID NOW Rapid Molecular) (12/09/2024 8:52 AM EDT) [facility] Influenza B Negative Negative, Indeterminate [facility] Swab 12/09/2024 8:52 AM EDT Yaw Jones MD POINT OF CARE TEST ENTER/EDIT OR DERABLES Final Result Performing Organization Address [facility] de Phone Number [facility] [address] [place] [phone] * Influenza A (ID NOW Rapid Molecular) (12/09/2024 8:52 AM EDT) [facility] Influenza A Negative Negative, Indeterminate [facility] Swab 12/09/2024 8:52 AM EDT Yaw Jones MD POINT OF CARE TEST ENTER/EDIT OR DERABLES Final Result Performing Organization Address [facility] de Phone Number [facility] [address] [place] [phone] * POCT Rapid COVID Ag (12/09/2024 8:52 AM EDT) [facility] Rapid COVID Ag Negative [facility] Swab 12/09/2024 8:52 AM EDT us Yaw Jones MD POINT OF CARE TEST ENTER/EDIT OR DERABLES Final Result Performing Organization Address [facility] Co de Phone Number [facility] [address] [place] [address] [phone] * POCT rapid strep A manually resulted (12/09/2024 8:52 AM EDT) Pathologist [facility] Rapid Strep A Screen Negative Negative, None Detected [facility] Swab 12/09/2024 8:52 AM EDT Yaw Jones MD POINT OF CARE TEST ENTER/EDIT OR DERABLES Final Result [facility] [address] [place] [address] [phone] * BI US Breast Limited Left (09/10/2024) Anatomical Region Laterality Modality Breast Left Ultrasound Misty Krishna MD IMG US PROCEDURES Final Re sult * (ABNORMAL) Lipid Panel, Standard (09/06/2024 8:08 AM EST) Pathologist [facility] Triglycerides 89 <150 mg/dL [facility] Comment:Desirable Triglyceri de: less than 150 mg/dLBorderline High Triglyceride 150-199 mg/dLHigh Triglyceride: 200-499 mg/dLVery High Triglyceride: greater than or equal to 5OO mg/dL Cholesterol 159 <200 mg/dL [facility] Comment:Desirable Cholestero l: less than 200 mg/dLBorderline High Cholesterol: 200-239 mg/dLHigh Cholesterol: greater than 239 mg/dL LDL Cholesterol Calculated 102(H) <100 mg/dL [facility] Comment:Desirable LDL: less than 100 mg/dLNear Optimal/Above Optimal LDL: 110- 129 mg/dLBorderline High LDL: 130-159 mg/dLHigh LDL: 160-189 mg/dLVery High LDL: greater than or equal to 190 mg/dL HDL Cholesterol 40(L) >40 mg/dL [facility] Comment:Desirable HDL: great er than 40 mg/dL Note: This HDL assay may give artificially low results in patients with liver disease. Blood Venous blood specimen / Unknown 09/06/2024 8:08 AM EST 09/06/2024 11:44 AM EST us Rina Solorio MD LAB BLOOD ORDERABLES Final Re sult [facility] [address] [place] [address] [phone] * THINPREP TIS PAP AND HPV mRNA [...] has been evaluated with computer assisted technology. [facility] Cytotechnologis t: SEE COMMENT [facility] Comment: CMG, CT(ASCP) CT screening location: [address] ??[phone] HPV nRNA E6/E7 Not Detected Not Detected [facility] Comment: Methodology: Concrete Mixer Operator Helper-Mediated Amplification This assay detects E6/E7 viral messenger RNA (mRNA) from 14 high-risk HPV types (16,18,31,33,35,39,45,51,52,56,58,59,66,68). ? Cervical sources are required for HPV testing. If a vaginal source from a patient who has had a total hysterectomy with removal of cervix was ?? submitted, please contact the testing laboratory for alternative testing options. ?? For additional information, please refer to http://education.PoshVine/faq/MZL852h3 (This link if provided for information/ educational purposes only.) Interpretation/ Result: Negative for intraepithelial lesion or malignancy. [facility] LMP: [facility] Prev. BX: NONE [facility] Prev. PAP: NONE [facility] ON [facility] SOURCE: Cervix [facility] Statement Of Adequacy: SEE COMMENT [facility] Comment: Satisfactory for evaluation. Endocervical/transformation zone component present. 03/01/2022 11:0 3 AM EDT us Hannah Leyva CNM LAB PATHOLOGY ORDERABLES Final Result Performing Organization Address [facility] de Phone Number [facility] [address] * ALBUMIN, RANDOM URINE W/CREATININE (04/02/2020 8:42 AM EDT) Microalbumin Urine 0.5 See Note: mg/dL [facility] Comment: Reference Range: ?? Reference Range Not established Microalb/Creat Ratio 6 <30 mcg/mg creat [facility] Comment: ?? The ADA defines [...] Creatinine, Urine 84 20 - 275 mg/dL [facility] 04/02/2020 8:42 AM EDT us Rina Solorio MD LAB URINE ORDERABLES Final Re sult Performing Organization Address [facility] Phone Number [facility] [address] * HEPATITIS C ANTIBODY RFLX (10/03/2019 10:32 AM EST) HEPATITIS C ANTIBODY NONREACTIVE NONREACTIVE [facility] Comment: Antibodies to HCV not detected; does not exclude early acute HCV infection. 10/03/2019 10:3 2 AM EST us Historical Provider HISTORICAL/NON ORDERABLE LABS Final Result [facility] [address] [place] [address], * HIV AB/AG (10/03/2019 10:32 AM EST) [...] of detection of this assay. ?? The Jose Rodent Control Worker HIV Ag/Ab Combo assay result and supplemental assay results should be interpreted in conjunction with the patient's clinical presentation, history and other laboratory results. ??If the results are inconsistent with clinical evidence, additional testing is suggested to confirm the result. 10/03/2019 10:3 2 AM EST Historical Provider HISTORICAL/NON ORDERABLE LABS Final Result Performing Organization Address [facility] Co de Phone Number [facility] [address] [place] [address], * Hm Colonoscopy (12/17/2015) [facility] Colonoscopy Normal Normal Narrative Kendal Hollins - 12/17/2015 Recommended 10 year follow up Historical Provider HEALTH MAINTENANCE Final Result from Last 3 Months or Most Recently Relevant to Health Maintenance Insurance [id number] [facility] [employer] [place] AD[place] Care Teams Cultured Marble Products Maker Relationship Specialty Start Date End Date Rina Solorio MD [address] [place] [phone] PCP - General Family Medicine 12/15/15
--- OUTSIDE RECORDS SUMMARY | 2024-12-12 10:23 | XMS_ITS | Encounter Summary ---
Author Organization [employer] Address [address] [place] [address] Care Team Providers Care Substation Inspector Name Role Phone Rina Solorio MD Primary Care Provider [phone] Encounter Details Date Type Department Care Team (Late Contact Info) Description 06/13/2023 Abstract [facility] MEDICINE [address] [place] [address] Kendal Hollins Social History Tobacco Use Types [...] Description 03/14/2025 9:00 AM EDT Office Visit [facility] CHC MED & PEDS [address] [place] [address] Rina Solorio MD [address] [place] [address] 05/01/2025 8:00 AM EDT Office Visit [facility] ADULT DENTAL [address] [place] [address] Carina Penaloza [address] [place] [address] documented as of this encounter Procedures Procedure Name Priority Date/Time Associated Diagnosis Comments COLONOSCOPY Routine 12/17/2015 documented in this encounter Results * Colonoscopy (12/17/2015) Colonoscopy Normal Normal Narrative Kendal Hollins - 12/17/2015 Recommended 10 year follow up us Historical Provider HEALTH MAINTENANCE Final Result documented in this encounter Visit Diagnoses Not on filedocumented in this encounter Care Teams Substation Inspector Relationship Specialty Start Date End Date Rina Solorio MD [address] [place] [phone] PCP - General Family Medicine 12/15/15 documented as of this encounter
[2024-12-12 14:10] LABS: MANUAL DIFF FLAG NO
[2024-12-12 14:14] LABS: Basophils Percent Auto 0.3 % (0-2); Eosinophils Absolute Auto 0.1 X10*3/uL (0.0-0.4); Eosinophils Percent Auto 1.5 % (0-4); Hematocrit 33.9 % (37.0-47.0); Hemoglobin 11.1 g/dl (12.0-16.0); Imm Gran Abs Auto 0.02 X10*3/uL (0.00-0.03); Imm Gran Pct Auto 0.3 % (0.0-0.4); Lymphocytes Absolute Auto 1.7 X10*3/uL (1.2-4.9); Lymphocytes Percent Auto 28.4 % (20-40); Mean Corpuscular HGB Conc 32.7 g/dl (31.0-35.0); Mean Corpuscular Hemoglobin 27.5 pg (27.0-33.0); Mean Corpuscular Volume 84.1 fL (80.0-98.0); Mean Platelet Volume 10.3 fL (9.4-12.3); Monocytes Absolute Auto 0.3 X10*3/uL (0.1-1.2); Monocytes Percent Auto 4.5 % (2-11); Neutrophils Absolute Auto 3.8 x10*3/uL (2.0-8.3); Platelet Count 283 X10*3/uL (160-400); Red Blood Count 4.03 X10*6/uL (4.20-5.50); Red Cell Distribution Width 13.8 % (11.0-16.0); White Blood Count 5.8 X10*3/uL (4.8-10.8)
[2024-12-12 14:32] LABS: Iron 45 mcg/dL (30-160); Percent Iron Saturation 19 % (15-50); Total Iron Binding Capacity 236 mcg/dL (228-428); Unsaturated Iron Binding 191 ug/dL
[2024-12-12 14:46] LABS: Ferritin 146 ng/mL (10-250)
== END 2024-12-12 09:39 | disposition home or self-care (01) ==
LOC: HO.CHCLDS 09:38
PROVIDERS: Visit Provider Pediatrics
DX: D50.9 Iron deficiency anemia, unspecified (principal)
CPT/HCPCS: 36415; 82728; 83540; 85025

== ENCOUNTER 2025-01-21 16:24 | Outpatient (REF) | payer MEDICAID, SELFPAY ==
--- OUTSIDE RECORDS SUMMARY | 2025-01-21 18:35 | XMS_ITS | Encounter Summary ---
Author Organization [employer] [facility] Address [address] [place] [address] [place] [address] Care Team Providers Care Health Assessment And Treatment Teacher Name Role Phone Rina Solorio MD Primary Care Provider [phone] Encounter Details Date Type Department Care Team (Latest Contact Info) Description 12/28/2021 Abstract [facility] CONVERSIONS Dental, Provider, DDS Social History Tobacco [...] Description 03/14/2025 9:00 AM EDT Office Visit [facility] CH[facility] MED & PEDS [address] [place] [address] Rina Solorio MD [address] [place] [address] 05/01/2025 8:00 AM EDT Office Visit [facility] ADULT DENTAL [address] [place] [address] Ca, Carina [address] [place] [address] documented as of this encounter Visit Diagnoses Not on filedocumented in this encounter Care Teams Health Assessment And Treatment Teacher Relationship Specialty Start Date End Date Rina Solorio MD [address] [place] [address] PCP - General Family Medicine 12/15/15 documented as of this encounter
== END 2025-01-21 16:25 | disposition home or self-care (01) ==
LOC: HO.HHCLNP 16:24
PROVIDERS: Visit Provider Internal Medicine
DX: R39.9 Unspecified symptoms and signs involving the genitourinary system (principal)
CPT/HCPCS: 87086

== ENCOUNTER 2025-02-14 17:47 | Outpatient (REF) | payer MEDICAID, SELFPAY ==
--- OUTSIDE RECORDS SUMMARY | 2025-02-14 17:49 | XMS_ITS | Clinical Summary ---
Author Organization [facility] Address [address] [place] [address] Phone Care Team Providers Care Behavioral Health Counselor Name Role Phone Jadiel Daly MD Primary Care Provider [phone] Allergies Active Allergy Reactions Criticality Noted Date Comments Piperacillin-Tazobactam 01/24/2025 Medications lidocaine 4 % patch Apply 1 patch topically 1 (one) time each day. 30 each 5 02/24/20 25 Active methylPREDNISol one (MEDROL DOSPAK) 4 mg tablet Take 1 tablet by mouth as directed on the package. 21 tablet 5 01/31/20 25 Encounters Date Type Department Care Team Description 01/24/2025 7:41 PM EDT - 01/24/2025 9:37 PM EDT Emergency [facility] Emergency [address] [place] [address] Left sided sciatica (Primary Dx) Discharge Disposition: Home or Self Care from Last 3 Months Surgical History Surgery Date Site/Laterality Comments SECTION PROCEDURE: ID DELIVERY ONLY; COMMENT: x 5 OTHER SURGICAL HISTORY PROCEDURE: ID UNLISTED LAPAROSCOPY PROCEDURE UTERUS Medical History Medical [...] Value Date Recorded Sex Assigned at Female 09/06/2024 10:27 AM EST Legal Sex Female 2:11 AM EST Gender Identity Female 09/06/2024 10:27 AM EST Sexual Orientation Straight 09/06/2024 10 :27 AM EST Obstetrics History Para Term AB IAB SAB Ectopic Multiple Livin g Live Births 4 Last Filed Vital Signs Vital Sign Reading Time Taken Comments Blood Pressure 146/96 01/24/2025 8:14 PM EDT Pulse 88 01/24/2025 8:14 PM EDT Temperature 36.8 C (98.2 F) 01/24/2025 2:11 PM EDT Respiratory Rate 18 01/24/2025 8:14 PM EDT Oxygen Saturation 100% 01/24/2025 8:14 PM EDT Inhaled Oxygen Concentration - - Weight 60.8 kg (134 lb) 01/24/2025 2:11 PM EDT Height 152.4 cm (5') 01/24/2025 2:11 PM EDT Body Mass Index 26.17 01/24/2025 2:11 PM EDT Plan of Treatment Health Maintenance Due Date Last Done Comments Diabetes: Annual Foot Exam 1975 Diabetes: Annual Retina Eye Exam 1975 Hepatitis B Vaccines (1 of 3 - 19+ 3-dose series) 1984 Cervical Cancer Screening: HPV 1986 Pneumococcal Vaccine: 50+ Years (1 of 1 - PCV) 2015 Colorectal Cancer Screening: Colonoscopy 07/10/2022 Depression Screening 07/10/2022 HIV Screening 07/10/2022 Hepatitis C Screening 07/10/2022 Social Influencers of Health Screening 07/10/2022 COVID-19 Vaccine ( season) 2024 11/17/2021, 06/17/2021, 11/16/2020, Additional history exists DTaP,Tdap,and Td Vaccines (2 - Td or Tdap) 08/26/2024 08/26/2014 Diabetes: Annual Urine Albumin-Creatinine Ratio (uACR) 01/25/2025 Influenza Vaccine (#1) 2025 , 05/14/2020, 05/09/2018, Additional history exists Diabetes: Blood Sugar Control Test (HGBA1C) 06/14/2025 12/12/2024, 09/05/2024 Diabetes: Annual GFR (Glomerular Filtration Rate) 09/06/2025 09/06/2024 Breast Cancer Screening 09/10/2026 09/10/19 25, 04/29/2024, 04/24/2023, Additional history exists Cholesterol Screening (Lipid Panel) 09/06/2029 09/06/2024 RSV Immunization Adult Patients (1 - 1-dose 75+ series) 2040 Zoster Vaccines Completed 06/02/2020, 04/02/2020 HIB Vaccines [...] patient's age to complete this topic Meningococcal B Vaccine Aged Out No l onger eligible based on patient's age to complete this topic RSV Immunization Patients Under 20 months Aged Out No longer eligible based on patient's age to complete this topic Varicella Vaccines Aged Out No longer eligible based on patient's age to complete this topic Procedures Procedure Name Priority Date/Time Associated Diagnosis Comments MG MAMMO DIGITAL DIAGNOSTIC W KALE LEFT Routine 09/10/2024 9:43 AM EST Mastodynia from Last 3 Months or Most Recently Relevant to Health Maintenance Results * MG Mammo Digital Diagnostic w Kale Left (09/10/2024 9:43 AM EST) Anatomical Region Laterality Modality Breast Left Mammography 09/10/2024 9:39 AM EST Impressions 09/10/2024 9:49 AM EST No evidence of breast malignancy. No correlate to patient's area of concern. Patient was instructed to follow-up with her referring physician. BI-RADS CATEGORY: Mammography: 1 - NEGATIVE Ultrasound: 1 - NEGATIVE RECOMMENDATIONS: Return to annual mammography. Mammo Location: [facility], [address] [place] [address], [id number], . -------- FINAL REPORT -------- Dictated By: Faiza Padgett Dictated Date: 09/10/2024 09:39 ET Assigned Physician: Faiza Padgett Reviewed and Electronically Signed By: Faiza Padgett Signed Date: 09/10/2024 09:49 ET Workstation ID: [id number] Transcribed By: Self Edit Transcribed Date: 09/10/2024 09:39 ET Narrative 09/10/2024 9:49 AM EST CLINICAL: 59 years old, Female, patient presents for evaluation of left breast pain. COMPARISON: 04/27/2024, 04/24/2023, 12/20/2022, 04/20/2022, 04/14/2021 FINDINGS: MAMMOGRAPHY TECHNIQUE: Left MLO and CC views were obtained digitally with 3-D mammogram (digital breast tomosynthesis). Computer-aided detection was utilized in evaluation of this exam (CAD). There is no evidence of suspicious mass or architectural distortion. No worrisome calcifications are evident. There has been no significant change from prior exam(s). No correlate to patient's area of pain in the lateral breast. BREAST DENSITY: B - There are scattered areas of fibroglandular density. ULTRASOUND TECHNIQUE: Targeted ultrasound evaluation of the left breast was performed. There is no evidence of morphologically suspicious mass. No cyst is visualized. No correlate to patient's area of concern. Procedure Note Faiza Padgett MD - 09/10/2024 CLINICAL: 59 years old, Female, patient presents for evaluation of leftbreast pain. COMPARISON: 04/27/2024, 04/24/2023, 12/20/2022, 04/20/2022, 04/14/2021 FINDINGS: MAMMOGRAPHY TECHNIQUE: Left MLO and CC views were obtained digitally with 3-Dmammogram (digital breast tomosynthesis). Computer-aided detection wasutilized in evaluation of this exam (CAD). There is no evidence of suspicious mass or architectural distortion. Noworrisome calcifications are evident. There has been no significantchange from prior exam(s). No correlate to patient's area of pain inthe lateral breast. BREAST DENSITY: B - There are scattered areas of fibroglandular density. ULTRASOUND TECHNIQUE: Targeted ultrasound evaluation of the left breast wasperformed. There is no evidence of morphologically suspicious mass. No cyst isvisualized. No correlate to patient's area of concern. IMPRESSION: No evidence of breast malignancy. No correlate to patient's area ofconcern. Patient was instructed to follow-up with her referringphysician. BI-RADS CATEGORY: Mammography: 1 - NEGATIVE Ultrasound: 1 - NEGATIVE RECOMMENDATIONS: Return to annual mammography. Mammo Location: [facility], [address] [place] [address], [id number], . -------- FINAL REPORT -------- Dictated By: Faiza Padgett Dictated Date: 09/10/2024 09:39 ET Assigned Physician: Faiza Padgett Reviewed and Electronically Signed By: Faiza Padgett Signed Date: 09/10/2024 09:49 ET Workstation ID: [id number] Transcribed By: Self Edit Transcribed Date: 09/10/2024 09:39 ET Misty Krishna MD IMG BI PROCEDURES Final Re sult from Last 3 Months or Most Recently Relevant to Health Maintenance Insurance MEDICAID - [place] Advance Directives Documents on File Type Date Recorded Patient Clinician Oncology Expl anation Health Care Decision (hx) 02/27/2013 [...] (hx) 02/20/2013 AD BRAND DIRECTIVE Care Teams Behavioral Health Counselor Relationship Specialty Start Date End Date Jadiel Daly MD [address] [place] [address] PCP - General Internal Medicine 03/09/13
== END 2025-02-14 17:48 | disposition home or self-care (01) ==
LOC: HO.HHCLNP 17:47
PROVIDERS: Visit Provider General Practice
DX: R39.9 Unspecified symptoms and signs involving the genitourinary system (principal)
CPT/HCPCS: 87086

== ENCOUNTER 2025-03-14 09:19 | Outpatient (REF) | payer MEDICAID, SELFPAY ==
--- OUTSIDE RECORDS SUMMARY | 2025-03-14 09:25 | XMS_ITS | Clinical Summary ---
Author Organization [employer] Address [address] [place] [address] [address] [place] [address] Care Team Providers Care District Sales Representative Name Role Phone Rina Solorio MD Primary Care Provider [phone] Allergies Active Allergy Reactions Criticality Noted Date Comments Ondansetron Hives 10/19/2016 Piperacillin 01/05/2013 Hx that pt took cephalosporin in the past with no problem Piperacillin-Tazobactam In Dex 02/02/2023 Other reaction(s): throat swelling Shellfish Allergy Itching Low 07/27/2022 Other reaction(s): throat swells Medications Alcohol Swabs (SM Alcohol Prep) 70 % pads USE EVERY DAY 022 Active lidocaine-prilo evangelina (Emla) 2.5-2.5 % cream Apply topically at bed time. 020 Active simethicone (Mylicon,Gas-X) 180 MG capsule take one capsule up to every 6 hours PRN 022 Active FREESTYLE LITE test strip TEST BLOOD SUGAR TWICE DAILY 50 strip 11 023 Active TRUEplus Lancets 33G misc TEST BLOOD SUGAR TWICE DAILY 100 each 11 023 Active TRUEplus Lancets 33G misc TEST BLOOD SUGAR TWICE DAILY 023 Active cholecalciferol (Vitamin D-3) 50 MCG (2000 UT) tablet Take 2,000 Units by mouth in the morning. 90 tablet 5 023 Active EPINEPHrine (EpiPen 2-Kenny) 0.3 MG/0.3ML injection syringeIndicati ons:Insect sting allergy, current reaction, accidental or unintentional, initial encounter Inject 0.3 mL (0.3 mg) as directed 1 (one) time if needed for anaphylaxis for up to 1 dose. Inject into upper leg. Call 911 after use. 1 each Active prednisoLONE acetate (Pred-Forte) 1 % ophthalmic suspension INSTILL 1 DROP IN THE LEFT EYE FOUR TIMES DAILY FOR 4 DAYS AFTER LASER THEN STOP Active cyclobenzaprine (Flexeril) 10 MG tablet Take 1 tablet (10 mg) by mouth 3 times daily for 5 days. 15 tablet Active estradiol (Estrace) 0.1 MG/GM vaginal cream insert 1 g vaginally twice a week 42.5 g 3 Active cetirizine (ZyrTEC) 10 MG tablet Take 1 tablet (10 mg) by mouth Once per day. 90 tablet 3 025 2025 Active Ferrous Sulfate (iron) 325 (65 Fe) MG tabletIndicatio ns:Vitamin D deficiency,Iron deficiency anemia due to chronic blood loss Take 1 tab orally daily with 1 oz of orange juice 90 tablet 2 Active Ketotifen Fumarate 0.035 % solution Administer 1 drop into affected eye(s) if needed in the morning and at bedtime (eye redness, itching). For 7 days 10 mL Active cyclobenzaprine (Flexeril) 5 MG tabletIndicatio ns:Acute right-sided low back pain with right-sided sciatica Take 1 tablet (5 mg) by mouth 3 times daily for 10 days. 30 tablet Active polyethylene glycol, PEG, 3350 (MiraLax) 17 GM/SCOOP powderIndicatio ns:Slow transit constipation Take 17 g by mouth Once per day. 527 g 2 025 2024 Active metFORMIN XR (Glucophage-XR) 500 MG 24 hr tablet TAKE 1 TABLET BY MOUTH EVERY DAY IN THE EVENING WITH DINNER Active acetaminophen (Tylenol) 500 MG tablet Take 2 tablets (1,000 mg) by mouth every 6 (six) hours if needed for moderate pain or fever. 60 tablet 1 025 2025 Active fluticasone (Flonase) 50 MCG/ACT nasal spray Administer 2 sprays into each nostril Once per day. Shake gently. Before first use, prime pump. After use, clean tip and replace cap. 16 g 3 2025 Active ibuprofen 600 MG tablet Take 1 tablet (600 mg) by mouth every 6 (six) hours if needed for mild pain. 40 tablet 1 2025 Active Diclofenac Sodium 1 % gel Apply 2 g topically if needed in the morning, at noon, in the evening, and at bedtime (pain). 150 g 3 Active Ascorbic Acid (vitamin C) 250 MG tabletIndicatio ns:Vitamin D deficiency,Iron deficiency anemia due to chronic blood loss TAKE ONE TABLET BY MOUTH ONCE DAILY 90 tablet 1 Active metFORMIN XR (Glucophage-XR) 500 MG 24 hr tablet Take 1 tablet (500 mg) by mouth with evening meal. 90 tablet 2 Active Ascorbic Acid (vitamin C) 250 MG tabletIndicatio ns:Vitamin D deficiency,Iron deficiency anemia due to chronic blood loss TAKE ONE TABLET EVERY DAY 30 tablet 2 2024 Discontinued acetaminophen (Tylenol) 500 MG tablet Take 2 tablets (1,000 mg) by mouth every 6 (six) hours if needed for moderate pain or fever for up to 25 doses. 30 tablet 025 2024 Discontinued(R eorder (will not trigger notification to Pharmacy)) metFORMIN, OSM, (Fortamet) 500 MG 24 hr tablet Take 1 tablet (500 mg) by mouth with evening meal. 30 tablet 3 025 2024 Discontinued ibuprofen 400 MG tablet Take 1 tablet (400 mg) by mouth every 6 (six) hours if needed for moderate pain, fever or headaches. 30 tablet 2024 Discontinued(D ose adjustment) erythromycin (Romycin) 5 MG/GM ophthalmic ointment Apply to affected eye(s) 4 times daily for 10 days. Apply Amount per Dose: 0.5 inch (~1 cm) per dose. 3.5 g 3 025 2024 methylPREDNISol one (Medrol Dospak) 4 MG tablets TAKE 1 TABLET BY MOUTH DIRECTED ON THE PACKAGE. 025 2024 Discontinued(D ose adjustment) methylPREDNISol one (Medrol Dospak) 4 MG tablets Follow schedule on package instructions 21 tablet 025 2024 metFORMIN XR (Glucophage-XR) 500 MG 24 hr tablet TAKE 1 TABLET BY MOUTH EVERY DAY IN THE EVENING WITH DINNER 90 tablet 025 2024 Discontinued(R eorder (will not trigger notification to Pharmacy)) Active Problems Problem Noted Date Diagnosed Date Acute bacterial conjunctivitis of left eye 02/14 Slow transit constipation 01/21/2025 Assessment & Plan (01/21/2025 12:59 PM EDT): Drink plenty of water, eat more fiber I prescribed miralax PRN Acute right-sided low back pain with right-sided sciatica 01/21/2025 Assessment & Plan (01/21/2025 1:00 PM EDT): Apply heat on affected area Flexeril prescribed patient is aware of side effects somnolence Acetaminophen as needed UTI symptoms 01/21/2025 Assessment & Plan (01/21/2025 1:01 PM EDT): Advised to drink plenty of water and do not hold the urine UA and culture done patient will be contacted with results Macrobid prescribed Breast pain, left 08/27/2024 Assessment & Plan (08/27/2024 2:36 PM EST): Breast pain in left lateral breast x2 weeks. Normal mammogram in 04/2024. -ordered repeat mammogram 08/27/24 -ordered US of left breast tissue 08/27/24 Glaucoma suspect 03/06/2024 Musculoskeletal pain 01/08/2024 Assessment & Plan (01/08/2024 10:55 AM EDT): -likely muscle strain -start cyclobenzaprine 5 mg TID and ibuprofen 600 mg QID as needed -advised gentle massage with bengay and daily stretching -follow-up PCP if symptoms worsen or no improvement despite intervention Elevated blood pressure reading 12/07/2023 Assessment & Plan (12/07/2023 4:16 PM EDT): Noted mild elevated BP today ,possible reactive to current infection -f BP w PCP in 6 weeks Gastroesophageal reflux disease 03/30/2023 Pelvic pain in female 03/30/2023 Epigastric pain 03/30/2023 Cystitis 07/27/2022 Assessment & Plan (03/28/2024 9:46 [...] vit C --to get D mannose [facility] -confirmed w px they dont have it ,if no better advised pt to f up w urologist for chronic cystitis Moderate anxiety 10/19/2016 Vitamin D deficiency 03/14/2016 Resolved Problems Problem Noted Date Diagnosed Date Resolved Date Vaginal candidiasis 07/18/2024 02/15/20 25 Assessment & Plan (07/18/2024 9:33 AM EST): -Wet prep with DAVID significant for budding yeast. -Candidiasis prevention discussed. -Sent UA and culture. -Sent BV panel. -ER precautions discussed. -prescribed Clortrimazole cream. Preseptal cellulitis 12/07/2023 025 Assessment & Plan (12/07/2023 4:16 PM EDT): [...] in [address] [facility] or ED Straining during bowel movements 03/30/2023 02/14/2025 Dysuria 07/29/2022 02/14/2025 Assessment & Plan (09/30/2023 8:10 PM EST): [...] and f/u culture results Acute vaginitis 07/27/2022 02/14/2025 Assessment & Plan (03/30/2023 9:13 AM EDT): [...] her request, but followup with sureswab results. Increased frequency of urination 07/27/2022 02/14/2025 Knee pain 01/09/2018 02/14/2025 Encounters Date Type Department Care Team Description 03/14/2025 9:00 AM EDT Office Visit [facility] [address] [place] [address] Rina Solorio MD Type 2 diabetes mellitus without complication, without long-term current use of insulin ([facility]) (Primary Dx); Iron deficiency anemia, unspecified iron deficiency anemia type 03/14/2025 Travel 03/05/2025 Refill [facility] [address] [place] [address] Rina Solorio MD 02/26/2025 Refill [facility] [address] [place] [address] Rina Solorio MD Vitamin D deficiency; Iron deficiency anemia due to chronic blood loss 02/21/2025 8:40 AM EDT Office Visit [facility] [address] [place] [phone] Adrienne Nava DO Left buttock pain (Primary Dx); Viral URI 02/14/2025 9:40 AM EDT Office Visit [facility] [address] [place] [phone] Marilu Farmer MD Acute bacterial conjunctivitis of left eye (Primary Dx); UTI symptoms 02/14/2025 Travel 01/21/2025 11:20 AM EDT Office Visit [facility] [address] [address] Nikki Epstein MD UTI symptoms; Slow transit constipation; Acute right-sided low back pain with right-sided sciatica 01/21/2025 Travel 01/06/2025 8:40 AM EDT Office Visit [facility] [address] [place] [phone] Yaw Jones MD Influenza-like symptoms (Primary Dx); Acute conjunctivitis of both eyes, unspecified acute conjunctivitis type; Elevated blood pressure reading; Viral URI 01/06/2025 Travel 12/16/2024 Telephone [facility] [address] [place] [address] Rina Solorio MD Results 12/13/2024 Orders Only [facility] [address] [place] [address] Rina Solorio MD Vitamin D deficiency; Iron deficiency anemia due to chronic blood loss 12/12/2024 9:00 AM EDT Office Visit [facility] [address] [place] [address] Rina Solorio MD Iron deficiency anemia, unspecified iron deficiency anemia type (Primary Dx); Type 2 diabetes mellitus without complication, without long-term current use of insulin ([facility]) 12/12/2024 Travel from Last 3 Months Immunizations Immunization Administration Dates Next Due Influenza injectable quadriv [...] Sign Reading Time Taken Comments Blood Pressure 132/84 03/14/2025 8:46 AM EDT Pulse 78 03/14/2025 8:46 AM EDT Temperature 36.5 C (97.7 F) 03/14/2025 8:46 AM EDT Respiratory Rate 20 03/14/2025 8:46 AM EDT Oxygen Saturation 98% 03/14/2025 8:46 AM EDT Inhaled Oxygen Concentration - - Weight 63.1 kg (139 lb 3.2 oz) 03/14/2025 8:46 A M EDT Height 149.9 cm (4' 11 ) 03/14/2025 8:46 AM EDT Body Mass Index 28.11 03/14/2025 8:46 AM EDT Plan of Treatment Upcoming Encounters Date Type Department Care Team (Late st Contact Info) Description 05/01/2025 8:00 AM EDT Office Visit [facility] [address] [place] [address] Ca, Carina [address] [place] [address] Health Maintenance Due Date Last Done Comments CT Colonography 1965 Depression Screening 1965 FIT DNA/Cologuard 1965 FIT 1965 FOBT 1965 Sigmoidoscopy 1965 Disability Screening 1965 Diabetes: Foot Exam 1975 Eye Exam 1975 Alcohol/Substance Use Screening 1977 Hepatitis B Vaccines (1 of 3 - 19+ 3-dose series) 1984 Pneumococcal Vaccine: 50+ Years (1 of 2 - PCV) 1984 Diabetes: Urine Protein Screening 04/02/2021 04/02/2020, 10/03/2019 COVID-19 Vaccine ( season) 2024 11/17/2021, 06/17/2021, 11/16/2020, Additional history exists DTaP/Tdap/Td Vaccines (2 - Td or Tdap) 08/26/2024 08/26/2014 Dental Oral Exam 01/21/2025 07/22/2024, , 09/11/2018, Additional history exists Dental Prophylaxis 01/21/2025 07/22/2024, 0 12/28/2021, 04/18/2019, Additional history exists SDOH Screening 03/06/2025 03/06/2024 Influenza Vaccine (#1) 2025 , 06/17/2021, 05/14/2020, Additional history exists Lipid Panel 09/06/2025 09/06/2024, 01/0 12/2020, 05/15/2020, Additional history exists Dental X-Ray: Bitewings 09/07/2025 09/06/19 25, 08/27/2024, 07/22/2024, Additional history exists Diabetes: Hemoglobin A1C 09/14/2025 025, 12/12/2024, 09/05/2024, Additional history exists Colonoscopy 12/16/2025 12/17/2015 Colorectal Cancer Screening 12/16/2025 Tobacco Screening 02/14/2026 02/14/2025 Mammogram 09/10/2026 09/10/2024, 02/0 11/2024, 09/10/2024, Additional history exists Cervical Cancer Screening 03/01/2027 HPV/Cotest 03/01/2027 03/01/2022 Pap Smear 03/01/2027 03/01/2022 Dental X-Ray: Full Mouth 10/02/2027 [...] Diagnosis Comments POCT GLYCATED HEMOGLOBIN, TOTAL Routine 03/14/2025 8:59 AM EDT Type 2 diabetes mellitus without complication, without long-term current use of insulin ([facility]) POCT GLUCOSE Routine 03/14/2025 8:59 AM EDT Type 2 diabetes mellitus without complication, without long-term current use of insulin ([facility]) POCT INFLUENZA B (ID NOW RAPID MOLECULAR) Routine 02/21/2025 9:05 AM EDT Viral URI POCT INFLUENZA A (ID NOW RAPID MOLECULAR) Routine 02/21/2025 9:05 AM EDT Viral URI POCT RAPID STREP A Routine 02/21/2025 9: 05 AM EDT Viral URI POCT RAPID COVID ANTIGEN Routine 02/21/2025 9:05 AM EDT Viral URI XR HIP 2 OR 3 VIEWS LEFT Routine 02/21/2025 Left buttock pain XR LUMBAR SPINE 2-3 VIEWS Routine 02/21/2025 Left buttock pain CULTURE, URINE, ROUTINE Routine 02/14/2025 11:50 AM EDT UTI symptoms POCT URINALYSIS DIPSTICK Routine 02/14/2025 9:36 AM EDT UTI symptoms CULTURE, URINE, ROUTINE Routine 01/21/2025 11:32 AM EDT UTI symptoms POCT URINALYSIS DIPSTICK Routine 01/21/2025 11:31 AM EDT UTI symptoms POCT INFLUENZA B (ID NOW RAPID MOLECULAR) Routine 01/06/2025 8:55 AM EDT Viral URI POCT INFLUENZA A (ID NOW RAPID MOLECULAR) Routine 01/06/2025 8:55 AM EDT Viral URI POCT RAPID STREP A Routine 01/06/2025 8: 55 AM EDT Viral URI POCT RAPID COVID ANTIGEN Routine 01/06/2025 8:55 AM EDT Viral URI FERRITIN Routine 12/12/2024 9:40 AM EDT Iron deficiency anemia, unspecified iron deficiency anemia type IRON AND TOTAL IRON BINDING CAPACITY Routine 12/12/2024 9:40 AM EDT Iron deficiency anemia, unspecified iron deficiency anemia type CBC WITH AUTO DIFFERENTIAL Routine 12/12/2024 9:40 AM EDT Iron deficiency anemia, unspecified iron deficiency anemia type POCT GLUCOSE Routine 12/12/2024 9:11 AM EDT Type 2 diabetes mellitus without complication, without long-term current use of insulin ([facility]) POCT GLYCATED HEMOGLOBIN, TOTAL Routine 12/12/2024 9:11 AM EDT Type 2 diabetes mellitus without complication, without long-term current use of insulin ([facility]) PANORAMIC RADIOGRAPHIC IMAGE Routine 10/01/2024 9:00 AM EST BI US BREAST LIMITED LEFT Routine 09/10/2024 Breast pain, left BITEWING - SINGLE RADIOGRAPHIC IMAGE Routine 09/06/2024 11:30 AM EST LIPID PANEL, STANDARD Routine 09/06/2024 8:08 AM EST Type 2 diabetes mellitus without complication, without long-term current use of insulin ([facility]) Dietary counseling Exercise counseling Atrophic vaginitis Acute vaginitis PROPHYLAXIS - ADULT Routine 07/22/2024 8 :00 AM EST COMPREHENSIVE ORAL EVALUATION - NEW OR ESTABLISHED PATIENT Routine 07/22/2024 8:00 AM EST THINPREP IMAGING PAP AND HPV MRNA E6/E7 WITH REFLEX TO HPV 16,18/45 Routine 03/01/2022 11:03 AM EDT ALBUMIN, RANDOM URINE W/CREATININE Routine 04/02/2020 8:42 AM EDT [facility] HISTORICAL HEPATITIS C ANTIBODY RFLX Routine 10/03/2019 10:32 AM EST [facility] HISTORICAL HIV AB/AG Routine 10/03/2019 10:32 AM EST COLONOSCOPY Routine 12/17/2015 from Last 3 Months or Most Recently Relevant to Health Maintenance Results * (ABNORMAL) POCT HGB A1C (03/14/2025 8:59 AM EDT) Only the most recent of2 resultswithin the time period is included. Hemoglobin A1C 6.9(A) 4.0 - 5.7 % Blood 03/14/2025 8:59 AM EDT us Rina Solorio MD POINT OF CARE TEST ENTER/EDIT ORDERABLES Final Result * POCT Glucose (03/14/2025 8:59 AM EDT) Only the most recent of2 resultswithin the time period is included. Glucose Blood, POC 127 60 - 200 mg/dL Blood Capillary blood specimen / Unknown 03/14/2025 8:59 AM EDT us Rina Solorio MD POINT OF CARE TEST ENTER/EDIT ORDERABLES Final Result * Influenza B (ID NOW Rapid Molecular) (02/21/2025 9:05 AM EDT) Only the most recent of2 resultswithin the time period is included. Influenza B Negative Negative, Indeterminate [facility] Swab 02/21/2025 9:05 AM EDT Adrienne Nava DO POINT OF CARE TEST ENTER/DARCI T ORDERABLES Final Result Performing Organization Address [facility]/ZIP Co de Phone Number [facility] [address] [place] [phone] * Influenza A (ID NOW Rapid Molecular) (02/21/2025 9:05 AM EDT) Only the most recent of2 resultswithin the time period is included. Influenza A Negative Negative, Indeterminate [facility] Swab 02/21/2025 9:05 AM EDT Adrienne Nava DO POINT OF CARE TEST ENTER/DARCI T ORDERABLES Final Result Performing Organization Address [facility] Co de Phone Number [facility] [address] [place] [phone] * POCT Rapid COVID Ag (02/21/2025 9:05 AM EDT) Only the most recent of2 resultswithin the time period is included. Rapid COVID Ag Negative [facility] Swab 02/21/2025 9:05 AM EDT Adrienne Nava DO POINT OF CARE TEST ENTER/DARCI T ORDERABLES Final Result Performing Organization Address [facility] Co de Phone Number [facility] [address] [place] [phone] * POCT rapid strep A manually resulted (02/21/2025 9:05 AM EDT) Only the most recent of2 resultswithin the time period is included. Rapid Strep A Screen Negative Negative, None Detected [facility] Swab 02/21/2025 9:05 AM EDT Adrienne Nava DO POINT OF CARE TEST ENTER/DARCI T ORDERABLES Final Result Performing Organization Address [facility] Co de Phone Number [facility] [address] [place] [phone] * XR Hip 2 or 3 Views Left (02/21/2025) Anatomical Region Laterality Modality Lower Extremities, Hip Left Radiograp hic Imaging Adrienne Nava DO IMG XR PROCEDURES Final Resu lt * XR Lumbar Spine 2-3 Views (02/21/2025) Anatomical Region Laterality Modality Spine, L-spine Radiographic Sheryl ging Adrienne Nava DO IMG XR PROCEDURES Final Resu lt * Culture, Urine, Routine (02/14/2025 11:50 AM EDT) Only the most recent of2 resultswithin the time period is included. Urine Urine specimen obtained by clean catch procedure / Unknown 02/14/2025 11:50 AM EDT 02/14/2025 5:48 PM EDT Comment:UACC Narrative [facility] - 02/16/2025 1:10 PM EDT Urine Culture No growth. Specimen Source: Urine clean catch Marilu Farmer MD LAB MICROBIOLOGY - GENERAL ORD ERABLES Final Result Performing Organization Address [facility] Co de Phone Number [facility] [address] [place] [phone] * (ABNORMAL) POCT Urinalysis (02/14/2025 9:36 AM EDT) Only the most recent of2 resultswithin the time period is included. Color, UA Yellow Clarity, UA Clear Glucose, UA Trace Comment:100mg Bilirubin, UA Negative Ketones, UA Negative Spec Grav, UA 1.015 Blood, UA Negative Negative, None Detected pH, UA 5.5 Protein, UA Negative Urobilinogen, UA 0.2 Leukocytes, UA Negative Negative, Rare, Trace Nitrite, UA Negative Negative, None Detected Appearance, UA clear QC Media Lot # [id number] Lot# Expiration Date [id number] Urine 02/14/2025 9:36 AM EDT Marilu Farmer MD POINT OF CARE TEST ENTER/EDIT ORDERABLES Final Result * (ABNORMAL) CBC auto differential (12/12/2024 9:40 AM EDT) Pathologist [facility] White Blood Count 5.8 4.8 - 10.8 X10*3/uL [facility] Red Blood Count 4.03(L) 4.20 - 5.50 X10*6/uL [facility] Hemoglobin 11.1(L) 12.0 - 16.0 g/dl [facility] Hematocrit 33.9(L) 37.0 - 47.0 % [facility] Mean Corpuscular Volume 84.1 80.0 - 98.0 fL [facility] Mean Corpuscular Hemoglobin 27.5 27.0 - 33.0 pg [facility] Mean Corpuscular HGB Conc 32.7 31.0 - 35.0 g/dl [facility] Red Cell Distribution Width 13.8 11.0 - 16.0 % [facility] Platelet Count 283 160 - 400 X10*3/uL [facility] Mean Platelet Volume 10.3 9.4 - 12.3 fL [facility] Neutrophils Percent Auto 65.0 45 - 73 % [facility] Imm Gran Pct Auto 0.3 0.0 - 0.4 % [facility] Lymphocytes Percent Auto 28.4 20 - 40 % [facility] Monocytes Percent Auto 4.5 2 - 11 % [facility] Eosinophils Percent Auto 1.5 0 - 4 % [facility] Basophils Percent Auto 0.3 0 - 2 % [facility] NRBC Pct Auto 0.0 0.0 - 0.2 /100WBC [facility] Neutrophils Absolute Auto 3.8 2.0 - 8.3 x10*3/uL [facility] Imm Gran Abs Auto 0.02 0.00 - 0.03 X10*3/uL [facility] Lymphocytes Absolute Auto 1.7 1.2 - 4.9 X10*3/uL [facility] Monocytes Absolute Auto 0.3 0.1 - 1.2 X10*3/uL [facility] Eosinophils Absolute Auto 0.1 0.0 - 0.4 X10*3/uL [facility] Basophils Absolute Auto 0.0 0.0 - 0.2 X10*3/uL [facility] NRBC Abs Auto 0.000 0.0 - 0.012 X10*3/uL [facility] Blood Venous blood specimen / Unknown 12/12/2024 9:40 AM EDT 12/12/2024 2:07 PM EDT us Rina Solorio MD LAB BLOOD ORDERABLES Final Re sult Performing Organization Address City/[facility] Co de Phone Number [facility] [address] [place] [phone] * Iron And Total Iron Binding Capacity (12/12/2024 9:40 AM EDT) Iron 45 30 - 160 mcg/dL [facility] Total Iron Binding Capacity 236 228 - 428 mcg/dL [facility] Percent Iron Saturation 19 15 - 50 % [facility] Unsaturated Iron Binding 191 ug/dL [facility] Blood Venous blood specimen / Unknown 12/12/2024 9:40 AM EDT 12/12/2024 2:07 PM EDT Rina Solorio MD LAB BLOOD ORDERABLES Final Re sult [facility] [address] [place] [phone] [phone] * Ferritin (12/12/2024 9:40 AM EDT) Ferritin 146 10 - 250 ng/mL [facility] Blood Venous blood specimen / Unknown 12/12/2024 9:40 AM EDT 12/12/2024 2:07 PM EDT us Rina Solorio MD LAB BLOOD ORDERABLES Final Re sult Performing Organization Address [facility] Co de Phone Number [facility] [address] [place] [phone] * BI US Breast Limited Left (09/10/2024) Anatomical Region Laterality Modality Breast Left Ultrasound us Misty Krishna MD IMG US PROCEDURES Final Re sult * (ABNORMAL) Lipid Panel, Standard (09/06/2024 8:08 AM EST) Triglycerides 89 <150 mg/dL [facility] Comment:Desirable Triglyceri de: less than 150 mg/dLBorderline High Triglyceride 150-199 mg/dLHigh Triglyceride: 200-499 mg/dLVery High Triglyceride: greater than or equal to 5OO mg/dL Cholesterol 159 <200 mg/dL [facility] Comment:Desirable Cholestero l: less than 200 mg/dLBorderline High Cholesterol: 200-239 mg/dLHigh Cholesterol: greater than 239 mg/dL LDL Cholesterol Calculated 102(H) <100 mg/dL [facility] Comment:Desirable LDL: less than 100 mg/dLNear Optimal/Above Optimal LDL: 110- 129 mg/dLBorderline High LDL: 130-159 mg/dLHigh LDL: 160-189 mg/dLVery High LDL: greater than or equal to 190 mg/dL HDL Cholesterol 40(L) >40 mg/dL [facility] LABS Comment:Desirable HDL: great er than 40 mg/dL Note: This HDL assay may give artificially low results in patients with liver disease. Blood Venous blood specimen / Unknown 09/06/2024 8:08 AM EST 09/06/2024 11:44 AM EST us Rina Solorio MD LAB BLOOD ORDERABLES Final Re sult [facility] [address] [place] [address] [phone] * THINPREP TIS PAP AND HPV mRNA E6/E7 WITH REFLEX TO HPV 16,18/45 (03/01/2022 11:03 AM EDT) Clinical Information: Postmenopausal [facility] COMMENT SEE COMMENT [facility] Comment: EXPLANATORY NOTE: The Pap is a screening test for cervical cancer. It is not a diagnostic test and is subject to false negative and false positive results. It is most reliable when a satisfactory sample, regularly obtained, is submitted with relevant clinical findings and history, and when the Pap result is evaluated along with historic and current clinical information. COMMENT: This Pap test has been evaluated with computer assisted technology. [facility] Cytotechnologis t: SEE COMMENT [facility] Comment: CMG, CT(ASCP) CT screening location: [place] [address] HPV nRNA E6/E7 Not Detected Not Detected [facility] Comment: Methodology: Air Hammer Operator-Mediated Amplification This assay detects E6/E7 viral messenger RNA (mRNA) from 14 high-risk HPV types (16,18,31,33,35,39,45,51,52,56,58,59,66,68). Cervical sources are required for HPV testing. If a vaginal source from a patient who has had a total hysterectomy with removal of cervix was submitted, please contact the testing laboratory for alternative testing options. For additional information, please refer to http://education.BookTour/faq/UZH815t2 (This link if provided for information/ educational purposes only.) Interpretation/ Result: Negative for intraepithelial lesion or malignancy. [facility] LMP: PM [facility] Prev. BX: NONE [facility] Prev. PAP: NONE [facility] SOURCE: Cervix [facility] Statement Of Adequacy: SEE COMMENT [facility] Comment: Satisfactory for evaluation. Endocervical/transformation zone component present. 03/01/2022 11:0 3 AM EDT Hannah Leyva CNM LAB PATHOLOGY ORDERABLES Final Result Performing Organization Address [facility] Number [facility] [address] [place] [address], * ALBUMIN, RANDOM URINE W/CREATININE (04/02/2020 8:42 AM EDT) Microalbumin Urine 0.5 See Note: mg/dL [facility] Comment: Reference Range: Reference Range Not established Microalb/Creat Ratio 6 <30 mcg/mg creat [facility] Comment: The ADA defines abnormalities in albumin excretion as follows: Category Result (mcg/mg creatinine) Normal <30 Microalbuminuria 30-299 Clinical albuminuria > OR = 300 The ADA recommends that at least two of three specimens collected within a 3-6 month period be abnormal before considering a patient to be within a diagnostic category. Creatinine, Urine 84 20 - 275 mg/dL [facility] 04/02/2020 8:42 AM EDT Rina Solorio MD LAB URINE ORDERABLES Final Re sult Performing Organization Address [facility] Phone Number [facility] [address] * HEPATITIS C ANTIBODY RFLX (10/03/2019 10:32 AM EST) HEPATITIS C ANTIBODY NONREACTIVE NONREACTIVE [facility] Comment: Antibodies to HCV not detected; does not exclude early acute HCV infection. 10/03/2019 10:3 2 AM EST Historical Provider HISTORICAL/NON ORDERABLE LABS Final Result Performing Organization Address [facility] de Phone Number [facility] [address] * HIV AB/AG (10/03/2019 10:32 AM EST) HIV AG/AB NONREACTIVE NR [facility] Comment: HIV-1 p24 Ag and/or HIV-1/HIV-2 Ab not detected. A test result that is nonreactive does not exclude the possibility of exposure to or infection with HIV-1 and/or HIV-2. Nonreactive results in this assay for individuals with prior exposure to HIV-1 and/or HIV-2 may be due to antigen and antibody levels that are below the limit of detection of this assay. The [employer] Inspector HIV Ag/Ab Combo assay result and supplemental assay results should be interpreted in conjunction with the patient's clinical presentation, history and other laboratory results. If the results are inconsistent with clinical evidence, additional testing is suggested to confirm the result. 10/03/2019 10:3 2 AM EST Historical Provider HISTORICAL/NON ORDERABLE LABS Final Result [facility] [address] * Colonoscopy (12/17/2015) Colonoscopy Normal Normal Narrative GunjanKendal haney - 12/17/2015 Recommended 10 year follow up us Historical Provider HEALTH MAINTENANCE Final Result from Last 3 Months or Most Recently Relevant to Health Maintenance Insurance [facility] MEDICAID STAND ADULT Care Teams District Sales Representative Relationship Specialty Start Date End Date Rina Solorio MD [address] [place] [id number] PCP - General Family Medicine 12/15/15
--- OUTSIDE RECORDS SUMMARY | 2025-03-14 09:25 | XMS_ITS | Clinical Summary ---
Author Organization [facility] Address [address] [place] [address] Phone Care Team Providers Care Manager Pathology Name Role Phone Jadiel Daly MD Primary Care Provider Allergies Active Allergy Reactions Criticality Noted Date Comments Piperacillin-Tazobactam 01/24/2025 Medications lidocaine 4 % patch Apply 1 patch topically 1 (one) time each day. 30 each 02/24/20 25 Encounters Date Type Department Care Team Description 01/24/2025 7:41 PM EDT - 01/24/2025 9:37 PM EDT Emergency [facility] Emergency [address] [place] [address] Left sided sciatica (Primary Dx) Discharge Disposition: Home or Self Care from Last 3 Months Surgical History Surgery Date Site/Laterality Comments SECTION PROCEDURE: [place] DELIVERY ONLY; COMMENT: x 5 OTHER SURGICAL HISTORY PROCEDURE: [place] UNLISTED LAPAROSCOPY PROCEDURE UTERUS Medical History Medical [...] Sister 2 Alive Sister 3 Alive Son Charanijt Alive Social History Tobacco Use Types Packs/Day [...] PCV) 2015 Colorectal Cancer Screening: Colonoscopy 07/10/2022 HIV Screening 07/10/2022 Hepatitis C Screening 07/10/2022 Social Influencers of Health Screening 07/10/2022 COVID-19 Vaccine ( season) 2024 11/17/2021, 06/17/2021, 11/16/2020, Additional history exists Depression Screening 08/07/2024 DTaP,Tdap,and Td Vaccines (2 - Td or [...] mammography. Mammo Location: [facility], [address] [place] [address], [phone], . -------- FINAL REPORT -------- Dictated By: Faiza Padgett Dictated Date: 09/10/2024 09:39 ET Assigned Physician: Faiza Padgett Reviewed and Electronically Signed By: Faiza Padgett Signed Date: 09/10/2024 09:49 ET Workstation ID: [id number] Transcribed By: Self Edit Transcribed Date: 09/10/2024 [...] mammography. Mammo Location: [facility], [address] [place] [address], [phone], . -------- FINAL REPORT -------- Dictated By: Faiza Padgett Dictated Date: 09/10/2024 09:39 ET Assigned Physician: Faiza Padgett Reviewed and Electronically Signed By: Faiza Padgett Signed Date: 09/10/2024 09:49 ET Workstation ID: [id number] Transcribed By: Self Edit Transcribed Date: 09/10/2024 09:39 ET us Misty Krishna MD IMG BI PROCEDURES Final Re sult from Last 3 Months or Most Recently Relevant to Health Maintenance Insurance MEDICA[place] - [place] Advance Directives Documents on File Type Date Recorded Patient Branch Lead Expl anation Health Care Decision (hx) 02/27/2013 [...] (hx) 02/20/2013 AD BRAND DIRECTIVE Care Teams Manager Pathology Relationship Specialty Start Date End Date Jadiel Daly MD [address] [place] [address] PCP - General Internal Medicine 03/09/13
[2025-03-14 14:49] LABS: MANUAL DIFF FLAG NO
[2025-03-14 15:08] LABS: Hematocrit 34.6 % (37.0-47.0); Hemoglobin 11.5 g/dl (12.0-16.0); Imm Gran Abs Auto 0.02 X10*3/uL (0.00-0.03); Imm Gran Pct Auto 0.3 % (0.0-0.4); Lymphocytes Absolute Auto 1.7 X10*3/uL (1.2-4.9); Mean Corpuscular HGB Conc 33.2 g/dl (31.0-35.0); Mean Corpuscular Hemoglobin 27.1 pg (27.0-33.0); Mean Corpuscular Volume 81.6 fL (80.0-98.0); NRBC Abs Auto 0.000 X10*3/uL (0.0-0.012); NRBC Pct Auto 0.0 /100WBC (0.0-0.2); Platelet Count 256 X10*3/uL (160-400); Red Blood Count 4.24 X10*6/uL (4.20-5.50); White Blood Count 6.4 X10*3/uL (4.8-10.8)
[2025-03-14 15:37] LABS: Microalbum/Creatinine Ratio Ur 48.0 ug/mg cr (<30)
== END 2025-03-14 09:20 | disposition home or self-care (01) ==
LOC: HO.CHCLDS 09:19
PROVIDERS: Visit Provider Pediatrics
DX: E11.9 Type 2 diabetes mellitus without complications (principal); D50.9 Iron deficiency anemia, unspecified
CPT/HCPCS: 36415; 82043; 82570; 85025

== ENCOUNTER 2025-05-02 16:14 | Outpatient (REF) | payer MEDICAID, SELFPAY ==
--- OUTSIDE RECORDS SUMMARY | 2025-05-02 08:40 | XMS_ITS | Encounter Summary ---
Author Organization [employer] Address [address] [facility] [address]t [place] [address] Care Team Providers Care Practice Clinician Name Role Phone Rina Solorio MD Primary Care Provider [phone] Reason for Visit * Reason Comments uti symptoms Encounter Details Date Type Department Care Team ([facility] st Contact Info) Description 05/02/2025 8:40 AM EDT Office Visit [facility] [address] [place], [place] [phone] Modesto Adrian MD [address] [place] [address] Acute UTI Social History Tobacco Use Types Packs/Day Years [...] Sign Reading Time Taken Comments Blood Pressure 136/85 05/02/2025 8:42 AM EDT Pulse 83 05/02/2025 8:42 AM EDT Temperature 36.3 C (97.4 F) 05/02/2025 8:42 AM EDT Respiratory Rate 18 05/02/2025 8:42 AM EDT Oxygen Saturation 97% 05/02/2025 8:42 AM EDT Inhaled Oxygen Concentration - - Weight - - Height - - Body Mass Index - - documented in this encounter Progress Notes * Modesto Adrian MD - 05/02/2025 8:40 AM EDT Subjective History was provided by the patient. Yobany Lamar is a 60 y.o. female who presents for evaluation of 3-day duration of dysuria.Denies gross hematuria. Denies urinary frequency or urgency. Denies incontinence. No abdominal/flank pain. Denies F/C/N/V/D. She has been to the [facility] several times for dysuria (with unremarkable U/A and negative UCx). Her last true UTI was several months ago. Objective Vitals: 05/02/25 0842 BP: 136/85 BP Location: Right arm Patient Position: Sitting BP Cuff Size: Adult Pulse: 83 Resp: 18 Temp: 97.4 ??F (36.3 ??C) TempSrc: Temporal SpO2: 97% Physical Exam Vitals reviewed. Constitutional: General: She is not in acute distress. Appearance: Normal appearance. She is not ill-appearing, toxic-appearing or diaphoretic. HENT: Head: Normocephalic and atraumatic. Right Ear: External ear normal. Left Ear: External ear normal. Nose: Nose normal. Mouth/Throat: Mouth: Mucous membranes are moist. Pharynx: Oropharynx is clear. Eyes: Extraocular Movements: Extraocular movements intact. Conjunctiva/sclera: Conjunctivae normal. Pulmonary: Effort: Pulmonary effort is normal. Abdominal: General: Abdomen is flat. There is no distension. Palpations: Abdomen is soft. Tenderness: There is no abdominal tenderness. There is no right CVA tenderness, left CVA tenderness, guarding or rebound. Musculoskeletal: General: Normal range of motion. Cervical back: Neck supple. Skin: General: Skin is warm and dry. Neurological: General: No focal deficit present. Mental Status: She is alert and oriented to person, place, and time. Psychiatric: Mood and Affect: Mood normal. Behavior: Behavior normal. Office Visit on 05/02/2025 Component Date Value Ref Range Status Color, UA 05/02/2025 Yellow Final Clarity, UA 05/02/2025 Clear Final Glucose, UA 05/02/2025 Negative Final Bilirubin, UA 05/02/2025 Negative Final Ketones, UA 05/02/2025 Negative Final Spec Grav, UA 05/02/2025 1.015 Final Blood, UA 05/02/2025 Positive (A) Negative, None Detected Final Trace- intact pH, UA 05/02/2025 6.0 Final Protein, UA 05/02/2025 Trace Final Urobilinogen, UA 05/02/2025 0.2 Final Leukocytes, UA 05/02/2025 Many (A) Negative, Rare, Trace Final Large Nitrite, UA 05/02/2025 Positive (A) Negative, None Detected Final Yobany was seen today for uti symptoms. Diagnoses and all orders for this visit: Acute UTI - POCT urinalysis dipstick manually resulted - Culture, Urine, Routine - cefuroxime (Ceftin) 250 MG tablet; Take 1 tablet (250 mg) by mouth 2 times daily for 5 days. Patient with a clinical presentation of acute UTI POC UA positive for blood, leukocytes, and nitrite this time No clinical evidence of acute abdomen or pyelonephritis Will send out UCx and start antibiotic medication (Ceftin) Potential adverse effects of the medication reviewed Probiotic use discussed Allergies reviewed Discussed strategies to prevent future infections Advised to contact the clinic if no improvement of symptoms Indications for UC/ER use reviewed documented in this encounter Plan of Treatment Scheduled Orders Name Type Priority Associated Diagnoses Orde r Schedule Culture, Urine, Routine Microbiology Routine Acute UTI Ordered: 05/02/2025 documented as of this encounter Procedures Procedure Name Priority Date/Time Associated Diagnosis Comments POCT URINALYSIS DIPSTICK Routine 05/02/2025 8:48 AM EDT Acute UTI documented in this encounter Results * (ABNORMAL) POCT urinalysis dipstick manually resulted (05/02/2025 8:48 AM EDT) Color, UA Yellow Clarity, UA Clear Glucose, UA Negative Bilirubin, UA Negative Ketones, UA Negative Spec Grav, UA 1.015 Blood, UA Positive(A) Negative, None Detected Comment:Trace- intact pH, UA 6.0 Protein, UA Trace Urobilinogen, UA 0.2 Leukocytes, UA Many(A) Negative, Rare, Trace Comment:Large Nitrite, UA Positive(A) Negative, None Detected Urine 05/02/2025 8:48 AM EDT Modesto Adrian MD POINT OF CARE TEST ENTER/EDIT OR DERABLES Final Result documented in this encounter Visit Diagnoses Diagnosis Acute UTI Urinary tract infection, site not specified documented in this encounter Care Teams Practice Clinician Relationship Specialty Start Date End Date Rina Solorio MD [address] [place] [address] PCP - General Family Medicine 12/15/15 documented as of this encounter
--- OUTSIDE RECORDS SUMMARY | 2025-05-02 16:16 | XMS_ITS | Encounter Summary ---
Author Organization [facility] Address [address] [place] [address] Care Team Providers Care Retail Assistant Store Manager Name Role Phone Jadiel Daly MD Primary Care Provider [phone] Encounter Details Date Type Department Care Team (Late st Contact Info) Description 03/26/2025 Lab Requisition [facility] - Main Lab [address] [facility] [place] [address] Regan Licea, [address] [place], [place] [phone] Urinary tract infection, site not specified Social History Tobacco Use Types Packs/Day Years [...] Orientation Straight 09/06/2024 10 :27 AM EST documented as of this encounter Plan of Treatment Not on file documented as of this encounter Procedures Procedure Name Priority Date/Time Associated Diagnosis Comments CULTURE URINE Routine 03/26/2025 8:19 AM EDT Urinary tract infection, site not specified documented in this encounter Results * (ABNORMAL) Culture urine (03/26/2025 8:19 AM EDT) Culture, Urine 10,000-49,000 CFU/mL Streptococcus beta-hemolytic Group B(A) 03/27/2025 10:02 AM EDT [facility] Comment: Susceptibility testing is not routinely performed for Beta Streptococcus isolates since these organisms are predictably sensitive to Penicillin. If the Patient is not responding, is allergic to Penicillin, or further therapeutic information is requir ed, please consult an Infectious Disease Specialist. Urine Urine specimen obtained by clean catch procedure / Unknown 03/26/2025 8:19 AM EDT 03/26/2025 1:14 PM EDT [facility] Anuja PA LAB MICROBIOLOGY - GENERAL LOIDA JAY Final Result [facility] [address] [place] [address], documented in this encounter Visit Diagnoses Diagnosis Urinary tract infection, site not specified documented in this encounter Care Teams Retail Assistant Store Manager Relationship Specialty Start Date End Date Jadiel Daly MD [address] [place] [address] PCP - General Internal Medicine 03/09/13 documented as of this encounter
--- OUTSIDE RECORDS SUMMARY | 2025-05-02 16:17 | XMS_ITS | Encounter Summary ---
Author Organization [employer] Address [address] [facility] 7 [place] [address] Care Team Providers Care Evaluation Advisor Name Role Phone Rina Solorio MD Primary Care Provider [phone] Reason for Visit * Reason Onset Date Comments Appointment Request 08/30/2022 Encounter Details Date Type Department Care Team ([facility] st Contact Info) Description 08/30/2022 Telephone [facility] [address] [place], [place] [phone] Rina Solorio MD [address] [place] [address] Appointment Request Social History Tobacco Use Types [...] Complete Left If any concerns please contact [phone] Greek Speaker documented in this encounter Plan of Treatment Not on file documented as of this encounter Visit Diagnoses Not on filedocumented in this encounter Care Teams Evaluation Advisor Relationship Specialty Start Date End Date Rina Solorio MD [address] [place] [address] PCP - General Family Medicine 12/15/15 documented as of this encounter
--- OUTSIDE RECORDS SUMMARY | 2025-05-02 16:17 | XMS_ITS | Encounter Summary ---
Author Organization [employer] [facility] Address [address] [place] [address] [address] [place] [address] Care Team Providers Care Data Miner Name Role Phone Rina Solorio MD Primary Care Provider [phone] Encounter Details Date Type Department Care Team (Latest Contact Info) Description 12/28/2021 Abstract [facility] CONVERSIONS Dental, Provider, DDS Social History Tobacco [...] on filedocumented in this encounter Care Teams Data Miner Relationship Specialty Start Date End Date Rina Solorio MD [address] [place] [address] PCP - General Family Medicine 12/15/15 documented as of this encounter
--- OUTSIDE RECORDS SUMMARY | 2025-05-02 16:17 | XMS_ITS | Clinical Summary ---
Author Organization [employer] Address [address] [place] [address] 7[address] [place] [address] Care Team Providers Care Sharepoint Solutions Developer Name Role Phone Rina Solorio MD Primary Care Provider [phone] Allergies Active Allergy Reactions Criticality Noted Date Comments Ondansetron Hives 10/19/2016 Piperacillin 01/05/2013 Hx that pt took cephalosporin in the past with no problem Piperacillin-Tazobactam In Dex 02/02/2023 Other reaction(s): throat swelling Shellfish Allergy Itching Low 07/27/2022 Other reaction(s): throat swells Medications Alcohol Swabs (SM Alcohol Prep) 70 % pads USE EVERY DAY 2 Active lidocaine-priloc alex (Emla) 2.5-2.5 % cream Apply topically at bed time. 0 Active simethicone (Mylicon,Gas-X) 180 MG capsule take one capsule up to every 6 hours PRN 2 Active FREESTYLE LITE test strip TEST BLOOD SUGAR TWICE DAILY 50 strip 11 3 Active TRUEplus Lancets 33G misc TEST BLOOD SUGAR TWICE DAILY 100 each 11 3 Active TRUEplus Lancets 33G misc TEST BLOOD SUGAR TWICE DAILY 3 Active cholecalciferol (Vitamin D-3) 50 MCG (1999 UT) tablet Take 2,000 Units by mouth in the morning. 90 tablet 5 3 Active prednisoLONE acetate (Pred-Forte) 1 % ophthalmic suspension INSTILL 1 DROP IN THE LEFT EYE FOUR TIMES DAILY FOR 4 DAYS AFTER LASER THEN STOP 5 Active cyclobenzaprine (Flexeril) 10 MG tablet Take 1 tablet (10 mg) by mouth 3 times daily for 5 days. 15 tablet 5 Active estradiol (Estrace) 0.1 MG/GM vaginal cream insert 1 g vaginally twice a week 42.5 g 3 5 Active cetirizine (ZyrTEC) 10 MG tablet Take 1 tablet (10 mg) by mouth Once per day. 90 tablet 3 5 026 Active Ferrous Sulfate (iron) 325 (65 Fe) MG tabletIndication s:Vitamin D deficiency,Iron deficiency anemia due to chronic blood loss Take 1 tab orally daily with 1 oz of orange juice 90 tablet 2 5 Active Ketotifen Fumarate 0.035 % solution Administer 1 drop into affected eye(s) if needed in the morning and at bedtime (eye redness, itching). For 7 days 10 mL 5 Active cyclobenzaprine (Flexeril) 5 MG tabletIndication s:Acute right-sided low back pain with right-sided sciatica Take 1 tablet (5 mg) by mouth 3 times daily for 10 days. 30 tablet 5 Active metFORMIN XR (Glucophage-XR) 500 MG 24 hr tablet TAKE 1 TABLET BY MOUTH EVERY DAY IN THE EVENING WITH DINNER 5 Active acetaminophen (Tylenol) 500 MG tablet Take 2 tablets (1,000 mg) by mouth every 6 (six) hours if needed for moderate pain or fever. 60 tablet 1 5 Active fluticasone (Flonase) 50 MCG/ACT nasal spray Administer 2 sprays into each nostril Once per day. Shake gently. Before first use, prime pump. After use, clean tip and replace cap. 16 g 3 5 026 Active ibuprofen 600 MG tablet Take 1 tablet (600 mg) by mouth every 6 (six) hours if needed for mild pain. 40 tablet 1 5 026 Active Diclofenac Sodium 1 % gel Apply 2 g topically if needed in the morning, at noon, in the evening, and at bedtime (pain). 150 g 3 5 Active Ascorbic Acid (vitamin C) 250 MG tabletIndication s:Vitamin D deficiency,Iron deficiency anemia due to chronic blood loss TAKE ONE TABLET BY MOUTH ONCE DAILY 90 tablet 1 5 Active metFORMIN XR (Glucophage-XR) 500 MG 24 hr tablet Take 1 tablet (500 mg) by mouth with evening meal. 90 tablet 2 5 Active EPINEPHrine (EpiPen 2-Kenny) 0.3 MG/0.3ML injection syringeIndicatio ns:Insect sting allergy, current reaction, accidental or unintentional, initial encounter Inject 0.3 mL (0.3 mg) as directed 1 (one) time if needed for anaphylaxis for up to 1 dose. Inject into upper leg. Call 911 after use. 1 each 5 Active triamcinolone (Kenalog) 0.1 % creamIndications :Xerosis of skin,Scar Apply topically if needed in the morning and at bedtime (itch). Up to 4 weeks 30 g 5 Active cefuroxime (Ceftin) 250 MG tabletIndication s:Acute UTI Take 1 tablet (250 mg) by mouth 2 times daily for 5 days. 10 tablet 5 025 Active polyethylene glycol, PEG, 3350 (MiraLax) 17 GM/SCOOP powderIndication s:Slow transit constipation Take 17 g by mouth Once per day. 527 g 2 5 025 Active Problems Problem Noted Date Diagnosed Date [...] vit C --to get D mannose at [facility] or [facility] -confirmed w px they dont have it [...] improvement in 72 h to return to [facility] or ED Straining during bowel movements 03/30/2023 [...] Encounters Date Type Department Care Team Description 05/02/2025 8:40 AM EDT Office Visit [facility] [address] [place] [phone] Modesto Adrian MD Acute UTI 05/02/2025 Travel 04/25/2025 9:45 AM EDT Office Visit [facility] MEDICINE [address] [place] [phone] Cara Tipton MD Xerosis of skin (Primary Dx); Scar 04/25/2025 Travel 04/22/2025 Orders Only [facility] [address] [place] [address] Rina Solorio MD Dermatitis (Primary Dx) 03/25/2025 Orders Only [facility] [address] [place] [address] Rina Solorio MD Cystitis (Primary Dx) 03/14/2025 9:00 AM EDT Office Visit [facility] [address] [place] [address] Rina Solorio MD Type 2 diabetes mellitus without complication, without long-term current use of insulin ([facility]) (Primary Dx); Iron deficiency anemia, unspecified iron deficiency anemia type; Insect sting allergy, current reaction, accidental or unintentional, initial encounter 03/14/2025 Travel 03/05/2025 Refill [facility] [address] [place] [address] Rina Solorio MD 02/26/2025 Refill [facility] [address] [place] [address] Rina Solorio MD Vitamin D deficiency; Iron deficiency anemia due to chronic blood loss 02/21/2025 8:40 AM EDT Office Visit [facility] [address] [place] [address] Adrienne Nava DO Viral URI (Primary Dx); Left buttock pain 02/14/2025 9:40 AM EDT Office Visit [facility] [address] [place] [address] Marilu Farmer MD Acute bacterial conjunctivitis of left eye (Primary Dx); UTI symptoms 02/14/2025 Travel from Last 3 Months Immunizations Immunization [...] your housing situation today? I have moy sing 03/06/[address] you li [...] EDT Inhaled Oxygen Concentration - - Weight 62.9 kg (138 lb 9.6 oz) 04/25/2025 9:00 A M EDT Height 149.9 cm (4' 11 ) 04/25/2025 9:00 AM EDT Body Mass Index 27.99 04/25/2025 9:00 AM EDT Plan of Treatment Health Maintenance Due Date Last Done Comments CT Colonography 1965 Depression Screening 1965 FIT DNA/Cologuard 1965 FIT 1965 FOBT 1965 Sigmoidoscopy 1965 Disability Screening 1965 Diabetes: Foot Exam 1975 Eye Exam 1975 Alcohol/Substance Use Screening 1977 Pneumococcal Vaccine: 50+ Years (1 of 2 - PCV) 1984 DTaP/Tdap/Td Vaccines (2 - Td or Tdap) 08/26/2024 08/26/2014 Dental Oral Exam 01/21/2025 07/22/2024, , 09/11/2018, Additional history exists Dental Prophylaxis 01/21/2025 07/22/2024, 0 12/28/2021, 04/18/2019, Additional history exists SDOH Screening 03/06/2025 03/06/2024 COVID-19 Vaccine ( season) 2025 11/17/2021, 06/17/2021, 11/16/2020, Additional history exists Influenza Vaccine (#1) 2025 , 06/17/2021, 05/14/2020, Additional history exists Lipid Panel 09/06/2025 09/06/2024, 12/2020, 05/15/2020, Additional history exists Dental X-Ray: Bitewings 09/07/2025 09/06/19, 08/27/2024, 07/22/2024, Additional history exists Diabetes: Hemoglobin A1C 09/14/2025 025, 12/12/2024, 09/05/2024, Additional history exists Colonoscopy 12/16/2025 12/17/2015 Colorectal Cancer Screening 12/16/2025 Diabetes: Urine Protein Screening 03/14/2026 03/14/2025, 04/02/2020, 10/03/2019 Tobacco Screening 04/25/2026 04/25/2025 Mammogram 09/10/2026 09/10/2024, 0 11/2024, 09/10/2024, Additional history exists Cervical Cancer [...] patient's age to complete this topic Hepatitis B Vaccines Aged Out No long er eligible [...] Routine 05/02/2025 8:48 AM EDT Acute UTI AMB REFERRAL TO UROLOGY Routine 03/26/2025 Cystitis ALBUMIN, RANDOM URINE W/CREATININE Routine 03/14/2025 9:30 AM EDT Type 2 diabetes mellitus without complication, without long-term current use of insulin ([facility]) CBC WITH AUTO DIFFERENTIAL Routine 03/14/2025 9:20 AM EDT Iron deficiency anemia, unspecified iron deficiency anemia type POCT GLYCATED HEMOGLOBIN, TOTAL Routine 03/14/2025 8:59 AM EDT Type 2 diabetes mellitus without complication, without long-term current use of insulin ([facility]) POCT GLUCOSE Routine 03/14/2025 8:59 AM EDT Type 2 diabetes mellitus without complication, without long-term current use of insulin ([facility]) POCT INFLUENZA B (ID NOW RAPID MOLECULAR) [...] Routine 02/14/2025 9:36 AM EDT UTI symptoms PANORAMIC RADIOGRAPHIC IMAGE Routine 10/01/2024 9:00 AM EST BI US BREAST LIMITED LEFT Routine 09/10/2024 Breast pain, left BITEWING - SINGLE RADIOGRAPHIC IMAGE Routine 09/06/2024 11:30 AM EST LIPID PANEL, STANDARD Routine 09/06/2024 8:08 AM EST Type 2 diabetes mellitus without complication, without long-term current use of insulin ([facility]) Dietary counseling Exercise counseling Atrophic vaginitis Acute vaginitis PROPHYLAXIS - ADULT Routine 07/22/2024 8 :00 AM EST COMPREHENSIVE ORAL EVALUATION - NEW OR ESTABLISHED PATIENT Routine 07/22/2024 8:00 AM EST THINPREP IMAGING PAP AND HPV MRNA E6/E7 WITH REFLEX TO HPV 16,18/45 Routine 03/01/2022 11:03 AM EDT ZZZ HISTORICAL HEPATITIS C ANTIBODY RFLX Routine 10/03/2019 10:32 AM EST ZZZ HISTORICAL HIV AB/AG Routine 10/03/2019 10:32 AM EST COLONOSCOPY Routine 12/17/2015 from Last 3 Months or Most Recently Relevant to Health Maintenance Results * (ABNORMAL) POCT urinalysis dipstick manually resulted (05/02/2025 8:48 AM EDT) Only the most recent of2 [...] TEST ENTER/EDIT OR DERABLES Final Result * Referral to Urology (03/26/2025) us Rina Solorio MD OUTPATIENT REFERRAL ORDERABLE S Final Result * (ABNORMAL) Albumin, Random Urine W/Creatinine (03/14/2025 9:30 AM EDT) Creatinine, Urine 56.24 mg/dL [facility] Microalbumin Urine 27.0 mg/L H [facility] Microalbum Creatinine Ratio Ur 48.0(H) <30 ug/mg cr [facility] Comment:Albumin/Creatinine R atio Reference Ranges: Normal: < 30 ug/mg creatinine Microalbuminuria: 30 - 300 ug/mg creatinineClinical Albuminuria: > 300 ug/mg creatinine Urine (Urine, Random) 03/14/2025 9:30 AM EDT 03/14/2025 2:33 PM EDT us Rina Solorio MD LAB URINE ORDERABLES Final Re sult [facility] [address] [place] [phone] * (ABNORMAL) CBC auto differential (03/14/2025 9:20 AM EDT) White Blood Count 6.4 4.8 - 10.8 X10*3/uL [facility] Red Blood Count 4.24 4.20 - 5.50 X10*6/uL [facility] Hemoglobin 11.5(L) 12.0 - 16.0 g/dl [facility] Hematocrit 34.6(L) 37.0 - 47.0 % [facility] Mean Corpuscular Volume 81.6 80.0 - 98.0 fL [facility] Mean Corpuscular Hemoglobin 27.1 27.0 - 33.0 pg [facility] Mean Corpuscular HGB Conc 33.2 31.0 - 35.0 g/dl [facility] Red Cell Distribution Width 14.0 11.0 - 16.0 % [facility] Platelet Count 256 160 - 400 X10*3/uL [facility] Mean Platelet Volume 10.9 9.4 - 12.3 fL [facility] Neutrophils Percent Auto 66.6 45 - 73 % [facility] Imm Gran Pct Auto 0.3 0.0 - 0.4 % [facility] Lymphocytes Percent Auto 26.7 20 - 40 % [facility] Monocytes Percent Auto 4.1 2 - 11 % [facility] Eosinophils Percent Auto 1.7 0 - 4 % [facility] Basophils Percent Auto 0.6 0 - 2 % [facility] NRBC Pct Auto 0.0 0.0 - 0.2 /100WBC [facility] Neutrophils Absolute Auto 4.2 2.0 - 8.3 x10*3/uL [facility] Imm Gran Abs Auto 0.02 0.00 - 0.03 X10*3/uL [facility] Lymphocytes Absolute Auto 1.7 1.2 - 4.9 X10*3/uL [facility] Monocytes Absolute Auto 0.3 0.1 - 1.2 X10*3/uL [facility] Eosinophils Absolute Auto 0.1 0.0 - 0.4 X10*3/uL [facility] Basophils Absolute Auto 0.0 0.0 - 0.2 X10*3/uL [facility] NRBC Abs Auto 0.000 0.0 - 0.012 X10*3/uL [facility] Blood Venous blood specimen / Unknown 03/14/2025 9:20 AM EDT 03/14/2025 2:46 PM EDT Rina Solorio MD LAB BLOOD ORDERABLES Final Re sult [facility] [address] [place] [phone] * (ABNORMAL) POCT HGB A1C (03/14/2025 8:59 AM EDT) Hemoglobin A1C 6.9(A) 4.0 - 5.7 % Blood 03/14/2025 8:59 AM EDT Rina Solorio MD POINT OF CARE TEST ENTER/EDIT ORDERABLES Final Result * POCT Glucose (03/14/2025 8:59 AM EDT) Glucose Blood, POC 127 60 - 200 mg/dL Blood Capillary blood specimen / Unknown 03/14/2025 8:59 AM EDT Rina Solorio MD POINT OF CARE TEST ENTER/EDIT ORDERABLES Final Result * Influenza B (ID NOW Rapid Molecular) (02/21/2025 9:05 AM EDT) Influenza B Negative Negative, Indeterminate [facility] Swab 02/21/2025 9:05 AM EDT Adrienne Nava DO POINT OF CARE TEST ENTER/DARCI T ORDERABLES Final Result Performing Organization Address City/[facility]/ZIP Co de Phone Number [facility] [address] [place] [phone] * Influenza A (ID NOW Rapid Molecular) (02/21/2025 9:05 AM EDT) Influenza A Negative Negative, Indeterminate [facility] Swab 02/21/2025 9:05 AM EDT Adrienne Nava DO POINT OF CARE TEST ENTER/DARCI T ORDERABLES Final Result Performing Organization Address [facility] Co de Phone Number [facility] [address] [place] [phone] * POCT Rapid COVID Ag (02/21/2025 9:05 AM EDT) [facility] Rapid COVID Ag Negative [facility] Swab 02/21/2025 9:05 AM EDT Adrienne Nava DO POINT OF CARE TEST ENTER/DARCI T ORDERABLES Final Result Performing Organization Address [facility] de Phone Number [facility] [address] [place] [phone] * POCT rapid strep A manually resulted (02/21/2025 9:05 AM EDT) [facility] Rapid Strep A Screen Negative Negative, None Detected [facility] Swab 02/21/2025 9:05 AM EDT Adrienne Nava DO POINT OF CARE TEST ENTER/DARCI T ORDERABLES Final Result Performing Organization Address [facility] de Phone Number [facility] [address] [place] [phone] * XR Hip 2 or 3 Views Left (02/21/2025) Anatomical Region Laterality Modality Lower Extremities, Hip Left Radiograp hic Imaging us Adrienne Nava DO IMG XR PROCEDURES Final Resu lt * XR Lumbar Spine 2-3 Views (02/21/2025) Anatomical Region Laterality Modality Spine, L-spine Radiographic Sheryl ging us Adrienne Nava DO IMG XR PROCEDURES Final Resu lt * Culture, Urine, Routine (02/14/2025 11:50 AM EDT) Urine Urine specimen obtained by clean catch procedure / Unknown 02/14/2025 11:50 AM EDT 02/14/2025 5:48 PM EDT Comment:UACC Narrative [facility] - 02/16/2025 1:10 PM EDT Urine Culture No growth. Specimen Source: Urine clean catch Marilu Farmer MD LAB MICROBIOLOGY - GENERAL ORD ERABLES Final Result [facility] [address] [place] [phone] * BI US Breast Limited Left (09/10/2024) Anatomical Region Laterality Modality Breast Left Ultrasound Misty Krishna MD IMG US PROCEDURES Final Re sult * (ABNORMAL) Lipid Panel, Standard (09/06/2024 8:08 AM EST) Triglycerides 89 <150 mg/dL [facility] Comment:Desirable Triglyceri de: less than 150 mg/dLBorderline High Triglyceride 150-199 mg/dLHigh Triglyceride: 200-499 mg/dLVery High Triglyceride: greater than or equal to 5OO mg/dL Cholesterol 159 <200 mg/dL [facility] Comment:Desirable Cholestero l: less than 200 mg/dLBorderline High Cholesterol: 200-239 mg/dLHigh Cholesterol: greater than 239 mg/dL LDL Cholesterol Calculated 102(H) <100 mg/dL [facility] Comment:Desirable LDL: less than 100 mg/dLNear Optimal/Above Optimal LDL: 110- 129 mg/dLBorderline High LDL: 130-159 mg/dLHigh LDL: 160-189 mg/dLVery High LDL: greater than or equal to 190 mg/dL HDL Cholesterol 40(L) >40 mg/dL [facility] Comment:Desirable HDL: great er than 40 mg/dL Note: This HDL assay may give artificially low results in patients with liver disease. Blood Venous blood specimen / Unknown 09/06/2024 8:08 AM EST 09/06/2024 11:44 AM EST us Rina Solorio MD LAB BLOOD ORDERABLES Final Re sult [facility] [address] [place] [phone] * THINPREP TIS PAP AND HPV [...] been evaluated with computer assisted technology. [facility] Cytotechnologis t: SEE COMMENT [facility] Comment: CMG, CT(ASCP) CT screening location: [place] [address] HPV nRNA E6/E7 Not Detected Not Detected [facility] Comment: Methodology: Purchasing Director-Mediated Amplification This assay detects E6/E7 viral messenger RNA (mRNA) from 14 high-risk HPV types (16,18,31,33,35,39,45,51,52,56,58,59,66,68). Cervical sources are required for HPV testing. If a vaginal source from a patient who has had a total hysterectomy with removal of cervix was submitted, please contact the testing laboratory for alternative testing options. For additional information, please refer to http://[email or web address]/faq/ORN452r6 (This link if provided for information/ educational purposes only.) Interpretation/ Result: Negative for intraepithelial lesion or malignancy. [facility] LMP: PM [facility] Prev. BX: NONE [facility] Prev. PAP: NONE [facility] SOURCE: Cervix [facility] Statement Of Adequacy: SEE COMMENT [facility] Comment: Satisfactory for evaluation. Endocervical/transformation zone component present. 03/01/2022 11:0 3 AM EDT Hannah Leyva CN LAB PATHOLOGY ORDERABLES Final Result Performing Organization Address [facility] Phone Number [facility] [address] [place] [address], * HEPATITIS C ANTIBODY RFLX (10/03/2019 10:32 AM EST) HEPATITIS C ANTIBODY NONREACTIVE NONREACTIVE [facility] Comment: Antibodies to HCV not detected; does not exclude early acute HCV infection. 10/03/2019 10:3 2 AM EST Historical Provider HISTORICAL/NON ORDERABLE LABS Final Result Performing Organization Address [facility] [place] [address], * HIV AB/AG (10/03/2019 10:32 AM EST) [...] of detection of this assay. The [employer] Kennel Manager HIV Ag/Ab Combo assay result and supplemental assay results should be interpreted in conjunction with the patient's clinical presentation, history and other laboratory results. If the results are inconsistent with clinical evidence, additional testing is suggested to confirm the result. 10/03/2019 10:3 2 AM EST Historical Provider HISTORICAL/NON ORDERABLE LABS Final Result Performing Organization Address [facility] Phone Number [facility] [address] [place] [address], * Hm Colonoscopy (12/17/2015) Colonoscopy Normal Normal Kendal Tejada - 12/17/2015 Recommended 10 year follow up us Historical Provider MD HEALTH MAINTENANCE Final Result from Last 3 Months or Most Recently Relevant to Health Maintenance [place] [address] [address] C3 [facility] MEDICAID STAND ADULT Care Teams Sharepoint Solutions Developer Relationship Specialty Start Date End Date Rina Solorio MD [address] [place] [phone] PCP - General Family Medicine 12/15/15
--- OUTSIDE RECORDS SUMMARY | 2025-05-02 16:17 | XMS_ITS | Encounter Summary ---
Author Organization [employer] Address [address] [facility] [address] [place] [address] Care Team Providers Care Nanotechnology Engineering Technician Name Role Phone Rina Solorio MD Primary Care Provider [phone] Encounter Details Date Type Department Care Team (Late st Contact Info) Description 06/13/2023 Abstract [facility] [address] [place] [address] Kendal Hollins Social History Tobacco Use Types [...] on filedocumented in this encounter Care Teams Nanotechnology Engineering Technician Relationship Specialty Start Date End Date Rina Solorio MD [address] [place] [address] PCP - General Family Medicine 12/15/15 documented as of this encounter
--- OUTSIDE RECORDS SUMMARY | 2025-05-02 16:17 | XMS_ITS | Encounter Summary ---
Author Organization [employer] Address [address] [place] [address] [address] [place] [address] Care Team Providers Care Psychiatric Clinician Name Role Phone Rina Solorio MD Primary Care Provider [phone] Reason for Visit * Reason Comments Med Refill Encounter Details Date Type Department Care Team (Late st Contact Info) Description 12/06/2022 Refill [facility] [address] [place] [address] Rina Solorio MD [address] [place] [address] Social History Tobacco Use Types Packs/Day Years [...] on filedocumented in this encounter Care Teams Psychiatric Clinician Relationship Specialty Start Date End Date Rina Solorio MD [address] [place] [address] PCP - General Family Medicine 12/15/15 documented as of this encounter
--- OUTSIDE RECORDS SUMMARY | 2025-05-02 16:17 | XMS_ITS | Clinical Summary ---
Author Organization [facility] Address [address] [place] [address] Phone Care Team Providers Care Medical Laboratory Technologist Name Role Phone Jadiel Daly MD Primary Care Provider [phone] Allergies Active Allergy Reactions Criticality Noted Date Comments Piperacillin-Tazobactam 01/24/2025 Encounters Date Type Department Care Team Description 03/26/2025 Lab Requisition [facility] - Main Lab [address] [facility] [place] [address] Regan Licea PA Urinary tract infection, site not specified from Last 3 Months Surgical History Surgery Date Site/Laterality Comments SECTION PROCEDURE: DC DELIVERY ONLY; COMMENT: x 5 OTHER SURGICAL HISTORY PROCEDURE: DC UNLISTED LAPAROSCOPY PROCEDURE UTERUS Medical History Medical [...] 1975 Diabetes: Annual Retina Eye Exam 1975 Cervical Cancer Screening: HPV 1986 Pneumococcal Vaccine: 50+ Years (1 of 1 - PCV) 2015 Colorectal Cancer Screening: Colonoscopy 07/10/2022 HIV Screening 07/10/2022 Hepatitis C Screening 07/10/2022 Social Influencers of Health Screening 07/10/2022 Depression Screening 08/07/2024 DTaP,Tdap,and Td Vaccines (2 - Td or Tdap) 08/26/2024 08/26/2014 Diabetes: Annual Urine Albumin-Creatinine Ratio (uACR) 03/27/2025 COVID-19 Vaccine ( season) 2025 11/17/2021, 06/17/2021, 11/16/2020, Additional history exists Influenza Vaccine (#1) 2025 , 05/14/2020, 05/09/2018, Additional history exists Diabetes: Annual GFR (Glomerular Filtration Rate) 09/06/2025 09/06/2024 Diabetes: Blood Sugar Control Test (HGBA1C) 09/14/2025 03/14/2025, 12/12/2024, 09/05/2024 Breast Cancer Screening 09/10/2026 09/10/19 25, 04/29/2024, [...] EDT Urinary tract infection, site not specified MG MAMMO DIGITAL DIAGNOSTIC W KALE LEFT Routine 09/10/2024 9:43 AM EST Mastodynia from Last 3 Months or Most Recently Relevant to Health Maintenance Results * (ABNORMAL) Culture urine (03/26/2025 8:19 AM EDT) Culture, Urine 10,000-49,000 CFU/mL Streptococcus beta-hemolytic Group B(A) 03/27/2025 10:02 AM EDT [facility] Comment: Susceptibility testing is not routinely performed for Beta Streptococcus isolates since these organisms are predictably sensitive to Penicillin. If the Patient is not responding, is allergic to Penicillin, or further therapeutic information is requir ed, please consult an Infectious Disease Specialist. Urine Urine specimen obtained by clean catch procedure / Unknown 03/26/2025 8:19 AM EDT 03/26/2025 1:14 PM EDT [facility] MICROBIOLOGY - GENERAL LOIDA JAY Final Result [facility] [address] [place] [address], [place] [phone] * MG Mammo Digital Diagnostic w Kale [...] mammography. Mammo Location: [facility], [address] [place] [address], [address], . -------- FINAL REPORT -------- Dictated By: Faiza Padgett Dictated Date: 09/10/2024 09:39 ET Assigned Physician: Faiza Padgett Reviewed and Electronically Signed By: Faiza Padgett Signed Date: 09/10/2024 09:49 ET Workstation ID: [id number] Transcribed By: Self Edit Transcribed Date: 09/10/2024 [...] mammography. Mammo Location: [facility], [address] [place] [address], [facility], . -------- FINAL REPORT -------- Dictated By: Faiza Padgett Dictated Date: 09/10/2024 09:39 ET Assigned Physician: Faiza Padgett Reviewed and Electronically Signed By: Faiza Padgett Signed Date: 09/10/2024 09:49 ET Workstation ID: [id number] Transcribed By: Self Edit Transcribed Date: 09/10/2024 09:39 ET us Misty Krishna MD IMG BI PROCEDURES Final Re sult from Last 3 Months or Most Recently Relevant to Health Maintenance Insurance MEDICAID - [place] Advance Directives Documents on File Type Date Recorded Patient Banquet Cook Expl anation Health Care Decision (hx) 02/27/2013 [...] (hx) 02/20/2013 AD BRAND DIRECTIVE Care Teams Medical Laboratory Technologist Relationship Specialty Start Date End Date Jadiel Daly MD [address] [place] [address] PCP - General Internal Medicine 03/09/13
--- OUTSIDE RECORDS SUMMARY | 2025-05-02 16:17 | XMS_ITS | Encounter Summary ---
Author Organization [employer] Address [address] [place] [address] 7 [place] [address] Care Team Providers Care Physical Science Teacher Name Role Phone Rina Solorio MD Primary Care Provider [phone] Encounter Details Date Type Department Care Team (Late st Contact Info) Description 12/06/2022 Orders Only [facility] P[facility]S [address] [place] [address] Izabella Anaya LPN Social History Tobacco Use [...] on filedocumented in this encounter Care Teams Physical Science Teacher Relationship Specialty Start Date End Date Rina Solorio MD [address] [place] [address] PCP - General Family Medicine 12/15/15 documented as of this encounter
--- OUTSIDE RECORDS SUMMARY | 2025-05-02 16:17 | XMS_ITS | Encounter Summary ---
Author Organization [employer] Address [address] [facility] [address]t [place] [address] Care Team Providers Care Turn Out Name Role Phone Rina Solorio MD Primary Care Provider [phone] Encounter Details Date Type Department Care Team (Latest Contact Info) Description 05/02/2025 Travel Social History Tobacco Use Types Packs/Day [...] on filedocumented in this encounter Care Teams Turn Out Relationship Specialty Start Date End Date Rina Solorio MD [address] [place] [address] PCP - General Family Medicine 12/15/15 documented as of this encounter
== END 2025-05-02 16:15 | disposition home or self-care (01) ==
LOC: HO.HHCL 16:14
PROVIDERS: Visit Provider Family Medicine
DX: R39.9 Unspecified symptoms and signs involving the genitourinary system (principal)
CPT/HCPCS: 87086; 87088; 87186

== ENCOUNTER 2025-05-31 13:53 | Outpatient (REF) | payer MEDICAID, SELFPAY ==
--- OUTSIDE RECORDS SUMMARY | 2025-05-31 11:20 | XMS_ITS | Encounter Summary ---
Author Organization [facility] Address [address] [place] [address] 7 [place] [address] Care Team Providers Care Head Girls Golf Coach Name Role Phone Rina Solorio MD Primary Care Provider [phone] Reason for Referral * Imaging (Routine) - Pending Review Specialty Diagnoses / Procedures Referred By Contac t Referred To Contact Radiology Diagnoses Abnormal uterine bleeding (AUB) Procedures US Pelvis Transvaginal Nikki Quiroz MD [address] [place] [address] Phone: tel: fax: Referral ID Status Reason Start Date Expiration Date V isits Requested Visits Authorized [id number] Pending Review 05/31/2025 05/31/2026 1 1 * Imaging (Routine) - Pending Review Specialty Diagnoses / Procedures Referred By Contac t Referred To Contact Radiology Diagnoses Abnormal uterine bleeding (AUB) Procedures Us Pelvis complete Nikki Quiroz MD [address] [place] [address] Phone: tel: fax: Referral ID Status Reason Start Date Expiration Date V isits Requested Visits Authorized [id number] Pending Review 05/31/2025 05/31/2026 1 1 Encounter Details Date Type Department Care Team ([facility] st Contact Info) Description 05/31/2025 11:20 AM EDT Office Visit [facility] [address] [place] [address] Nikki Quiroz MD [address] [place], [place] [id number] Type 2 diabetes mellitus without complication, without long-term current use of insulin (HCC) (Primary Dx); Vagina itching; Dysuria; Abnormal uterine bleeding (AUB); UTI symptoms Social History Tobacco Use Types Packs/Day Years [...] Sign Reading Time Taken Comments Blood Pressure 121/87 05/31/2025 11:23 AM EDT Pulse 77 05/31/2025 11:23 AM EDT Temperature 36.8 C (98.3 F) 05/31/2025 11:23 AM EDT Respiratory Rate 16 05/31/2025 11:23 AM EDT Oxygen Saturation 100% 05/31/2025 11:23 AM EDT Inhaled Oxygen Concentration - - Weight 59.1 kg (130 lb 4 oz) 05/31/2025 11:23 AM EDT Height 149.9 cm (4' 11 ) 05/31/2025 11:23 AM EDT Body Mass Index 26.31 05/31/2025 11:23 AM EDT documented in this encounter Progress Notes * Nikki Dickerson MD - 05/31/2025 11:20 AM EDT Subjective Patient ID: Yobany Lamar is a 60 y.o. female who presents for sick visit HPI 60 y o F w PMX of Anxiety, GERD,DM2 Comes to [facility] Reports having 2 days of increase urinary frequency and mild dysuria Also reports note slight vaginal itching today but denies any discharge States few days ago after not having periods for last 6 y noted possible blood from vagina but pt is not sure ,not happening ,denies fever,chills ,no SP nor back pain . Denies history of recurrent UTIs ,denies urologic procedures recently Was referred to urologist for chronic cystitis -seen at [facility] 05/02/25 pxed cefuroxime later changed to Macrobid due to resistance to cephalosporins on ucx w resolution of symptoms. Allergies[1] Review of Systems 2 days of increase urinary frequency and mild dysuria Also reports note slight vaginal itching today but denies any discharge States few days ago after not having periods for last 6 y noted possible blood from vagina but pt is not sure ,not happening ,denies fever,chills ,no SP nor back pain . Objective BP 121/87 (BP Location: Left arm, Patient Position: Sitting, BP Cuff Size: Adult) Pulse 77 Temp98.3 ??F (36.8 ??C) (Oral) Resp 16 Ht 4' 11 (1.499 m) Wt 130 lb 4 oz (59.1 kg) SpO2 100% BMI 26.31 kg/m?? Physical Exam Constitutional: General: She is not in acute distress. Appearance: Normal appearance. She is not ill-appearing. Abdominal: Palpations: Abdomen is soft. Tenderness: There is no abdominal tenderness. There is no right CVA tenderness, left CVA tenderness, guarding or rebound. Genitourinary: Comments: No CMT ,slight amount of normal looking vaginal discharge ,no vulvar irritation Neurological: Mental Status: She is alert. Assessment/Plan Problem List Items Addressed This Visit UTI symptoms - 04/2025 Urine culture Escherichia coli > 100K R to ampicillin,cefazolin,bactrim ,S to nitrofurantoin and ciprofloxacin -08/2024 Renal fucntion wnl -today urine dipstick neg -obtained BV ,ch/gn --will inform result but seems unlikely -states f w urologist already for chronic cystitis -advised pt to rn call center if symptoms recurs -urine dipstick is neg but pt reports clinically similar symptoms as last time - Pxed Macrobid x 5 days but if neg Cx will call pt to stop ATBs -Ucx sent today Type 2 diabetes mellitus without complication, without long-term current use of insulin ([facility]) - Primary Abnormal uterine bleeding (AUB) -sent pelvic/TV US for reports possible vaginal bleeding in tiny amount -not sure if came from vagina -to f w urologist as well Relevant Orders Us Pelvis complete US Pelvis Transvaginal Other Visit Diagnoses Vagina itching Relevant Orders Chlamydia/N. Gonorrhoeae RNA, TMA, Vaginal Bacterial Vaginosis Panel Dysuria Relevant Medications nitrofurantoin, macrocrystal-monohydrate, (Macrobid) 100 MG capsule Other Relevant Orders POCT Urinalysis (Completed) Culture, Urine, Routine [1] Allergies Allergen Reactions Ondansetron Hives Piperacillin Hx that pt took cephalosporin in the past with no problem Piperacillin-Tazobactam In Dex Other reaction(s): throat swelling Shellfish Allergy Itching Other reaction(s): throat swells documented in this encounter Miscellaneous Notes * Assessment & Plan Note - Nikki Dickerson MD - 05/31/2025 1:09 PM EDTAssociated Problem(s): UTI symptoms - 04/2025 Urine culture Escherichia coli > 100K R to ampicillin,cefazolin,bactrim ,S to nitrofurantoin and ciprofloxacin -08/2024 Renal fucntion wnl -today urine dipstick neg -obtained BV ,ch/gn --will inform result but seems unlikely -states f w urologist already for chronic cystitis -advised pt to rn call center if symptoms recurs -urine dipstick is neg but pt reports clinically similar symptoms as last time - Pxed Macrobid x 5 days but if neg Cx will call pt to stop ATBs -Ucx sent today * Assessment & Plan Note - Nikki Dickerson MD - 05/31/2025 1:09 PM EDTAssociated Problem(s): Abnormal uterine bleeding (AUB) -sent pelvic/TV US for reports possible vaginal bleeding in tiny amount -not sure if came from vagina -to f w urologist as well documented in this encounter Plan of Treatment Scheduled Orders Name Type Priority Associated Diagnoses Orde r Schedule Chlamydia/N. Gonorrhoeae RNA, TMA, Vaginal Microbiology Routine Vagina itching Ordered: 05/31/2025 Bacterial Vaginosis Panel Microbiology Routine Vagina itching Ordered: 05/31/2025 Culture, Urine, Routine Microbiology Routine Dysuria Ordered: 05/31/2025 Us Pelvis complete Imaging Routine Abnormal uterine bleeding (AUB) Expected: 05/31/2025, Expires: 05/31/2026 US Pelvis Transvaginal Imaging Routine Abnormal uterine bleeding (AUB) Expected: 05/31/2025, Expires: 05/31/2026 documented as of this encounter Procedures Procedure Name Priority Date/Time Associated Diagnosis Comments POCT URINALYSIS DIPSTICK Routine 05/31/2025 11:34 AM EDT Dysuria documented in this encounter Results * POCT Urinalysis (05/31/2025 11:34 AM EDT) Color, UA Light Yellow Clarity, UA Clear Glucose, UA Negative Bilirubin, UA Negative Ketones, UA Negative Spec Grav, UA 1.010 Blood, UA Negative Negative, None Detected pH, UA 6.0 Protein, UA Negative Urobilinogen, UA 0.2 Leukocytes, UA Negative Negative, Rare, Trace Nitrite, UA Negative Negative, None Detected Appearance, UA clear QC Media Lot # [id number] Lot# Expiration Date ,026 Urine (Urine, Random) 05/31/2025 11:34 AM EDT [facility] POINT OF CARE ENRIQUE T ENTER/EDIT ORDERABLES Final Result documented in this encounter Visit Diagnoses Diagnosis Type 2 diabetes mellitus without complication, without long-term current use of insulin (HCC)- Primary Vagina itching Pruritus of genital organs Dysuria Abnormal uterine bleeding (AUB) UTI symptoms documented in this encounter Care Teams Head Girls Golf Coach Relationship Specialty Start Date End Date Rina Solorio MD [address] [place] [address] PCP - General Family Medicine 12/15/15 documented as of this encounter
--- OUTSIDE RECORDS SUMMARY | 2025-05-31 13:56 | XMS_ITS | Encounter Summary ---
Author Organization [employer] Address [address] [place] [address] [address] [place] [address] Care Team Providers Care Accounts Payable Administrator Name Role Phone Rina Solorio MD Primary Care Provider [phone] Reason for Visit * Reason Comments Med Refill Encounter Details Date Type Department Care Team (Late st Contact Info) Description 12/06/2022 Refill [facility] MED & PEDS [address] [place] [address] Rina Solorio MD [address] [place] [address] Social History Tobacco Use Types Packs/Day Years [...] on filedocumented in this encounter Care Teams Accounts Payable Administrator Relationship Specialty Start Date End Date Rina Solorio MD [address] [place] [address] PCP - General Family Medicine 12/15/15 documented as of this encounter
--- OUTSIDE RECORDS SUMMARY | 2025-05-31 13:56 | XMS_ITS | Encounter Summary ---
Author Organization [employer] Address [address] [facility] [address] [place] [address] Care Team Providers Care Logging Crew Supervisor Name Role Phone Rina Solorio MD Primary Care Provider [phone] Encounter Details Date Type Department Care Team ([facility] st Contact Info) Description 05/05/2025 Results Follow-Up [facility] MED & PEDS [address] [place], [place] [id number] Modesto Adrian MD [address] [place] [address] POCT urinalysis dipstick manually resulted, Culture, Urine, Routine Social History Tobacco Use Types Packs/Day Years Used Date Smoking Tobacco: Never Passive Smoke Exposure: Never Smokeless Tobacco: Never Alcohol Use Standard Drinks/Week Comments Never 0 (1 standard drink = 0.6 oz pur e alcohol) Housing Stability Answer Date Recorded What is your housing situation today? I have myowong marcum 03/06/[address] you [...] on filedocumented in this encounter Care Teams Logging Crew Supervisor Relationship Specialty Start Date End Date Rina Solorio MD [address] [place] [address] PCP - General Family Medicine 12/15/15 documented as of this encounter
--- OUTSIDE RECORDS SUMMARY | 2025-05-31 13:56 | XMS_ITS | Clinical Summary ---
Author Organization [employer] Address [address] [place] [address] [address] [place] [address] Care Team Providers Care B[employer] Library Technical Assistant Name Role Phone Rina Solorio MD Primary Care Provider [phone] Allergies Active Allergy Reactions Criticality Noted Date [...] morning. 90 tablet 5 05/01/20 23 Active prednisoLONE acetate (Pred-Forte) 1 % ophthalmic suspension INSTILL 1 DROP IN THE LEFT EYE FOUR TIMES DAILY FOR 4 DAYS AFTER LASER THEN STOP 09/04/19 25 Active cyclobenzaprin e (Flexeril) 10 MG tablet Take 1 tablet (10 mg) by mouth 3 times daily for 5 days. 15 tablet 10/12/19 25 Active estradiol (Estrace) 0.1 MG/GM vaginal cream insert 1 g vaginally twice a week 42.5 g 3 12/13/19 25 Active cetirizine (ZyrTEC) 10 MG tablet Take 1 tablet (10 mg) by mouth Once per day. 90 tablet 3 12/13/19 25 026 Active Ferrous Sulfate (iron) 325 (65 Fe) MG tabletIndicati ons:Vitamin D deficiency,Iro n deficiency anemia due to chronic blood loss Take 1 tab orally daily with 1 oz of orange juice 90 tablet 2 12/14/19 25 Active Ketotifen Fumarate 0.035 % solution Administer 1 drop into affected eye(s) if needed in the morning and at bedtime (eye redness, itching). For 7 days 10 mL 01/07/20 25 Active cyclobenzaprin e (Flexeril) 5 MG tabletIndicati ons:Acute right-sided low back pain with right-sided sciatica Take 1 tablet (5 mg) by mouth 3 times daily for 10 days. 30 tablet 01/22/20 25 Active metFORMIN XR (Glucophage-XR ) 500 MG 24 hr tablet TAKE 1 TABLET BY MOUTH EVERY DAY IN THE EVENING WITH DINNER 12/13/19 25 Active fluticasone (Flonase) 50 MCG/ACT nasal spray Administer 2 sprays into each nostril Once per day. Shake gently. Before first use, prime pump. After use, clean tip and replace cap. 16 g 3 02/22/20 25 026 Active Diclofenac Sodium 1 % gel Apply 2 g topically if needed in the morning, at noon, in the evening, and at bedtime (pain). 150 g 3 02/22/20 25 Active Ascorbic Acid (vitamin C) 250 MG tabletIndicati ons:Vitamin D deficiency,Iro n deficiency anemia due to chronic blood loss TAKE ONE TABLET BY MOUTH ONCE DAILY 90 tablet 1 02/27/20 25 Active metFORMIN XR (Glucophage-XR ) 500 MG 24 hr tablet Take 1 tablet (500 mg) by mouth with evening meal. 90 tablet 2 03/14/20 25 Active EPINEPHrine (EpiPen 2-Kenny) 0.3 MG/0.3ML injection syringeIndicat ions:Insect sting allergy, current reaction, accidental or unintentional, initial encounter Inject 0.3 mL (0.3 mg) as directed 1 (one) time if needed for anaphylaxis for up to 1 dose. Inject into upper leg. Call 911 after use. 1 each 03/14/20 Active triamcinolone (Kenalog) 0.1 % creamIndicatio ns:Xerosis of skin,Scar Apply topically if needed in the morning and at bedtime (itch). Up to 4 weeks 30 g 04/25/20 Active Acetaminophen Extra Strength 500 MG tablet TAKE 2 TABLETS BY MOUTH EVERY 6 HOURS NEEDED FOR MILD OR MODERATE PAIN 60 tablet 1 05/14/20 Active ibuprofen 600 MG tablet TAKE 1 TABLET BY MOUTH EVERY 6 HOURS NEEDED FOR MILD PAIN 40 tablet 1 05/15/20 Active nitrofurantoin , macrocrystal-m onohydrate, (Macrobid) 100 MG capsuleIndicat ions:Dysuria Take 1 capsule (100 mg) by mouth 2 times daily for 5 days. 10 capsule 05/31/20 25 025 Active acetaminophen (Tylenol) 500 MG tablet Take 2 tablets (1,000 mg) by mouth every 6 (six) hours if needed for moderate pain or fever. 60 tablet 1 02/22/20 25 Discontinued ibuprofen 600 MG tablet Take 1 tablet (600 mg) by mouth every 6 (six) hours if needed for mild pain. 40 tablet 1 02/22/20 25 025 Discontinued cefuroxime (Ceftin) 250 MG tabletIndicati ons:Acute UTI Take 1 tablet (250 mg) by mouth 2 times daily for 5 days. 10 tablet 05/02/20 25 025 nitrofurantoin , macrocrystal-m onohydrate, (Macrobid) 100 MG capsule Take 1 capsule (100 mg) by mouth 2 times daily for 5 days. 10 capsule 05/07/20 025 Active Problems Problem Noted Date Diagnosed Date Type 2 diabetes mellitus wit hout complication, without long-term current use of insulin 05/31/2025 Abnormal uterine bleeding (AUB) 05/31/2025 Assessment & Plan (05/31/2025 1:09 PM EDT): -sent pelvic/TV US for reports possible vaginal bleeding in tiny amount -not sure if came from vagina -to f w urologist as well Acute bacterial conjunctivitis of left eye 02/14 [...] needed UTI symptoms 01/21/2025 Assessment & Plan (05/31/2025 1:09 PM EDT): - 04/2025 Urine culture Escherichia coli > 100K R to ampicillin,cefazolin,bactrim ,S to nitrofurantoin and ciprofloxacin -08/2024 Renal fucntion wnl -today urine dipstick neg -obtained BV ,ch/gn --will inform result but seems unlikely -states f w urologist already for chronic cystitis -advised pt to body recall instructor if symptoms recurs -urine dipstick is neg but pt reports clinically similar symptoms as last time - Pxed Macrobid x 5 days but if neg Cx will call pt to stop ATBs -Ucx sent today Assessment & Plan (01/21/2025 1:01 PM EDT): [...] vit C --to get [facility] -confirmed w px they dont have [...] improvement in 72 h to return to [facility] or ED Straining during bowel movements [...] Encounters Date Type Department Care Team Description 05/31/2025 11:20 AM EDT Office Visit [facility] [address] [place] [address] Nikki Quiroz MD Type 2 diabetes mellitus without complication, without long-term current use of insulin (HCC) (Primary Dx); Vagina itching; Dysuria; Abnormal uterine bleeding (AUB); UTI symptoms 05/31/2025 Travel 05/15/2025 Refill [facility] [address] [place] [address] Adrienne Nava, 05/13/2025 Refill [facility] [address] [address] Adrienne Nava, 05/07/2025 Orders Only [facility] [address] [place] [address] Yaw Jones MD 05/05/2025 Results Follow-Up [facility] [address] [place] [address] Modesto Adrian MD POCT urinalysis dipstick manually resulted, Culture, Urine, Routine 05/02/2025 8:40 AM EDT Office Visit [facility] [address] [address] Modesto Adrian MD Acute UTI 05/02/2025 Travel 04/25/2025 9:45 AM EDT Office Visit [facility] [address] [place] [address] Cara Tipton MD Xerosis of skin (Primary Dx); Scar 04/25/2025 Travel 04/22/2025 Orders Only [facility] [address] [place] [address] Rina Solorio MD Dermatitis (Primary Dx) 03/25/2025 Orders Only [facility] [address] [place] [address] Rina Solorio MD Cystitis (Primary Dx) 03/14/2025 9:00 AM EDT Office Visit [facility] [address] [facility] [place] [address] Rina Solorio MD Type 2 diabetes mellitus without complication, without long-term current use of insulin ([facility]) (Primary Dx); Iron deficiency anemia, unspecified iron deficiency anemia type; Insect sting allergy, current reaction, accidental or unintentional, initial encounter 03/14/2025 Travel 03/05/2025 Refill [facility] [address] [place] [address] Rina Solorio MD from Last 3 Months Immunizations Immunization Administration [...] Mass Index 26.31 05/31/2025 11:23 AM EDT Plan of Treatment Health Maintenance [...] Screening 03/14/2026 03/14/2025, 04/02/2020, 10/03/2019 Tobacco Screening 05/31/2026 05/31/2025 Mammogram 09/10/2026 09/10/2024, 11/2024, 09/10/2024, Additional history exists Cervical Cancer [...] DIPSTICK Routine 05/31/2025 11:34 AM EDT Dysuria CULTURE, URINE, ROUTINE Routine 05/02/2025 8:49 AM EDT Acute UTI POCT URINALYSIS DIPSTICK Routine 05/02/2025 8:48 AM EDT Acute UTI AMB REFERRAL TO UROLOGY Routine 03/26/2025 Cystitis ALBUMIN, RANDOM URINE W/CREATININE Routine 03/14/2025 9:30 AM EDT Type 2 diabetes mellitus without complication, without long-term current use of insulin ([facility]) CBC WITH AUTO DIFFERENTIAL Routine 03/14/2025 9:20 AM EDT Iron deficiency anemia, unspecified iron deficiency anemia type POCT GLYCATED HEMOGLOBIN, TOTAL Routine 03/14/2025 8:59 AM EDT Type 2 diabetes mellitus without complication, without long-term current use of insulin (CMS/HCC) POCT GLUCOSE Routine 03/14/2025 8:59 AM EDT Type 2 diabetes mellitus without complication, without long-term current use of insulin (CMS/HCC) PANORAMIC RADIOGRAPHIC IMAGE Routine 10/01/2024 9:00 AM EST BI US BREAST LIMITED LEFT Routine 09/10/2024 Breast pain, left BITEWING - SINGLE RADIOGRAPHIC IMAGE Routine 09/06/2024 11:30 AM EST LIPID PANEL, STANDARD Routine 09/06/2024 8:08 AM EST Type 2 diabetes mellitus without complication, without long-term current use of insulin ([facility]) Dietary counseling Exercise counseling Atrophic vaginitis Acute vaginitis PROPHYLAXIS - ADULT Routine 07/22/2024 8 :00 AM EST COMPREHENSIVE ORAL EVALUATION - NEW OR ESTABLISHED PATIENT Routine 07/22/2024 8:00 AM EST THINPREP IMAGING PAP AND HPV MRNA E6/E7 WITH REFLEX TO HPV 16,18/45 Routine 03/01/2022 11:03 AM EDT ZZZ HISTORICAL HEPATITIS C ANTIBODY RFLX Routine 10/03/2019 10:32 AM EST Z HISTORICAL HIV AB/AG Routine 10/03/2019 10:32 AM EST COLONOSCOPY Routine 12/17/2015 from Last 3 Months or Most Recently Relevant to Health Maintenance Results * POCT Urinalysis (05/31/2025 11:34 AM EDT) Only the most recent of2 resultswithin the time period is included. Color, UA Light Yellow Clarity, UA Clear Glucose, UA Negative Bilirubin, UA Negative Ketones, UA Negative Spec Grav, UA 1.010 Blood, UA Negative Negative, None Detected pH, UA 6.0 Protein, UA Negative Urobilinogen, UA 0.2 Leukocytes, UA Negative Negative, Rare, Trace Nitrite, UA Negative Negative, None Detected Appearance, UA clear QC Media Lot # [id number] Lot# Expiration Date [id number] Urine (Urine, Random) 05/31/2025 11:34 AM EDT Nikki Dickerson MD POINT OF CARE ENRIQUE T ENTER/EDIT ORDERABLES Final Result * Culture, Urine, Routine (05/02/2025 8:49 AM EDT) Urine Urine specimen obtained by clean catch procedure / Unknown 05/02/2025 8:49 AM EDT 05/02/2025 4:15 PM EDT Comment:UACC Narrative [facility] - 05/04/2025 7:47 AM EDT Escherichia coli Quant > 100,000 cfu/mL Escherichia coli: Ampicillin >=32(R) Escherichia coli: Cefazolin (Urine) >=32(R) Escherichia coli: Cefepime <=0.12(S) Escherichia coli: Ceftriaxone <=0.25(S) Escherichia coli: Ciprofloxacin <=0.06(S) Escherichia coli: Gentamicin >=16(R) Escherichia coli: Nitrofurantoin <=16(S) Escherichia coli: Trimethoprim/Sulfamethoxazole >=320(R) Specimen Source: Urine clean catch Modesto Adrian MD LAB MICROBIOLOGY - GENERAL ORDER RAHEL Final Result Performing Organization Address [facility] de Phone Number [facility] [address] [place] [phone] * Referral to Urology (03/26/2025) Rina Solorio MD OUTPATIENT REFERRAL ORDERABLE S Final Result * (ABNORMAL) Albumin, Random Urine W/Creatinine (03/14/2025 9:30 AM EDT) Creatinine, Urine 56.24 mg/dL [facility] Microalbumin Urine 27.0 mg/L [facility] Microalbum Creatinine Ratio Ur 48.0(H) <30 ug/mg cr [facility] Comment:Albumin/Creatinine R atio Reference Ranges: Normal: < 30 ug/mg creatinine Microalbuminuria: 30 - 300 ug/mg creatinineClinical Albuminuria: > 300 ug/mg creatinine Urine (Urine, Random) 03/14/2025 9:30 AM EDT 03/14/2025 2:33 PM EDT Rina Solorio MD LAB URINE ORDERABLES Final Re sult Performing Organization Address [facility] de Phone Number [facility] [address] [place] [address] [phone] * (ABNORMAL) CBC auto differential (03/14/2025 9:20 AM EDT) White Blood Count 6.4 4.8 - 10.8 X10*3/uL [facility] Red Blood Count 4.24 4.20 - 5.50 X10*6/uL [facility] Hemoglobin 11.5(L) 12.0 - 16.0 g/dl [facility] Hematocrit 34.6(L) 37.0 - 47.0 % [facility] Mean Corpuscular Volume 81.6 80.0 - 98.0 fL [facility] Mean Corpuscular Hemoglobin 27.1 27.0 - 33.0 pg [facility] Mean Corpuscular HGB Conc 33.2 31.0 - 35.0 g/dl [facility] Red Cell Distribution Width 14.0 11.0 - 16.0 % [facility] Platelet Count 256 160 - 400 X10*3/uL [facility] Mean Platelet Volume 10.9 9.4 - 12.3 fL [facility] Neutrophils Percent Auto 66.6 45 - 73 % [facility] Imm Gran Pct Auto 0.3 0.0 - 0.4 % [facility] Lymphocytes Percent Auto 26.7 20 - 40 % [facility] Monocytes Percent Auto 4.1 2 - 11 % [facility] Eosinophils Percent Auto 1.7 0 - 4 % [facility] Basophils Percent Auto 0.6 0 - 2 % [facility] NRBC Pct Auto 0.0 0.0 - 0.2 /100WBC [facility] Neutrophils Absolute Auto 4.2 2.0 - 8.3 x10*3/uL [facility] Imm Gran Abs Auto 0.02 0.00 - 0.03 X10*3/uL [facility] Lymphocytes Absolute Auto 1.7 1.2 - 4.9 X10*3/uL [facility] Monocytes Absolute Auto 0.3 0.1 - 1.2 X10*3/uL [facility] Eosinophils Absolute Auto 0.1 0.0 - 0.4 X10*3/uL [facility] Basophils Absolute Auto 0.0 0.0 - 0.2 X10*3/uL [facility] NRBC Abs Auto 0.000 0.0 - 0.012 X10*3/uL [facility] Blood Venous blood specimen / Unknown 03/14/2025 9:20 AM EDT 03/14/2025 2:46 PM EDT Rina Solorio MD LAB BLOOD ORDERABLES Final Re sult [facility] [address] [place] [phone] * (ABNORMAL) POCT HGB A1C (03/14/2025 [...] CARE TEST ENTER/EDIT ORDERABLES Final Result * BI US Breast Limited Left (09/10/2024) Anatomical Region Laterality Modality Breast Left Ultrasound Misty Krishna MD IMG US PROCEDURES Final Re sult * (ABNORMAL) Lipid Panel, Standard (09/06/2024 8:08 AM EST) Triglycerides 89 <150 mg/dL [facility] Comment:Desirable Triglyceri de: less than 150 mg/dLBorderline High Triglyceride 150-199 mg/dLHigh Triglyceride: 200-499 mg/dLVery High Triglyceride: greater than or equal to 5OO mg/dL Cholesterol 159 <200 mg/dL [facility] Comment:Desirable Cholestero l: less than 200 mg/dLBorderline High Cholesterol: 200-239 mg/dLHigh Cholesterol: greater than 239 mg/dL LDL Cholesterol Calculated 102(H) <100 mg/dL [facility] Comment:Desirable LDL: less than 100 mg/dLNear Optimal/Above Optimal LDL: 110- 129 mg/dLBorderline High LDL: 130-159 mg/dLHigh LDL: 160-189 mg/dLVery High LDL: greater than or equal to 190 mg/dL HDL Cholesterol 40(L) >40 mg/dL [facility] Comment:Desirable HDL: great er than 40 mg/dL Note: This HDL assay may give artificially low results in patients with liver disease. Blood Venous blood specimen / Unknown 09/06/2024 8:08 AM EST 09/06/2024 11:44 AM EST us Rina Solorio MD LAB BLOOD ORDERABLES Final Re sult [facility] [address] [place] [phone] * THINPREP TIS PAP AND HPV mRNA E6/E7 WITH REFLEX TO HPV 16,18/45 (03/01/2022 11:03 AM EDT) Clinical Information: Postmenopausal [facility] COMMENT SEE COMMENT FOUNDATI ON [...] been evaluated with computer assisted technology. [facility] Cytotechnologis t: SEE COMMENT [facility] Comment: CMG, CT(ASCP) CT screening location: [address] [address] HPV nRNA E6/E7 Not Detected Not Detected [facility] Comment: Methodology: Air Conditioner Installer Helper-Mediated Amplification This assay detects E6/E7 viral messenger RNA (mRNA) from 14 high-risk HPV types (16,18,31,33,35,39,45,51,52,56,58,59,66,68). Cervical sources are required for HPV testing. If a vaginal source from a patient who has had a total hysterectomy with removal of cervix was submitted, please contact the testing laboratory for alternative testing options. For additional information, please refer to http://education.Translimit/faq/KFZ777f6 (This link if provided for information/ educational [...] PATHOLOGY ORDERABLES Final Result Performing Organization Address [facility] de Phone Number [facility] [address] * HEPATITIS C ANTIBODY RFLX (10/03/2019 10:32 AM EST) HEPATITIS C ANTIBODY NONREACTIVE NONREACTIVE [facility] Comment: Antibodies to HCV not detected; does not exclude early acute HCV infection. 10/03/2019 10:3 2 AM EST Historical Provider MD HISTORICAL/NON ORDERABLE LABS Final Result Performing Organization Address [facility] Co de Phone Number [facility] [address] * HIV AB/AG (10/03/2019 10:32 AM [...] of detection of this assay. The Jose Chronometer Assembler HIV Ag/Ab Combo assay result and supplemental assay results should be interpreted in conjunction with the patient's clinical presentation, history and other laboratory results. If the results are inconsistent with clinical evidence, additional testing is suggested to confirm the result. 10/03/2019 10:3 2 AM EST Historical Provider HISTORICAL/NON ORDERABLE LABS Final Result [facility] [address] * Colonoscopy (12/17/2015) [facility] Signature Colonoscopy Normal Normal Narrative Gunjan Kendal - 12/17/2015 Recommended 10 year follow up us Historical Provider HEALTH MAINTENANCE Final Result from Last 3 Months or Most Recently Relevant to Health Maintenance Insurance [facility] C3 [facility]AL[facility] MEDICAID STAND ADULT Care Teams [employer] Technical Assistant Relationship Specialty Start Date End Date Rina Solorio MD [address] [place] [phone] PCP - General Family Medicine 12/15/15
--- OUTSIDE RECORDS SUMMARY | 2025-05-31 13:56 | XMS_ITS | Encounter Summary ---
Author Organization [facility] Address [address] [place] [address] Care Team Providers Care Project Manager Finance Name Role Phone Jadiel Daly MD Primary Care Provider [phone] Encounter Details Date Type Department Care Team (Late st Contact Info) Description 03/26/2025 Lab Requisition [facility] [address] [facility] [place] [address] Regan Licea, ILIA [address] [place], [place] [phone] Urinary tract infection, site not specified Social [...] beta-hemolytic Group B(A) 03/27/2025 10:02 AM EDT [facility] ([facility] Comment: Susceptibility testing is not routinely performed for Beta Streptococcus isolates since these organisms are predictably sensitive to Penicillin. If the Patient is not responding, is allergic to Penicillin, or further therapeutic information is requir ed, please consult an Infectious Disease Specialist. Urine Urine specimen obtained by clean catch procedure / Unknown 03/26/2025 8:19 AM EDT 03/26/2025 1:14 PM EDT [facility] Anuja PA LAB MICROBIOLOGY - GENERAL LOIDA JAY Final Result [facility] ([facility]) [facility] [address] [place] [address], documented in this encounter Visit Diagnoses Diagnosis Urinary tract infection, site not specified documented in this encounter Care Teams Project Manager Finance Relationship Specialty Start Date End Date Jadiel Daly MD [address] [place] [address] PCP - General Internal Medicine 03/09/13 documented as of this encounter
--- OUTSIDE RECORDS SUMMARY | 2025-05-31 13:56 | XMS_ITS | Clinical Summary ---
Author Organization [facility] Address [address] [place] [address] Phone Care Team Providers Care Social Services Counselor Name Role Phone Jadiel Daly MD Primary Care Provider [phone] Allergies Active Allergy Reactions Criticality Noted Date Comments Piperacillin-Tazobactam 01/24/2025 Encounters Date Type Department Care Team Description 03/26/[address] [facility] - [facility] Lab [address] [facility] [place] [address] Regan Licea PA Urinary tract [...] Health Maintenance Due Date Last Done Comments Colorectal Cancer Screening: Colonoscopy 1965 Diabetes: Annual Foot Exam 1975 Diabetes: Annual Retina Eye Exam 1975 Cervical Cancer Screening: HPV 1986 Pneumococcal Vaccine: 50+ Years (1 of 1 - PCV) 2015 HIV Screening 07/10/2022 Hepatitis C Screening 07/10/2022 [...] 03/14/2025, 12/12/2024, 09/05/2024 Breast Cancer Screening 09/10/2026 09/10/19, 04/29/2024, 04/24/2023, Additional history exists Cholesterol Screening [...] beta-hemolytic Group B(A) 03/27/2025 10:02 AM EDT [facility] Comment: Susceptibility testing is not [...] MICROBIOLOGY - GENERAL LOIDA JAY Final Result [facility] ([facility]) [facility] [address] [place] [address], [place] [phone] * MG Mammo [facility] w Kale [...] mammography. Mammo Location: [facility], [address] [place] [address], [phone], . -------- FINAL REPORT -------- Dictated By: Faiza Padgett Dictated Date: 09/10/2024 09:39 ET Assigned Physician: Faiza Padgett Reviewed and Electronically Signed By: Faiza Padgett Signed Date: 09/10/2024 09:49 ET Workstation ID: [id number] Transcribed By: Self Edit Transcribed Date: 09/10/2024 [...] mammography. Mammo Location: [facility], [address] [place] [address], [phone], . -------- FINAL REPORT -------- Dictated By: Faiza Padgett Dictated Date: 09/10/2024 09:39 ET Assigned Physician: Faiza Padgett Reviewed and Electronically Signed By: Faiza Padgett Signed Date: 09/10/2024 09:49 ET Workstation ID: [id number] Transcribed By: Self Edit Transcribed Date: 09/10/2024 09:39 ET us Misty Krishna MD IMG BI PROCEDURES Final Re sult from Last 3 Months or Most Recently Relevant to Health Maintenance Insurance MEDICA[place] - [place] Advance Directives Documents on File Type Date Recorded Patient Computer Tape Librarian Expl anation Health Care Decision (hx) 02/27/2013 [...] (hx) 02/20/2013 AD BRAND DIRECTIVE Care Teams Social Services Counselor Relationship Specialty Start Date End Date Jadiel Daly MD [address] [place] [address] PCP - General Internal Medicine 03/09/13
--- OUTSIDE RECORDS SUMMARY | 2025-05-31 13:56 | XMS_ITS | Encounter Summary ---
Author Organization [employer] [facility] Address [address] [place] [address] 7 [place] [address] Care Team Providers Care Occupational Ther Name Role Phone Rina Solorio MD Primary Care Provider [phone] Encounter Details Date Type Department Care Team (Latest Contact Info) Description 12/28/[address] [facility] CONVERSIONS Dental, Provider, DDS Social History [...] on filedocumented in this encounter Care Teams Occupational Ther Relationship Specialty Start Date End Date Rina Solorio MD [address] [place] [address] PCP - General Family Medicine 12/15/15 documented as of this encounter
--- OUTSIDE RECORDS SUMMARY | 2025-05-31 13:56 | XMS_ITS | Encounter Summary ---
Author Organization [employer] Address [address] [facility] 7t [place] [address] Care Team Providers Care Scientific Programmer Analyst Name Role Phone Rina Solorio MD Primary Care Provider [phone] Encounter Details Date Type Department Care Team (Latest Contact Info) Description 05/31/2025 Travel Social History Tobacco Use Types Packs/Day [...] on filedocumented in this encounter Care Teams Scientific Programmer Analyst Relationship Specialty Start Date End Date Rina Solorio MD [address] [place] [address] PCP - General Family Medicine 12/15/15 documented as of this encounter
--- OUTSIDE RECORDS SUMMARY | 2025-05-31 13:57 | XMS_ITS | Encounter Summary ---
Author Organization [employer] Address [address] [place] [address] 7 [place] [address] Care Team Providers Care Records Section Supervisor Name Role Phone Rina Solorio MD Primary Care Provider [phone] Encounter Details Date Type Department Care Team (Late st Contact Info) Description 12/06/2022 Orders Only [facility] CHC MED & PEDS [address] [place] [address] Izabella Anaya LPN Social History Tobacco Use [...] on filedocumented in this encounter Care Teams Records Section Supervisor Relationship Specialty Start Date End Date Rina Solorio MD [address] [place] [address] PCP - General Family Medicine 12/15/15 documented as of this encounter
--- OUTSIDE RECORDS SUMMARY | 2025-05-31 13:57 | XMS_ITS | Encounter Summary ---
Author Organization [employer] Address [address] [facility] 7 [place] [address] Care Team Providers Care Housekeeping Supervisor Hotel Name Role Phone Rina Solorio MD Primary Care Provider [phone] Encounter Details Date Type Department Care Team (Late st Contact Info) Description 06/13/2023 Abstract [facility] MEDICINE [address] [place] [address] Kendal Hollins Social History Tobacco Use Types [...] on filedocumented in this encounter Care Teams Housekeeping Supervisor Hotel Relationship Specialty Start Date End Date Rina Solorio MD [address] [place] [address] PCP - General Family Medicine 12/15/15 documented as of this encounter
--- OUTSIDE RECORDS SUMMARY | 2025-05-31 13:57 | XMS_ITS | Encounter Summary ---
Author Organization [employer] Address [address] [facility] 7 [place] [address] Care Team Providers Care Ocean Export Account Manager Name Role Phone Rina Solorio MD Primary Care Provider [phone] Reason for Visit * Reason Onset Date Comments Appointment Request 08/30/2022 Encounter Details Date Type Department Care Team ([facility] st Contact Info) Description 08/30/2022 Telephone [facility] CHC MED & PEDS [address] [place], [place] [phone] Rina Solorio MD [address] [place] [address] Appointment Request Social History Tobacco Use Types [...] Complete Left If any concerns please contact [phone] Danish Speaker documented in this encounter Plan of Treatment Not on file documented as of this encounter Visit Diagnoses Not on filedocumented in this encounter Care Teams Ocean Export Account Manager Relationship Specialty Start Date End Date Rina Solorio MD [address] [place] [address] PCP - General Family Medicine 12/15/15 documented as of this encounter
[2025-06-01 02:23] LABS: Bacterial Vaginosis PCR NEGATIVE (Negative); Candida Group PCR DETECTED (Not Detect); Candida glab krusei PCR NOT DETECTED (Not Detect); Trichomonas vaginalis PCR NOT DETECTED (Not Detect)
[2025-06-01 02:52] LABS: CT PCR NOT DETECTED (Not Detect.); NG PCR NOT DETECTED (Not Detect.)
== END 2025-05-31 13:54 | disposition home or self-care (01) ==
LOC: HO.HHCLNP 13:53
PROVIDERS: Visit Provider Student in an Organized Health Care Education/Training Program
DX: N89.8 Other specified noninflammatory disorders of vagina (principal); R30.0 Dysuria; Z20.2 Contact with and (suspected) exposure to infections with a predominantly sexual mode of transmission
CPT/HCPCS: 81515; 87086; 87491; 87591

== ENCOUNTER 2025-07-21 16:08 | Outpatient (REF) | payer MEDICAID, SELFPAY ==
--- OUTSIDE RECORDS SUMMARY | 2025-07-21 09:20 | XMS_ITS | Encounter Summary ---
Author Organization [employer] Address [address] [facility] 7 [place] [address] Care Team Providers Care Pockets And Pieces Necktie Operator Name Role Phone Rina Solorio MD Primary Care Provider [phone] Reason for Visit * Reason Comments UTI Encounter Details Date Type Department Care Team ([facility] st Contact Info) Description 07/21/2025 9:20 AM EST Office Visit [facility] [address] [place] [address] Kenny Gentile MD [address] [place] [address] UTI symptoms (Primary Dx); Urinary tract infection without hematuria, site unspecified Social History Tobacco Use Types Packs/Day Years Used Date Smoking Tobacco: Never Passive Smoke Exposure: Never Smokeless Tobacco: Never Alcohol Use Standard Drinks/Week Comments Never 0 (1 standard drink = 0.6 oz pur e alcohol) Depression Answer Date Recorded Patient Health Questionnaire-9 Score 0 06/24/2025 Patient Health Questionnaire-9 Score 0 06/24/2025 Last PHQ-9: Questionnaire Data Not on file 1 08/24/2024 Housing Stability Answer Date Recorded What is your housing situation today? I have moy marcum 06/24/[address] you li ve. Do you have problems with any of the following? None of the above 06/24/2025 Food Insecurity Answer Date Recorded Within the past 12 months, y ou worried that your food would run out before you got money to buy more: Never True 06/24/2025 Within the past 12 months,th e food you bought just didn't last and you didn't have enough money to get more: Never True Transportation Answer Date Recorded In the past 12 months, has l ack of transportation kept you from medical appts, meetings, work or from getting things needed for daily living? No 06/24/2025 Utilities Answer Date Recorded In the past 12 months, has t he electric, gas, oil or water company threatened to shut off services in your home? No 06/24/2025 Depression Answer Date Recorded Patient Health Questionnaire-2 Score 0 06/24/2025 Internet Access Answer Date Recorded Internet Access Q1 Yes 06/24/2025 Internet Access Q2 Not on file 06/24/2025 Comments No Sex and Gender Information Value Date Recorded Sex Assigned at Female 06/06/2022 10:22 AM EDT Legal Sex Female 10:22 AM EDT Gender Identity Female 06/06/2022 10:22 AM EDT Sexual Orientation Choose not to disclose 2021 10:22 AM EDT documented as of this encounter Last Filed Vital Signs Vital Sign Reading Time Taken Comments Blood Pressure 120/76 07/21/2025 8:58 AM EST Pulse 88 07/21/2025 8:58 AM EST Temperature 36.3 C (97.4 F) 07/21/2025 8:58 AM EST Respiratory Rate 20 07/21/2025 8:58 AM EST Oxygen Saturation - - Inhaled Oxygen Concentration - - Weight 57 kg (125 lb 9.6 oz) 07/21/2025 8:58 AM EST Pt had shoes & bag on Height - - Body Mass Index 25.37 05/31/2025 11:23 AM EDT documented in this encounter Progress Notes * Kenny Gentile MD - 07/21/2025 9:20 AM EST SUBJECTIVE Yobany Lamar is a 60 y.o. female who presents for UTI. UTI This is a new problem. The current episode started in the past 7 days. The problem is unchanged. Pertinent negatives include no hematuria or pain. One week h/o dysuria w/o fever. No associated pelvic pain or burning sensation with urination. Pt mostly describes a discomfort w/ urination w/ ? Difficulty urinating. Problem List[1] Allergies[2] Medications Ordered Prior to Encounter[3] Review of Systems Constitutional: Negative for appetite change, chills and diaphoresis. Respiratory: Negative for shortness of breath and stridor. Genitourinary: Positive for dysuria. Negative for hematuria, pelvic pain and vaginal bleeding. Musculoskeletal: Negative for back pain, gait problem and joint swelling. OBJECTIVE Vitals: 07/21/25 0858 BP: 120/76 Pulse: 88 Resp: 20 Temp: 97.4 ??F (36.3 ??C) TempSrc: Temporal Weight: 125 lb 9.6 oz (57 kg) Physical Exam Constitutional: General: She is not in acute distress. Appearance: Normal appearance. She is not ill-appearing, toxic-appearing or diaphoretic. Pulmonary: Effort: Pulmonary effort is normal. Abdominal: General: Abdomen is flat. There is no distension. Palpations: Abdomen is soft. There is no mass. Tenderness: There is no right CVA tenderness or left CVA tenderness. Neurological: Mental Status: She is alert. Assessment/Plan Assessment/Plan Diagnoses and all orders for this visit: UTI symptoms - Culture, Urine, Routine; Future - fosfomycin (Monurol) 3 g packet; Take 3 g by mouth 1 (one) time for 1 dose. Urinary tract infection without hematuria, site unspecified - POCT urinalysis dipstick manually resulted (CPT 85422) - Culture, Urine, Routine; Future - fosfomycin (Monurol) 3 g packet; Take 3 g by mouth 1 (one) time for 1 dose. Pt will be called w/ the culture. The differential was discussed. Pt admits dyspareunia. Advise to use a lubricant during intimacy. Pt will need a follow up to evaluate if she is a candidate for vaginal estrogen. [1] Patient Active Problem List Diagnosis Cystitis Moderate anxiety Vitamin D deficiency Gastroesophageal reflux disease Pelvic pain in female Epigastric pain Elevated blood pressure reading Musculoskeletal pain Glaucoma suspect Breast pain, left Slow transit constipation Acute right-sided low back pain with right-sided sciatica UTI symptoms Acute bacterial conjunctivitis of left eye Type 2 diabetes mellitus without complication, without long-term current use of insulin (HCC) Abnormal uterine bleeding (AUB) [2] Allergies Allergen Reactions Ondansetron Hives Piperacillin Hx that pt took cephalosporin in the past with no problem Piperacillin-Tazobactam In Dex Other reaction(s): throat swelling Shellfish Allergy Itching Other reaction(s): throat swells [3] Current Outpatient Medications on File Prior to Visit Medication Sig Dispense Refill Acetaminophen Extra Strength 500 MG tablet TAKE 2 TABLETS BY MOUTH EVERY 6 HOURS NEEDED FOR MILDOR MODERATE PAIN 60 tablet 1 Alcohol Swabs (SM Alcohol Prep) 70 % pads USE EVERY DAY Ascorbic Acid (vitamin C) 250 MG tablet TAKE ONE TABLET BY MOUTH ONCE DAILY 90 tablet 1 Azo D-Mannose 500 MG capsule Take 1 capsule by mouth Once per day. buPROPion XL (Wellbutrin XL) 300 MG 24 hr tablet cetirizine (ZyrTEC) 10 MG tablet Take 1 tablet (10 mg) by mouth Once per day. (Patient not taking: Reported on 07/14/2025) 90 tablet 3 cholecalciferol (Vitamin D-3) 50 MCG (2000 UT) tablet Take 2,000 Units by mouth in the morning. 90 tablet 5 clotrimazole (Lotrimin) 1 % vaginal cream Insert one applicator per vagina at bedtime for 7 nights (Patient not taking: Reported on 07/14/2025) 45 g 0 cyclobenzaprine (Flexeril) 10 MG tablet Take 1 tablet (10 mg) by mouth 3 times daily for 5 days. (Patient not taking: Reported on 07/14/2025) 15 tablet 0 cyclobenzaprine (Flexeril) 5 MG tablet Take 1 tablet (5 mg) by mouth 3 times daily for 10 days. (Patient not taking: Reported on 07/14/2025) 30 tablet 0 Diclofenac Sodium 1 % gel Apply 2 g topically if needed in the morning, at noon, in the evening, and at bedtime (pain). 150 g 3 EPINEPHrine (EpiPen 2-Kenny) 0.3 MG/0.3ML injection syringe Inject 0.3 mL (0.3 mg) as directed 1 (one) time if needed for anaphylaxis for up to 1 dose. Inject into upper leg. Call 911 after use. 1 each0 estradiol (Estrace) 0.1 MG/GM vaginal cream insert 1 g vaginally twice a week 42.5 g 3 Ferrous Sulfate (iron) 325 (65 Fe) MG tablet Take 1 tab orally daily with 1 oz of orange juice 90 tablet 2 fluticasone (Flonase) 50 MCG/ACT nasal spray Administer 2 sprays into each nostril Once per day. Shake gently. Before first use, prime pump. After use, clean tip and replace cap. (Patient not taking:Reported on 07/14/2025) 16 g 3 FREESTYLE LITE test strip TEST BLOOD SUGAR TWICE DAILY 50 strip 11 ibuprofen 600 MG tablet TAKE 1 TABLET BY MOUTH EVERY 6 HOURS NEEDED FOR MILD PAIN 40 tablet 1 Ketotifen Fumarate 0.035 % solution Administer 1 drop into affected eye(s) if needed in the morningand at bedtime (eye redness, itching). For 7 days 10 mL 0 lidocaine-prilocaine (Emla) 2.5-2.5 % cream Apply topically at bed time. metFORMIN XR (Glucophage-XR) 500 MG 24 hr tablet TAKE 1 TABLET BY MOUTH EVERY DAY IN THE EVENING WITH DINNER metFORMIN XR (Glucophage-XR) 500 MG 24 hr tablet Take 1 tablet (500 mg) by mouth with evening meal.(Patient not taking: Reported on 07/14/2025) 90 tablet 2 prednisoLONE acetate (Pred-Forte) 1 % ophthalmic suspension INSTILL 1 DROP IN THE LEFT EYE FOUR TIMES DAILY FOR 4 DAYS AFTER LASER THEN STOP simethicone (Mylicon,Gas-X) 180 MG capsule take one capsule up to every 6 hours PRN triamcinolone (Kenalog) 0.1 % cream Apply topically if needed in the morning and at bedtime (itch).Up to 4 weeks 30 g 0 TRUEplus Lancets 33G misc TEST BLOOD SUGAR TWICE DAILY 100 each 11 TRUEplus Lancets 33G misc TEST BLOOD SUGAR TWICE DAILY zolpidem (Ambien) 10 MG tablet No current facility-administered medications on file prior to visit. documented in this encounter Plan of Treatment Upcoming Encounters Date Type Department Care Team (Late st Contact Info) Description 08/22/2025 9:30 AM EST Office Visit [facility] ADULT DENTAL [address] [place] [address] Troy Watlon DDS [address] [place] [address] 09/09/2025 8:30 AM EST Office Visit [facility] ADULT DENTAL [address] [place] [address] Troy Walton DDS [address] [place] [address] 12/25/2025 9:30 AM EDT Office Visit [facility] ADULT DENTAL [address] [place] [address] Carina Penaloza [address] [place] [address] Scheduled Orders Name Type Priority Associated Diagnoses Orde r Schedule Culture, Urine, Routine Microbiology Routine Urinary tract infection without hematuria, site unspecified UTI symptoms Expected: 07/21/2025 (Approximate), Expires: 07/21/2026 documented as of this encounter Goals Goal Patient Goal Type Associated Problems Recent Progress Patient-Stated? Author Help patients manage their type 2 diabetes Care Plan Help patients manage their type 2 diabetes No Radha Russell MA Patient has chronic kidney disease Care Plan Patient has chronic kidney disease No Radha Russell MA Patient has chronic kidney disease Care Plan Patient has chronic kidney disease No Radha Russell MA Patient has chronic kidney disease Care Plan Patient has chronic kidney disease No Kayley Ortiz Patient has chronic kidney disease Care Plan Patient has chronic kidney disease No Smith Moyer DDS Patient has chronic kidney disease Care Plan Patient has chronic kidney disease No Shannon Schmidt MA documented as of this encounter Procedures Procedure Name Priority Date/Time Associated Diagnosis Comments POCT URINALYSIS DIPSTICK Routine 07/21/2025 9:16 AM EST Urinary tract infection without hematuria, site unspecified documented in this encounter Results * POCT urinalysis dipstick manually resulted (CPT 02132) (07/21/2025 9:16 AM EST) Color, UA Yellow [facility] Clarity, UA Cloudy [facility] Glucose, UA Negative [facility] Bilirubin, UA Negative [facility] Ketones, UA Negative [facility] Spec Grav, UA 1.010 [facility] Blood, UA Negative Negative, None Detected [facility] pH, UA 6.0 [facility] Protein, UA Negative [facility] Urobilinogen, UA 0.2 [facility] Leukocytes, UA Trace Negative, Rare, Trace, 1+ (17), 2+ (35), 3+ (70), Trace (15) [facility] Nitrite, UA Negative Negative, None Detected [facility] Appearance, UA Clear [facility] QC Media Lot # [id number] [facility] Lot# Expiration Date [facility] Urine (Urine, Random) 07/21/2025 9:16 AM EST us Kenny Gentile MD POINT OF CARE TEST ENTER/ED IT ORDERABLES Final Result [facility] documented in this encounter Visit Diagnoses Diagnosis UTI symptoms- Primary Urinary tract infection without hematuria, site unspecified documented in this encounter Additional Health Concerns Active Problems Noted Date Diagnosed Date Help patients manage their type 2 diabetes 06/23 Patient has chronic kidney disease 06/23/2025 Patient has chronic kidney disease 06/24/2025 Patient has chronic kidney disease 06/26/2025 Patient has chronic kidney disease 07/14/2025 Patient has chronic kidney disease 07/21/2025 Assessment Noted Time PHQ-9 Depression Total Score: 0 06/24/20 9:30 AM EST documented as of this encounter Care Teams Pockets And Pieces Necktie Operator Relationship Specialty Start Date End Date Rina Solorio MD [address] [place] [address] PCP - General Family Medicine 12/15/15 documented as of this encounter
--- OUTSIDE RECORDS SUMMARY | 2025-07-21 22:26 | XMS_ITS | Encounter Summary ---
Author Organization [employer] Address [address] [facility] 7t [place] [address] Care Team Providers Care Employee Relations Director Name Role Phone Rina Solorio MD Primary Care Provider [phone] Encounter Details Date Type Department Care Team (Latest Contact Info) Description 07/21/2025 Travel Social History Tobacco Use Types Packs/Day [...] Description 08/22/2025 9:30 AM EST Office Visit [facility] ADULT DENTAL [address] [place] [address] Troy Walton, [facility] [address] [place] [address] 09/09/2025 8:30 AM EST Office Visit [facility] ADULT DENTAL [address] [place] [address] Troy Walton DDS [address] [place] [address] 12/25/2025 9:30 AM EDT Office Visit [facility] ADULT DENTAL [address] [place] [address] Carina Penaloza [address] [place] [address] documented as of this encounter Goals Goal [...] Schmidt MA documented as of this encounter Visit Diagnoses Not on filedocumented in this encounter Additional Health Concerns Active Problems Noted Date Diagnosed Date Help patients manage their type 2 diabetes 06/23 Patient has chronic kidney disease 06/23/2025 Patient has chronic kidney disease 06/24/2025 Patient has chronic kidney disease 06/26/2025 Patient has chronic kidney disease 07/14/2025 Patient has chronic kidney disease 07/21/2025 Assessment Noted Time PHQ-9 Depression Total Score: 0 06/24/20 25 9:30 AM EST documented as of this encounter Care Teams Employee Relations Director Relationship Specialty Start Date End Date Rina Solorio MD [address] [place] [address] PCP - General Family Medicine 12/15/15 documented as of this encounter
--- OUTSIDE RECORDS SUMMARY | 2025-07-21 22:26 | XMS_ITS | Encounter Summary ---
Author Organization [facility] Address [address] [place] [address] Care Team Providers Care Hardwood Faller Name Role Phone Jadiel Daly MD Primary Care Provider [phone] Encounter Details Date Type Department Care Team (Late st Contact Info) Description 03/26/2025 Lab Requisition [facility] - Main Lab [address] [facility] [place] [address] Regan Licea, [address] [place], [place] [phone] Urinary tract infection, site not specified Social [...] beta-hemolytic Group B(A) 03/27/2025 10:[address] [facility] Comment: Susceptibility testing is not routinely performed for Beta Streptococcus isolates since these organisms are predictably sensitive to Penicillin. If the Patient is not responding, is allergic to Penicillin, or further therapeutic information is requir ed, please consult an Infectious Disease Specialist. Urine Urine specimen obtained by clean catch procedure / Unknown 03/26/2025 8:19 AM EDT 03/26/2025 1:14 PM EDT [facility] Anuja PA LAB MICROBIOLOGY - GENERAL LOIDA JAY Final Result [facility] [address] [place] [address], documented in this encounter Visit Diagnoses Diagnosis Urinary tract infection, site not specified documented in this encounter Care Teams Hardwood Faller Relationship Specialty Start Date End Date Jadiel Daly MD [address] [place] [address] PCP - General Internal Medicine 03/09/13 documented as of this encounter
--- OUTSIDE RECORDS SUMMARY | 2025-07-21 22:26 | XMS_ITS | Clinical Summary ---
Author Organization [employer] Address [address] [place] [address] [address] [place] [address] Care Team Providers Care Tire Builder Operator Name Role Phone Rina Solorio MD Primary Care Provider [phone] Allergies Active Allergy Reactions Criticality Noted Date Comments Ondansetron Hives 10/19/2016 Piperacillin 01/05/2013 Hx that pt took cephalosporin in the past with no problem Piperacillin-Tazobactam In Dex 02/02/2023 Other reaction(s): throat swelling Shellfish Allergy Itching Low 07/27/2022 Other reaction(s): throat swells Medications Alcohol Swabs (SM Alcohol Prep) 70 % pads USE EVERY DAY 2 Active lidocaine-prilo evangelina (Emla) 2.5-2.5 % cream [...] 3 Active cholecalciferol (Vitamin D-3) 50 MCG (2000 [...] for 5 days. 15 tablet 5 Active Additional Information Patient not taking.Reported on 07/14/2025 estradiol (Estrace) 0.1 MG/GM vaginal cream insert 1 g vaginally twice a week 42.5 g 3 5 Active cetirizine (ZyrTEC) 10 MG tablet Take 1 tablet (10 mg) by mouth Once per day. 90 tablet 3 5 12/08/19 26 Active Additional Information Patient not taking.Reported on 07/14/2025 Ferrous Sulfate (iron) 325 (65 Fe) MG [...] mL 5 Active cyclobenzaprine (Flexeril) 5 MG tabletIndicatio ns:Acute right-sided low back pain with right-sided sciatica Take 1 tablet (5 mg) by mouth 3 times daily for 10 days. 30 tablet 5 Active Additional Information Patient not taking.Reported on 07/14/2025 metFORMIN XR (Glucophage-XR) 500 MG 24 hr tablet TAKE 1 TABLET BY MOUTH EVERY DAY IN THE EVENING WITH DINNER 5 Active fluticasone (Flonase) 50 MCG/ACT nasal spray Administer 2 sprays into each nostril Once per day. Shake gently. Before first use, prime pump. After use, clean tip and replace cap. 16 g 3 5 02/22/20 26 Active Additional Information Patient not taking.Reported on 07/14/2025 Diclofenac Sodium 1 % gel Apply 2 [...] evening meal. 90 tablet 2 5 Active Additional Information Patient not taking.Reported on 07/14/2025 EPINEPHrine (EpiPen 2-Kenny) 0.3 MG/0.3ML injection syringeIndicati ons:Insect sting allergy, current reaction, accidental or unintentional, initial encounter Inject 0.3 mL (0.3 mg) as directed 1 (one) time if needed for anaphylaxis for up to 1 dose. Inject into upper leg. Call 911 after use. 1 each Active triamcinolone (Kenalog) 0.1 % creamIndication s:Xerosis of skin,Scar Apply topically if needed in the morning and at bedtime (itch). Up to 4 weeks 30 g 5 Active Acetaminophen Extra Strength 500 MG tablet TAKE 2 TABLETS BY MOUTH EVERY 6 HOURS NEEDED FOR MILD OR MODERATE PAIN 60 tablet 1 5 Active ibuprofen 600 MG tablet TAKE 1 TABLET BY MOUTH EVERY 6 HOURS NEEDED FOR MILD PAIN 40 tablet 1 5 Active clotrimazole (Lotrimin) 1 % vaginal creamIndication s:Vulvovaginal Candidiasis Insert one applicator per vagina at bedtime for 7 nights 45 g 5 Active Additional Information Patient not taking.Reported on 07/14/2025 buPROPion XL (Wellbutrin XL) 300 MG 24 hr tablet Active Azo D-Mannose 500 MG capsule Take 1 capsule by mouth Once per day. 5 Active zolpidem (Ambien) 10 MG tablet 5 Active fosfomycin (Monurol) 3 g packetIndicatio ns:Urinary tract infection without hematuria, site unspecified,UTI symptoms Take 3 g by mouth 1 (one) time for 1 dose. 3 g 5 07/21/20 Active fluconazole (Diflucan) 150 MG tablet Take 1 tablet (150 mg) by mouth 1 (one) time for 1 dose. 1 tablet 06/24/2025 10:25 AM EST 5 06/25/20 25 Additional Information Patient not taking.Reported on 06/26/2025 Active Problems Problem Noted Date Diagnosed Date [...] already for chronic cystitis -advised pt to call center professional if symptoms recurs -urine dipstick is neg [...] vit C --to get D mannose at [facility] or [facility] -confirmed w px they dont have it ,if no better advised pt to f up w urologist for chronic cystitis Moderate anxiety 10/19/2016 Vitamin D deficiency 03/14/2016 Resolved Problems Problem Noted Date Diagnosed Date Resolved Date Vaginal candidiasis 07/18/2024 02/15/20 Assessment & Plan (07/18/2024 9:33 AM EST): [...] improvement in 72 h to return to [facility] or ED Straining during bowel movements 03/30/2023 [...] Encounters Date Type Department Care Team Description 07/21/2025 9:20 AM EST Office Visit [facility] [address] [place] [phone] Kenny Gentile MD UTI symptoms (Primary Dx); Urinary tract infection without hematuria, site unspecified 07/21/2025 Travel 07/14/2025 1:00 PM EST Office Visit [facility] [address] [place] [address] Smith Moyer, DDS 06/26/2025 8:45 AM EST Office Visit [facility] [address] [place] [address] Kayley Ortiz Dental calculus (Primary Dx); Dental plaque 06/24/2025 9:45 AM EST Office Visit [facility] [address] [place] [address] Rina Solorio MD Type 2 diabetes mellitus without complication, without long-term current use of insulin ([facility]) 06/24/2025 Travel 06/23/2025 Telephone [facility] [address] [place] [address] Rina Solorio MD Chart Prep 06/11/2025 Travel 06/09/2025 Telephone [facility] [address] [place] [address] Rina Solorio MD Provider out/ rs appt 06/02/2025 Results Follow-Up [facility] [address] [place] [phone] Nikki Quiroz MD Chlamydia/N. Gonorrhoeae RNA, TMA, Vaginal, Bacterial Vaginosis Panel, POCT Urinalysis, Culture, Urine, Routine 06/02/2025 Orders Only [address] [address] Nikki Quiroz MD 05/31/2025 11:20 AM EDT [facility] [address] [address] Nikki Quiroz MD Type 2 diabetes mellitus without complication, without long-term current use of insulin (HCC) (Primary Dx); Vagina itching; Dysuria; Abnormal uterine bleeding (AUB); UTI symptoms 05/31/2025 Travel 05/15/[address] [facility] [address] [address] Adrienne Nava, 05/13/[address] [facility] [address] [address] Adrienne Nava, 05/07/2025 Orders Only [address] [address] Yaw Jones MD 05/05/2025 Results Follow-Up [facility] [address] [place] [address] Modesto Adrian MD POCT urinalysis dipstick manually resulted, Culture, Urine, Routine 05/02/2025 8:40 AM EDT [facility] [address] [address] Modesto Adrian MD Acute UTI 05/02/2025 Travel 04/25/2025 9:45 AM EDT Office Visit [address] [address] Cara Tipton MD Xerosis of skin (Primary Dx); Scar 04/25/2025 Travel 04/22/2025 Orders Only [facility] [address] [place] [address] Rina Solorio MD Dermatitis (Primary Dx) from Last 3 Months Immunizations Immunization Administration [...] 20 07/21/2025 8:58 AM EST Oxygen Saturation 100% 05/31/2025 11: 23 AM EDT Inhaled Oxygen Concentration - - Weight 57 kg (125 lb 9.6 oz) 07/21/2025 8:58 AM EST Pt had shoes & bag on Height 149.9 cm (4' 11 ) 05/31/2025 11: 23 AM EDT Body Mass Index 25.37 05/31/2025 11:23 AM EDT Plan of Treatment Upcoming Encounters Date Type Department Care Team (Late st Contact Info) Description 08/22/2025 9:30 AM EST Office Visit [facility] [address] [place] [address] Troy Walton, DDS [address] [place] [address] 09/09/2025 8:30 AM EST Office Visit [facility] [address] [place] [address] Troy Walton, DDS [address] [place] [address] 12/25/2025 9:30 AM EDT Office Visit [facility] [address] [place] [address] Ca, Carina [address] [place] [address] Health Maintenance Due Date Last Done Comments CT Colonography 1965 FIT DNA/Cologuard 1965 FIT 1965 FOBT 1965 Sigmoidoscopy 1965 Diabetes: Foot Exam 1975 Eye Exam 1975 Pneumococcal Vaccine: 50+ Years (1 of 2 - PCV) 1984 DTaP/Tdap/Td Vaccines (2 - Td or Tdap) 08/26/2024 08/26/2014 COVID-19 Vaccine ( season) 2025 11/17/2021, 06/17/2021, 11/16/2020, Additional history exists Influenza Vaccine (#1) 2025 , 06/17/2021, 05/14/2020, Additional history exists Lipid Panel 09/06/2025 09/06/2024, 12/2020, 05/15/2020, Additional history exists Colonoscopy 12/16/2025 12/17/2015 Colorectal Cancer Screening 12/16/2025 Diabetes: Hemoglobin A1C 12/22/2025 025, 03/14/2025, 12/12/2024, Additional history exists Dental Oral Exam 12/25/2025 06/26/2025, , 12/28/2021, Additional history exists Dental Prophylaxis 12/25/2025 06/26/2025, 1 09/22/2023, 12/28/2021, Additional history exists Diabetes: Urine Protein Screening 03/14/2026 03/14/2025, 04/02/2020, 10/03/2019 Alcohol/Substance Use Screening 06/24/2026 06/24/2025 Depression Screening 06/24/2026 06/24/2025, 06/24/20 25 Disability Screening 06/24/2026 06/24/2025 SDOH Screening 06/24/2026 06/24/2025 Dental X-Ray: Bitewings 06/27/2026 06/26/20 25, 09/06/2024, 08/27/2024, Additional history exists Tobacco Screening 07/21/2026 07/21/2025 Mammogram 09/10/2026 09/10/2024, 11/2024, 09/10/2024, Additional history [...] on patient's age to complete this topic Goals Goal Patient Goal Type Associated Problems [...] chronic kidney disease No Shannon Schmidt MA Procedures Procedure Name Priority Date/Time Associated Diagnosis Comments POCT URINALYSIS DIPSTICK Routine 07/21/2025 9:16 AM EST Urinary tract infection without hematuria, site unspecified CONSULTATION - DIAGNOSTIC SERVICE PROVIDED BY DENTIST OR PHYSICIAN OTHER THAN REQUESTING DENTIST OR PHYSICIAN Routine 07/14/2025 1:00 PM EST CASE PRESENTATION, DETAILED AND EXTENSIVE TREATMENT PLANNING Routine 07/14/2025 1:00 PM EST COMPREHENSIVE PERIODONTAL EVALUATION - NEW OR ESTABLISHED PATIENT Routine 06/26/2025 8:45 AM EST PERIODIC ORAL EVALUATION - ESTABLISHED PATIENT Routine 06/26/2025 8:45 AM EST INTRAORAL - PERIAPICAL EACH ADDITIONAL RADIOGRAPHIC IMAGE Routine 06/26/2025 8:45 AM EST INTRAORAL - PERIAPICAL FIRST RADIOGRAPHIC IMAGE Routine 06/26/2025 8:45 AM EST BITEWINGS - 4 RADIOGRAPHIC IMAGES Routine 06/26/2025 8:45 AM EST ORAL HYGIENE INSTRUCTIONS Routine 06/26/2025 8:45 AM EST CASE PRESENTATION, DETAILED AND EXTENSIVE TREATMENT PLANNING Routine 06/26/2025 8:45 AM EST Full PROPHYLAXIS - ADULT Routine 06/26/2025 8:45 AM EST POCT URINALYSIS DIPSTICK Routine 06/24/2025 9:55 AM EST Type 2 diabetes mellitus without complication, without long-term current use of insulin (HCC) POCT GLYCATED HEMOGLOBIN, TOTAL Routine 06/24/2025 9:54 AM EST Type 2 diabetes mellitus without complication, without long-term current use of insulin (HCC) POCT GLUCOSE Routine 06/24/2025 9:54 AM EST Type 2 diabetes mellitus without complication, without long-term current use of insulin ([facility]) CULTURE, URINE, ROUTINE Routine 05/31/2025 11:49 AM EDT Dysuria POCT URINALYSIS DIPSTICK Routine 05/31/2025 11:34 AM EDT Dysuria BACTERIAL VAGINOSIS PANEL Routine 05/31/2025 11:26 AM EDT Vagina itching CHLAMYDIA/N. GONORRHOEAE RNA, TMA, UROGENITAL Routine 05/31/2025 11:26 AM EDT Vagina itching CULTURE, URINE, ROUTINE Routine 05/02/2025 8:49 AM EDT Acute UTI POCT URINALYSIS DIPSTICK Routine 05/02/2025 8:48 AM EDT Acute UTI ALBUMIN, RANDOM URINE W/CREATININE Routine 03/14/2025 9:30 AM EDT Type 2 diabetes mellitus without complication, without long-term current use of insulin ([facility]) PANORAMIC RADIOGRAPHIC IMAGE Routine 10/01/2024 9:00 AM EST BI US BREAST LIMITED LEFT Routine 09/10/2024 Breast pain, left LIPID PANEL, STANDARD Routine 09/06/2024 8:08 AM EST Type 2 diabetes mellitus without complication, without long-term current use of insulin ([facility]) Dietary counseling Exercise counseling Atrophic vaginitis Acute vaginitis THINPREP IMAGING PAP AND HPV MRNA E6/E7 WITH REFLEX TO HPV 16,18/45 Routine 03/01/2022 11:03 AM EDT [facility] HISTORICAL HEPATITIS C ANTIBODY RFLX Routine 10/03/2019 10:32 AM EST [facility] HISTORICAL HIV AB/AG Routine 10/03/2019 10:32 AM EST [facility] COLONOSCOPY Routine 12/17/2015 from Last 3 Months or Most Recently Relevant to Health Maintenance Results * POCT urinalysis dipstick manually resulted (CPT 85577) (07/21/2025 9:16 AM EST) Only the most recent of4 resultswithin the time period is included. Color, UA Yellow [facility] Clarity, UA Cloudy [facility] Glucose, UA Negative [facility] Bilirubin, UA Negative [facility] Ketones, UA Negative [facility] Spec Grav, UA 1.010 [facility] Blood, UA Negative Negative, None Detected [facility] pH, UA 6.0 [facility] Protein, UA Negative [facility] Urobilinogen, UA 0.2 [facility] Leukocytes, UA Trace Negative, Rare, Trace, 1+ (17), 2+ (35), 3+ (70), Trace (15) [facility] Nitrite, UA Negative Negative, None Detected [facility] Appearance, UA Clear [facility] QC Media Lot # [id number] [facility] Lot# Expiration Date [facility] Urine (Urine, Random) 07/21/2025 9:16 AM EST Kenny Gentile MD POINT OF CARE TEST ENTER/ED IT ORDERABLES Final Result [facility] * (ABNORMAL) POCT Hgb A1c (06/24/2025 9:54 AM EST) Hemoglobin A1C 6.2(A) 4.0 - 5.7 % QC Media Lot # [id number] Lot# Expiration Date [id number] Blood 06/24/2025 9:54 AM EST Rina Solorio MD POINT OF CARE TEST ENTER/EDIT ORDERABLES Final Result * POCT Glucose (06/24/2025 9:54 AM EST) Glucose Blood, POC 132 60 - 200 mg/dL [facility] Media Lot # [id number] Lot# Expiration Date 2,826 Blood Capillary blood specimen / Unknown 06/24/2025 9:54 AM EST Rina Solorio MD POINT OF CARE TEST ENTER/EDIT ORDERABLES Final Result * Culture, Urine, Routine (05/31/2025 11:49 AM EDT) Only the most recent of2 resultswithin the time period is included. Urine Urine specimen obtained by clean catch procedure / Unknown 05/31/2025 11:49 AM EDT 05/31/2025 1:55 PM EDT Comment:UACC Narrative [facility] - 06/01/2025 11:27 AM EDT Urine Culture No growth. Specimen Source: Urine clean catch Nikki Dickerson MD LAB MICROBIOLOGY - GENERAL ORDERABLES Final Result Performing Organization Address [facility]/ZIP Co de Phone Number [facility] [address] [place] [phone] * (ABNORMAL) Bacterial Vaginosis Panel (05/31/2025 11:26 AM EDT) TRICHOMONAS VAGINALIS DETECTION BY PCR NOT DETECTED Not Detect [facility] BACTERIAL VAGINOSIS DETECTION BY PCR NEGATIVE Negative [facility] Comment:The BV organism targ ets of [...] of 14. MAYDA GROUP DETECTION BY PCR DETECTED(A) Not Detect [facility] Mayda glab krusei PCR NOT DETECTED Not Detect [facility] Swab Vaginal structure / Unknown 05/31/2025 11:26 AM EDT 05/31/2025 1:55 PM EDT Nikki Dickerson MD LAB MICROBIOLOGY - GENERAL ORDERABLES Final Result Performing Organization Address [facility] Co de Phone Number [facility] [address] [place] [phone] * Chlamydia/N. Gonorrhoeae RNA, TMA, Vaginal (05/31/2025 11:26 AM EDT) CT PCR NOT DETECTED Not Detect. [facility] Comment:A not detected test result does not exclude the possibilityof infection because test results can be affected byimproper specimen collection, concurrent antibiotic therapy,or the number of organisms in the specimen which may bebelow the sensitivity of the test. As with many diagnostictests, results from the Xpert CT/NG assay should beinterpreted in conjunction with other laboratory andclinical data available to the clinician.Xpert CT/NG performance has not been evaluated in patientsless than 14 years of age. The assay should not be used forthe evaluationof suspected sexual abuse or for other medico-legalindications. Additional testing is recommended in anycircumstance when false positive or false negative resultscould lead to adverse medical, social or psychologicalconsequences. NG PCR NOT DETECTED Not Detect. [facility] Comment:A not detected test result does not exclude the possibilityof infection because test results can be affected byimproper specimen collection, concurrent antibiotic therapy,or the number of organisms in the specimen which may bebelow the sensitivity of the test. As with many diagnostictests, results from the Xpert CT/NG assay should beinterpreted in conjunction with other laboratory andclinical data available to the clinician.Xpert CT/NG performance has not been evaluated in patientsless than 14 years of age. The assay should not be used forthe evaluationof suspected sexual abuse or for other medico-legalindications. Additional testing is recommended in anycircumstance when false positive or false negative resultscould lead to adverse medical, social or psychologicalconsequences. Swab (Vaginal Swab) 05/31/2025 11:26 AM EDT 05/31/2025 1:55 PM EDT us Nikki Dickerson MD LAB MICROBIOLOGY - GENERAL ORDERABLES Final Result [facility] [address] [place] [phone] * (ABNORMAL) Albumin, Random Urine W/Creatinine (03/14/2025 9:30 AM EDT) Creatinine, Urine 56.24 mg/dL [facility] Microalbumin Urine 27.0 mg/L H [facility] Microalbum Creatinine Ratio Ur 48.0(H) <30 ug/mg cr [facility] Comment:Albumin/Creatinine R atio Reference Ranges: Normal: < 30 ug/mg creatinine Microalbuminuria: 30 - 300 ug/mg creatinineClinical Albuminuria: > 300 ug/mg creatinine Urine (Urine, Random) 03/14/2025 9:30 AM EDT 03/14/2025 2:33 PM EDT Rina Solorio MD LAB URINE ORDERABLES Final Re sult [facility] [address] [place] [phone] [phone] * BI US Breast Limited Left (09/10/2024) Anatomical Region Laterality Modality Breast Left Ultrasound Misty Krishna MD IMG US PROCEDURES Final Re sult * (ABNORMAL) Lipid Panel, Standard (09/06/2024 8:08 AM EST) Triglycerides 89 <150 mg/dL [facility] Comment:Desirable Triglyceri de: less than 150 mg/dLBorderline High Triglyceride 150-199 mg/dLHigh Triglyceride: 200-499 mg/dLVery High Triglyceride: greater than or equal to 5OO mg/dL Cholesterol 159 <200 mg/dL [facility] Comment:Desirable Cholestero l: less than 200 mg/dLBorderline High Cholesterol: 200-239 mg/dLHigh Cholesterol: greater than 239 mg/dL LDL Cholesterol Calculated 102(H) <100 mg/dL [facility] Comment:Desirable LDL: less than 100 mg/dLNear Optimal/Above Optimal LDL: 110- 129 mg/dLBorderline High LDL: 130-159 mg/dLHigh LDL: 160-189 mg/dLVery High LDL: greater than or equal to 190 mg/dL HDL Cholesterol 40(L) >40 mg/dL [facility] Comment:Desirable HDL: grea ter than 40 mg/dL Note: This HDL assay may give artificially low results in patients with liver disease. Blood Venous blood specimen / Unknown 09/06/2024 8:08 AM EST 09/06/2024 11:44 AM EST us Rina Solorio MD LAB BLOOD ORDERABLES Final Re sult [facility] [address] [place] [address] [phone] * THINPREP TIS PAP AND HPV [...] along with historic and current clinical information. Comment: This Pap test has been evaluated with computer assisted technology. [facility] Cytotechnologis t: SEE COMMENT [facility] Comment: CMG, CT(ASCP) CT screening location: [place] [address] HPV nRNA E6/E7 Not Detected Not Detected [facility] Comment: Methodology: Hardware Installer-Mediated Amplification This assay detects E6/E7 viral messenger RNA (mRNA) from 14 high-risk HPV types (16,18,31,33,35,39,45,51,52,56,58,59,66,68). Cervical sources are required for HPV testing. If a vaginal source from a patient who has had a total hysterectomy with removal of cervix was submitted, please contact the testing laboratory for alternative testing options. For additional information, please refer to [email or web address] (This link if provided for information/ educational [...] Leyva CNM LAB PATHOLOGY ORDERABLES Final Result [facility] [address] [place] [address], * HEPATITIS C ANTIBODY RFLX (10/03/2019 10:32 AM EST) Pathologist [facility] HEPATITIS C ANTIBODY NONREACTIVE NONREACTIVE [facility] Comment: Antibodies to HCV not detected; does not exclude early acute HCV infection. 10/03/2019 10:3 2 AM EST [facility] Provider HISTORICAL/NON ORDERABLE LABS Final Result Performing Organization Address [facility] de Phone Number [facility] [address] [place] [address], [place] * HIV AB/AG (10/03/2019 10:32 AM EST) [facility] HIV AG/AB NONREACTIVE NR FOUNDAT[facility] ON LAB [...] of detection of this assay. The [employer] Printing Machine Setter HIV Ag/Ab Combo assay result and supplemental assay results should be interpreted in conjunction with the patient's clinical presentation, history and other laboratory results. If the results are inconsistent with clinical evidence, additional testing is suggested to confirm the result. 10/03/2019 10:3 2 AM EST [facility] Provider HISTORICAL/NON ORDERABLE LABS Final Result Performing Organization Address [facility] Phone Number [facility] [address] [place] [address], [place] * Hm Colonoscopy (12/17/2015) Pathologist [facility] Colonoscopy Normal Normal Narrative Kendal Hollins - 12/17/2015 Recommended 10 year follow up Javi Loera MD HEALTH MAINTENANCE Final Result from Last 3 Months or Most Recently Relevant to Health Maintenance Additional Health Concerns Active Problems Noted Date Diagnosed Date Help patients manage their type 2 diabetes 06/23 Patient has chronic kidney disease 06/23/2025 Patient has chronic kidney disease 06/24/2025 Patient has chronic kidney disease 06/26/2025 Patient has chronic kidney disease 07/14/2025 Patient has chronic kidney disease 07/21/2025 Insurance [facility] C3 DENTAL-[facility] MEDICAID STAND ADULT Care Teams Tire Builder Operator Relationship Specialty Start Date End Date Rina Solorio MD [address] [place] [phone] PCP - General Family Medicine 12/15/15
--- OUTSIDE RECORDS SUMMARY | 2025-07-21 22:26 | XMS_ITS | Clinical Summary ---
Author Organization [facility] Address [address] [place] [address] Phone Care Team Providers Care Harmonica Maker Name Role Phone Jadiel Daly MD Primary Care Provider [phone] Allergies Active Allergy Reactions Criticality Noted Date Comments Piperacillin-Tazobactam 01/24/2025 Surgical History Surgery Date Site/Laterality Comments SECTION PROCEDURE: PA DELIVERY ONLY; COMMENT: x 5 OTHER SURGICAL HISTORY PROCEDURE: PA UNLISTED LAPAROSCOPY PROCEDURE UTERUS Medical History Medical [...] Done Comments Colorectal Cancer Screening: Colonoscopy 1965 Cervical Cancer Screening: HPV 1986 Pneumococcal Vaccine: 50+ Years (1 of 1 - PCV) 2015 HIV Screening 07/10/2022 Hepatitis C Screening 07/10/2022 Social Influencers of Health Screening 07/10/2022 Depression Screening 08/07/2024 DTaP,Tdap,and Td Vaccines (2 - Td or Tdap) 08/26/2024 08/26/2014 COVID-19 Vaccine ( - season) 2025 11/17/2021, 06/17/2021, 11/16/2020, Additional history exists Influenza Vaccine (#1) 2025 , 05/14/2020, 05/09/2018, Additional history exists Breast Cancer Screening 09/10/2026 09/10/19, 04/29/2024, 04/24/2023, [...] Mammo Location: [facility], [address] [place] [address], [phone], . -------- FINAL REPORT -------- Dictated By: Faiza Padgett Dictated Date: 09/10/2024 09:39 ET Assigned Physician: Faiza Padgett Reviewed and Electronically Signed By: Faiza Padgett Signed Date: 09/10/2024 09:49 ET Workstation ID: [id number] Transcribed By: Self Edit Transcribed Date: 09/10/2024 [...] Mammo Location: [facility], [address] [place] [address], [id number], . 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
--- OUTSIDE RECORDS SUMMARY | 2025-07-21 22:27 | XMS_ITS | Encounter Summary ---
Author Organization [employer] Address [address] [place] [address] [address]t [place] [address] Care Team Providers Care Medical Dosimetrist Name Role Phone Rina Solorio MD Primary Care Provider [phone] Reason for Visit * Reason Comments Med Refill Encounter Details Date Type Department Care Team (Late Contact Info) Description 12/06/2022 Refill [facility] MED & PEDS [address] [place], [place] [phone] Rina Solorio MD [address] [place] [address] Social History Tobacco Use Types Packs/Day Years [...] Department Care Team (Late Contact Info) Description 08/22/2025 9:30 AM EST Office Visit [facility] ADULT DENTAL [address] [place] [address] Troy Walton DDS [address] [place] [address] 09/09/2025 8:30 AM EST Office Visit [facility] ADULT [facility]ENT[facility] [address] [place], [place] [phone] IsabelleTroy DDS [address] [place], [place] [phone] 12/25/2025 9:30 AM EDT Office Visit [facility] ADULT [facility] [address] [place], [place] [phone] Carina Penaloza [address] [place] [address] documented as of this encounter Visit Diagnoses Not on filedocumented in this encounter Care Teams Medical Dosimetrist Relationship Specialty Start Date End Date Rina Solorio MD [address] [place] [phone] PCP - General Family Medicine 12/15/15 documented as of this encounter
--- OUTSIDE RECORDS SUMMARY | 2025-07-21 22:27 | XMS_ITS | Encounter Summary ---
Author Organization [employer] Address [address] [facility] 7 [place] [address] Care Team Providers Care Media Executive Name Role Phone Rina Solorio MD Primary Care Provider Reason for Visit * Reason Onset Date Comments Appointment Request 08/30/2022 Encounter Details Date Type Department Care Team ([facility] st Contact Info) Description 08/30/2022 Telephone [facility] CH[facility] MED & PEDS [address] [place], [place] [phone] Rina Solorio MD [address] [place] [address] Appointment Request Social History Tobacco Use Types [...] Complete Left If any concerns please contact [phone] Tamazight Speaker documented in this encounter Plan of Treatment Upcoming Encounters Date Type Department Care Team (Late st Contact Info) Description 08/22/2025 9:30 AM EST Office Visit [facility] ADULT DENTAL [address] [place] [address] Pepe Waltondra, DDS [address] [place] [address] 09/09/2025 8:30 AM EST Office Visit [facility] ADULT DENTAL [address] [facility] [place] [address] IsabelleTroy, DDS [address] [place] [address] 12/25/2025 9:30 AM EDT Office Visit [facility] ADULT DENTAL [address] [facility] [place] [place] [address] Ca, Carina [address] [facility] [place] [address] documented as of this encounter Visit Diagnoses Not on filedocumented in this encounter Care Teams Media Executive Relationship Specialty Start Date End Date Rina Solorio MD [address] [place] [address] PCP - General Family Medicine 12/15/15 documented as of this encounter
--- OUTSIDE RECORDS SUMMARY | 2025-07-21 22:27 | XMS_ITS | Encounter Summary ---
Author Organization [facility] Address [address] [place] [address] 7[address] [place] [address] Care Team Providers Care Court Transcriber Name Role Phone Rina Soloiro MD Primary Care Provider [phone] Encounter Details Date Type Department Care Team (Late Contact Info) Description 06/13/2023 Abstract [facility] MEDICINE [address] [place] [address] Kendal Hollins Social History Tobacco Use Types [...] Description 08/22/2025 9:30 AM EST Office Visit [facility] ADULT DENTAL [address] [place] [address] Troy Walton DDS [address] [place] [address] 09/09/2025 8:30 AM EST Office Visit [facility] ADULT DENTAL [address] [place] [address] Troy Walton DDS [address] [place] [address] 12/25/2025 9:30 AM EDT Office Visit [facility] ADULT DENTAL [address] [place], [place] [phone] Carina Penaloza [address] [place] [address] documented as of this encounter Procedures Procedure Name Priority Date/Time Associated Diagnosis Comments COLONOSCOPY Routine 12/17/2015 documented in this encounter Results * Hm Colonoscopy (12/17/2015) Colonoscopy Normal Normal Narrative Kendal Hollins - 12/17/2015 Recommended 10 year follow up Historical Provider HEALTH MAINTENANCE Final Result documented in this encounter Visit Diagnoses Not on filedocumented in this encounter Care Teams Court Transcriber Relationship Specialty Start Date End Date Rina Solorio MD [address] [place] [id number] PCP - General Family Medicine 12/15/15 documented as of this encounter
--- OUTSIDE RECORDS SUMMARY | 2025-07-21 22:27 | XMS_ITS | Encounter Summary ---
Author Organization [facility] Address [address] [facility] [address] [place] [address] Care Team Providers Care Cloth Bolt Bander Name Role Phone Rina Solorio MD Primary Care Provider [phone] Encounter Details Date Type Department Care Team (Latest Contact Info) Description 12/28/2021 Abstract [facility] CONVERSIONS Dental, Provider, DDS Social History [...] Description 08/22/2025 9:30 AM EST Office Visit [facility] ADULT DENTAL [address] [place] [address] Troy Walton DDS [address] [place] [address] 09/09/2025 8:30 AM EST Office Visit [facility] ADULT DENTAL [address] [place] [address] Troy Walton DDS [address] [place] [address] 12/25/2025 9:30 AM EDT Office Visit [facility] ADULT DENTAL [address] [place] [address] Carina Penaloza [address] [place] [address] documented as of this encounter Visit Diagnoses Not on filedocumented in this encounter Care Teams Cloth Bolt Bander Relationship Specialty Start Date End Date Rina Solorio MD [address] [place] [id number] PCP - General Family Medicine 12/15/15 documented as of this encounter
--- OUTSIDE RECORDS SUMMARY | 2025-07-21 22:27 | XMS_ITS | Encounter Summary ---
Author Organization [employer] Address [address] [facility] [address]t [place] [address] Care Team Providers Care Second Cook And Baker Name Role Phone Rina Solorio MD Primary Care Provider [phone] Encounter Details Date Type Department Care Team (Late Contact Info) Description 12/06/2022 Orders Only [facility] CHC MED & PEDS [address] [place] [address] Izabella Anaya LPN Social History Tobacco Use [...] Description 08/22/2025 9:30 AM EST Office Visit [facility] ADULT DENTAL [address] [place] [address] Troy Walton DDS [address] [place] [address] 09/09/2025 8:30 AM EST Office Visit [facility] ADULT DENTAL [address] [place] [address] Troy Walton DDS [address] [place] [address] 12/25/2025 9:30 AM EDT Office Visit [facility] ADULT DENTAL [address] [place], [place] [phone] William Penalozaaris [address] [place] [address] documented as of this encounter Visit Diagnoses Not on filedocumented in this encounter Care Teams Second Cook And Baker Relationship Specialty Start Date End Date Rina Solorio MD [address] [place] [id number] PCP - General Family Medicine 12/15/15 documented as of this encounter
== END 2025-07-21 16:09 | disposition home or self-care (01) ==
LOC: HO.LNP 16:08
PROVIDERS: Visit Provider Internal Medicine
DX: N39.0 Urinary tract infection, site not specified (principal); R39.9 Unspecified symptoms and signs involving the genitourinary system
CPT/HCPCS: 87086